=== PATIENT | male | born 1955 | race Caucasian/White ===

== ENCOUNTER 2017-05-29 16:28 | Inpatient (IN) ==
[2017-05-29] MEDS ORDERED: DILAUDID IV ONE ×2 (16:33→18:27)
[2017-05-29] MEDS ORDERED: ZOFRAN IV ONE (16:34)
[2017-05-29] MEDS ORDERED: DILAUDID ONE (16:53)
[2017-05-29 17:33] LABS: BASO% 0.5 % (0.0-0.8); EOS# 0.05 X1000 (0.0-0.7); EOS% 0.3 % (0.0-10.0); HEMATOCRIT 31.4 % (42.0-52.0); HEMOGLOBIN 11.4 g/dL (14.0-18.0); IMM GRAN# 0.07 X1000 (0.0-0.04); IMM GRAN% 0.4 % (0.0-0.5); LYMPH# 0.63 X1000 (1.2-3.4); LYMPH% 3.6 % (20.5-51.1); MANUAL DIFF NEEDED? NO; MCH 33.1 PG (27-31); MCHC 36.3 g/dL (33-37); MCV 91.3 FL (81-99); MONO# 0.69 X1000 (0.11-0.59); MONO% 3.9 % (1.7-9.3); MPV 8.9 FL (7.4-10.4); NEUT% 91.3 % (42.2-75.2); PLT 348 X1000 (130-400); RBC 3.44 XMIL (4.7-6.1)
[2017-05-29 17:46] LABS: INR 0.98; PROTIME 10.3 Seconds (9.2-11.7); PTT 25.6 Seconds (22.0-36.0)
--- NOTE | 2017-05-29 17:48 | PROVIDER DOCUMENTATION ---
This chart was entered by Timi Oropeza Scribrosalba, acting as scribe for Cornelio Nicholson MD. HPI-Musculoskeletal Pain/Inj - GENERAL Source: patient - HX OF PRESENT ILLNESS-MUSKULOSKELTAL Quality of Pain: reports: aching, sharp, throbbing Severity in ED: moderate, severe Onset/Duration: abrupt, just prior to arrival Timing: still present, constant Modifying Factors: worse with: movement, palpation Any recent injury?: No Locality of Occurance: Home Similar Symptoms Previously?: No Recently seen or treated by another doctor?: No - FALL INJURY Location of Pain/Injury: reports: pelvis (left hip), lower extremity (left hip/ thigh) Pain Radiation: reports: no radiation Reason for Fall: reports: slipped (ladder slipped) Symptoms prior to fall:: reports: none Loss of Consciousness: no loss of consciousness Injury Associated Symptoms: reports: joint pain, snap/crack/pop sensation, unable to bear weight. denies: arm pain, back/neck pain, chest pain, dizziness - HIP/PELVIS PAIN/INJURY Hip Pain Location: reports: hip (L) Pain Radiation: reports: no radiation Context / Method of Injury: reports: injury Associated Symptoms: reports: lower back pain <Cornelio Nicholson - Last Filed: 05/29/17 17:48> - GENERAL Source: patient <Jayy Carlos - Last Filed: 05/29/17 18:30> - GENERAL Chief Complaint: Hip Injury Stated Complaint: fall hip px Time Seen by Provider: 05/29/17 16:33 - HX OF PRESENT ILLNESS-MUSKULOSKELTAL Nature of Presenting Problem: Patient is a 62 yo/ M that presents to the ER via EMS post fall. patient was on ladder, when ladder slipped and patient fell onto his left hip. He was unable to ambulate. He has shortening and external rotation of left leg. Denies any other injury( back,neck, or head). No loc. (Timi Oropeza) Patient is a 62 yo/ M that presents to the ER via EMS post fall. patient was on ladder, when ladder slipped and patient fell onto his left hip. He was unable to ambulate. He has shortening and external rotation of left leg. Denies any other injury( back,neck, or head). No loc. (Cornelio Nicholson) Review of Systems - Adult - REVIEW OF SYSTEMS - ADULT Constitutional: denies: chills, fever Eyes: denies: decreased vision, blurred vision, double vision Ears, Nose, Mouth & Throat: denies: ear discharge, epistaxis, mouth/dental pain , mouth swelling Cardiovascular: denies: chest pain, palpitations, syncope Respiratory: denies: hemoptysis, shortness of breath, wheezing Gastrointestinal: denies: abdominal pain, nausea, vomiting Genitourinary: reports: no symptoms reported Musculoskeletal: reports: joint pain. denies: back pain, neck pain Integumentary: reports: no symptoms reported Neurological: reports: no symptoms reported Psychiatric: reports: no symptoms reported Endocrine: reports: no symptoms reported Hematologic/Lymphatic: reports: no symptoms reported Allergic/Immunologic: reports: no symptoms reported All Other Systems: Reviewed and Negative <Cornelio Nicholson - Last Filed: 05/29/17 17:48> - REVIEW OF SYSTEMS - ADULT Constitutional: denies: fever <Jayy Carlos - Last Filed: 05/29/17 18:30> Past History - Adult - PAST MEDICAL HISTORY-ADULT Review of Records: reports: Old Records Reviewed, Nursing Assessment Review, Medications Reviewed Cardiovascular: reports: HTN Gastrointestinal: reports: GERD - PRIOR SURGERIES/PROCEDURES Surgical/Procedure History: reports: gastric bypass, other (penile implant x 2) - IMMUNIZATION STATUS Childhood Immunizations: See Nurse Assessment Flu Vaccine: See Nurse Assessment - FAMILY HISTORY Family History: reviewed, not pertinent - SOCIAL HISTORY Living Situation: family <Cornelio Nicholson - Last Filed: 05/29/17 17:48> - PAST MEDICAL HISTORY-ADULT Review of Records: reports: Old Records Reviewed, Nursing Assessment Review, Medications Reviewed, Social history reviewed & non-contributory. <Jayy Carlos - Last Filed: 05/29/17 18:30> Physical Exam-Injury Related - Physical Exam-Injury Related Initial Vital Signs Reviewed: Yes General Appearance: alert, mild distress, moderate distress Eyes: PERRL/EOMI, pink conjunctivae Head, Ears, Nose, Mouth & Throat: normocephalic/atraumatic, moist mucous membranes, normal ENT inspection Neck: non-tender, full range of motion, normal inspection Respiratory: chest non-tender, lungs clear, normal breath sounds, no respiratory distress, no accessory muscle use Cardiovascular: regular rate, rhythm, no edema, no murmur Abdominal Exam: normal bowel sounds, non tender, soft, no organomegaly, no pulsatile mass Back Exam: normal inspection, no CVA tenderness, no vertebral tenderness Extremity: no pedal edema, normal capillary refill, tenderness (left hip, upper femur), other (left leg is shortened and externally rotated) Integumentary: normal color, warm/dry Neurologic: wildlife veterinarian II-XII nml as tested, no motor/sensory deficits Psych/Mental Status: normal mood/affect, normal thought content, normal thought process, oriented x 3 - Glascow Coma Score Best Eye Response (Yoly): (4) open spontaneously Best Verbal Response (Yoly): (5) oriented Best Motor Response (Yoly): (6) obeys commands [place] Total: 15 <Cornelio Nicholson - Last Filed: 05/29/17 17:48> - Physical Exam-Injury Related Initial Vital Signs Reviewed: Yes General Appearance: alert <Jayy Carlos - Last Filed: 05/29/17 18:30> Progress - PLAN OF CARE/RESULTS Result Diagrams: 05/29/17 17:05 - CHANGE OF SHIFT REPORT (ED Provider) Report Given and Care Transferred to:: Dr. Carlos Time of Transfer: 18:00 Items Pending: Labs, XRAY Results <Cornelio Nicholson - Last Filed: 05/29/17 17:48> - PLAN OF CARE/RESULTS Result Diagrams: 05/29/17 17:05 05/29/17 17:05 <Jayy Carlos - Last Filed: 05/29/17 18:30> - PLAN OF CARE/RESULTS Progress/Plan/Lab Results: Vital Signs - 8 hr 05/29/17 16:37 05/29/17 18:17 Temperature 98.1 F Pulse Rate 81 87 Respiratory Rate 20 16 Blood Pressure 141/76 152/81 O2 Sat by Pulse Oximetry 99 100 Laboratory Results - last 24 hr 05/29/17 05/29/17 05/29/17 17:05 17:05 17:05 WBC 17.61 H RBC 3.44 L Hgb 11.4 L Hct 31.4 L MCV 91.3 MCH 33.1 H MCHC 36.3 RDW Std Deviation 11.3 L Plt Count 348 MPV 8.9 Immature Gran % (Auto) 0.4 Neut % (Auto) 91.3 H Lymph % (Auto) 3.6 L [place] % (Auto) 3.9 Eos % (Auto) 0.3 Baso % (Auto) 0.5 Immature Gran # (Auto) 0.07 H Neut # (Auto) 16.09 H Lymph # (Auto) 0.63 L [place] # (Auto) 0.69 H Eos # (Auto) 0.05 Baso # (Auto) 0.08 PT 10.3 INR 0.98 PTT (Actin FS) 25.6 Sodium 125 L Potassium 3.0 L Chloride 87 L Carbon Dioxide 25 Anion Gap 13 BUN 6 L Creatinine 0.6 L Estimated GFR/1.73 m2 > 60 BUN/Creatinine Ratio 10 Glucose 101 Calculated Osmolality 249 Calcium 8.4 L Total Bilirubin 0.30 AST 40 H ALT 31 Alkaline Phosphatase 63 Total Protein 5.8 L Albumin 4.0 Globulin 1.8 Albumin/Globulin Ratio 2.2 Urine Source Plasma/Serum Ethyl Alc 05/29/17 05/29/17 17:05 17:59 WBC RBC Hgb Hct MCV MCH MCHC RDW Std Deviation Plt Count MPV Immature Gran % (Auto) Neut % (Auto) Lymph % (Auto) [place] % (Auto) Eos % (Auto) Baso % (Auto) Immature Gran # (Auto) Neut # (Auto) Lymph # (Auto) [place] # (Auto) Eos # (Auto) Baso # (Auto) PT INR PTT (Actin FS) Sodium Potassium Chloride Carbon Dioxide Anion Gap BUN Creatinine Estimated GFR/1.73 m2 BUN/Creatinine Ratio Glucose Calculated Osmolality Calcium Total Bilirubin AST ALT Alkaline Phosphatase Total Protein Albumin Globulin Albumin/Globulin Ratio Urine Source CLEAN CATCH Plasma/Serum Ethyl Alc 83 H Orders Category Date Time Status CHEST-1 VIEW [RAD] Stat Exams 05/29/17 16:34 Completed FEMUR MIN 2 VIEWS LEFT [RAD] Stat Exams 05/29/17 16:34 Completed PELVIS [RAD] Stat Exams 05/29/17 16:34 Completed ALCOHOL BLOOD Stat Lab 05/29/17 17:05 Completed CBC WITH DIFF [HEME] Stat Lab 05/29/17 17:05 Completed COMPREHENSIVE METABOLIC PANEL [CHEM] Stat Lab 05/29/17 17:05 Completed PROTIME WITH INR [COAG] Stat Lab 05/29/17 17:05 Completed PTT [COAG] Stat Lab 05/29/17 17:05 Completed TYPE & SCREEN [BBK] Stat Lab 05/29/17 18:05 Ordered URINALYSIS W/POSS RFLX CULT-1 [URINALYSIS] Stat Lab 05/29/17 17:59 Results Hydromorphone [Dilaudid] Med 05/29/17 16:33 Discontinued 1 mg IV NOW ONE Hydromorphone [Dilaudid] Med 05/29/17 18:27 Discontinued 1 mg IV NOW ONE Hydromorphone [Dilaudid] Med 05/29/17 16:53 Discontinued 2 mg .ROUTE .STK-MED ONE Ondansetron [Zofran] Med 05/29/17 16:34 Discontinued 4 mg IV NOW ONE EKG [EKG] Stat Ther 05/29/17 16:39 Ordered Departure <Cornelio Nicholson - Last Filed: 05/29/17 17:48> - Departure Date of Disposition Decision: 05/29/17 Time of Disposition Decision: 18:29 Certified Medical Emergency: Emergent - Critical Care Note This patient required my direct & personal management of CC.: No <Jayy Carlos - Last Filed: 05/29/17 18:30> - Departure DIAGNOSIS: Fracture, intertrochanteric, left femur Qualifiers: Encounter type: initial encounter Fracture type: closed Fracture alignment: displaced Qualified Code(s): S72.142A - Displaced intertrochanteric fracture of left femur, initial encounter for closed fracture Disposition: ADMITTED INPATIENT 09 Condition: Good Referrals and Follow-Ups: Adam Bolaños DO [Primary Care Provider] - Attestation - Physician/ EDDIE Attestation The physician spent face to face time with patient:: Yes Advanced Practice Provider documentation review:: Supervising physician onsite and consulted in the evaluation and care of this patient. The physician did have a face to face encounter with the patient. <Cornelio Nicholson - Last Filed: 05/29/17 17:48> - Physician/ EDDIE Attestation Patient care was provided by Advanced Practice Provider:: No The physician spent face to face time with patient:: Yes Advanced Practice Provider documentation review:: Supervising physician onsite and consulted in the evaluation and care of this patient. The physician did have a face to face encounter with the patient. <Jayy Carlos. - Last Filed: 05/29/17 18:30> This chart was documented by the indicated scribe, (Timi Oropeza, Scribe) and accurately reflects the services I performed and decisions made by me, Cornelio Nicholson MD, as attested by the provider's signature.
[2017-05-29 18:02] LABS: AGAP 13; ALKALINE PHOSPHATASE 63 U/L (32-122); BUN 6 mg/dL (8-22); CALCIUM 8.4 mg/dL (8.8-10.2); CHLORIDE 87 mmol/L (98-107); COSMO 249; GOT 40 U/L (10-34); GPT 31 U/L (10-44); SODIUM 125 mmol/L (136-145); TCO2 25 mmol/L (25-35); TOTAL PROTEIN 5.8 g/dL (6.3-8.3)
--- NOTE | 2017-05-29 18:05 | Diag Imaging Result Doc PS360 ---
EXAM: CHEST-1 VIEW HISTORY: pre-op TECHNIQUE: Supine COMPARISON: None. FINDINGS: The lungs are well expanded. The heart is not enlarged. The vessels are not distended. There are no infiltrates. No effusion identified. There is a granuloma in the upper left lung. IMPRESSION: Negative exam.. Electronically signed by Corey Cox 05/29/2017 6:03 PM
--- NOTE | 2017-05-29 18:09 | Diag Imaging Result Doc PS360 ---
EXAM: PELVIS HISTORY: trauma TECHNIQUE: Single view COMPARISON: None. FINDINGS: There is a fracture through the proximal femur. The femoral head remains in the acetabulum. The femoral shaft is rotated and superiorly placed. No fracture to the pelvis. IMPRESSION: Proximal right femur fracture. Electronically signed by Corey Cox 05/29/2017 6:07 PM
--- NOTE | 2017-05-29 18:13 | Diag Imaging Result Doc PS360 ---
EXAM: FEMUR MIN 2 VIEWS LEFT HISTORY: trauma TECHNIQUE: Four views COMPARISON: None. FINDINGS: There is a fracture to the proximal femur. This extends across the intertrochanteric region into the lesser trochanter. I do not identify fracture to the greater trochanter. Femoral head remains in the acetabulum. The femoral neck and greater trochanter are superiorly angled. The proximal shaft is superiorly placed and rotated. IMPRESSION: Fracture to the proximal femur. Electronically signed by Corey Cox 05/29/2017 6:11 PM
[2017-05-29 18:17] LABS: URINE CULTURE NEEDED? NO; URINE MICRO REVIEW NEEDED? NO; URINE SOURCE CLEAN CATCH
--- NOTE | 2017-05-29 18:28 | ED EKG INTERP ---
This chart was entered by Sylvia De Leon Scribe, acting as scribe for Jayy Carlos MD. EKG Interpretation - EKG Time of EKG reading by physician:: 18:08 EKG Read and Signed by:: Jayy Carlos EKG Interpretation (*Must complete 3 of following elements*): Normal Rate: 78 Rhythm: NSR with sinus arrhythmia ST Wave: non-specific ST changes Comments: Abnormal ECG Attestation - Physician/ EDDIE Attestation Patient care was provided by Advanced Practice Provider:: No The physician spent face to face time with patient:: Yes Advanced Practice Provider documentation review:: Supervising physician onsite and consulted in the evaluation and care of this patient. The physician did have a face to face encounter with the patient. This chart was documented by the indicated scribe, (Sylvia De Leon Scribe) and accurately reflects the services I performed and decisions made by me, Jayy Carlos MD, as attested by the provider's signature.
[2017-05-29 18:35] LABS: BILIRUBIN URINE NEGATIVE (NEGATIVE); BLOOD URINE NEGATIVE (NEGATIVE); COLOR YELLOW; GLUCOSE URINE NEGATIVE (NEGATIVE); LEUKOCYTES URINE NEGATIVE (NEGATIVE); NITRITE URINE NEGATIVE (NEGATIVE); PROTEIN URINE NEGATIVE (NEGATIVE); SP GRAVITY URINE 1.011; TURBIDITY URINE CLEAR (CLEAR); UROBILINOGEN URINE NORMAL (NORMAL)
[2017-05-29 18:38] LABS: UR EPITHELIAL CELLS <10 /HPF (<10); URINE BACTERIA NEGATIVE /HPF; URINE RBC <10 /HPF (<10); URINE WBC <10 /HPF (<10)
--- NOTE | 2017-05-29 19:38 | HISTORY AND PHYSICAL ---
HISTORY OF PRESENT ILLNESS: This is a 62-year-old who presented to the emergency room on 05/29/2017. He was on a ladder. He estimates he was about 10 feet up and the ladder slipped down on the wooden deck and he suffered a right proximal femur fracture. PAST MEDICAL HISTORY: Apparently he fell off a ladder 10 years ago and suffered a left tib-fib fracture following which he gained a lot a weight and went through gastric bypass and lost quite a bit of that weight. He was over 300 pounds and now down to 210. He has history of hypertension, otherwise unremarkable past medical history. His daughter was at the bedside, but did not report family history. ALLERGIES: He has no known drug allergies. SOCIAL HISTORY: He does drink daily and he quit smoking about 6 months ago. REVIEW OF SYSTEMS: General: No weight gain or loss. No fever or chills. HEENT: Unremarkable. Respiratory: No increased work of breathing or dyspnea. Cardiovascular: No chest pain or tachy palpitation. Gastrointestinal/genitourinary: Unremarkable. Musculoskeletal/Neurologic: No significant complaints. Endocrinologic/hematologic: No significant history. PHYSICAL EXAMINATION: VITAL SIGNS: Temperature 98.1 degrees, pulse 87, respirations 16, blood pressure 150/81. Weight 210 pounds. Height 6 feet 1 inch. HEENT: Pupils are equal and round. LUNGS: Clear in all lung osei. CARDIOVASCULAR: Regular rhythm and rate without murmur or S3. ABDOMEN: Soft. SKIN: Warm and dry. CVP less than 6 cm. LABORATORY DATA: White blood cell count 26731, hematocrit 31, platelet count 348,000. Sodium 125, potassium 3.0, chloride 87, bicarb 25, BUN 6, creatinine 0.6. Liver functions unremarkable. Albumin 4.0. Pro time was 10.3. PTT was 25. Urinalysis unremarkable. IMAGING: Femur x-ray fracture of the proximal femur. Chest x-ray reported negative exam. Hip and pelvis x-ray as well as femur x-ray proximal right femur fracture. ASSESSMENT AND PLAN: 1. Proximal right femur fracture. Orthopedic I believe has seen and are planning on doing open reduction internal fixation in the morning. 2. History of alcohol. I am not sure if we will have withdrawal or not. Apparently he has quit cold turkey before and not had symptoms. 3. History of hypertension. We will watch blood pressure. 4. Status post gastric bypass surgery with good success. His general nutrition looks good. We will give him Dilaudid for pain, 1-2 mg of Dilaudid IV q.3 hours p.r.n. I may just try 1 mg q.3 hours p.r.n. Put his consult to Orthopedic. We will give normal saline at 85 mL an hour. He has a Pascal catheter in place. cc: Toan Arias MD
[2017-05-29] MEDS ORDERED: NORCO-7.5 PO PRN (20:15)
[2017-05-29] MEDS ORDERED: NS 1,000 ML IV SCH (20:15)
[2017-05-29] MEDS ORDERED: TYLENOL PO PRN (20:15)
[2017-05-29] MEDS ORDERED: NS 1,000 ML ONE (20:27)
[2017-05-29] MEDS: DILAUDID IV PRN ×2 (20:29→23:31)
[2017-05-30] MEDS: DILAUDID IV PRN ×3 (02:31→08:51)
--- NOTE | 2017-05-30 04:52 | CONSULTATION ---
DATE OF CONSULTATION: 05/29/2017 CHIEF COMPLAINT: Left hip injury. HISTORY OF PRESENT ILLNESS: Jv Olvera is a 62-year-old male who fell from a ladder, injuring his left hip. He was seen in the emergency room where he was diagnosed with a femur fracture. I was asked to see him in orthopedic consultation. He complains of left hip pain and inability to ambulate. PHYSICAL EXAMINATION: General: Well-developed, well-nourished male. He is alert, oriented, and cooperative with the exam. Vital Signs: Stable. He is afebrile. Extremities: He has pain with any range of motion of his left hip. His leg is shortened and externally rotated. His foot is neurovascularly intact. LABORATORY DATA: X-rays show a left subtrochanteric femur fracture. IMPRESSION: Left subtrochanteric femur fracture. PLAN: I think we should proceed with a left long trochanteric fixation nail placement. I have discussed this with him and his daughter. I have discussed with them the risks, benefits, and alternatives of surgery including, but not limited to bleeding, nerve damage, infection, risk from anesthesia, hardware failure, malunion, nonunion, up to and including loss of limb, life, and other imponderables. All questions were answered. No guarantees were given. They requested to proceed with this plan. We will schedule surgery tomorrow when time is available in the operating room. cc: Tarun Castillo MD
[2017-05-30 06:36] LABS: MANUAL DIFF NEEDED? NO
[2017-05-30 06:57] LABS: INR 0.96; PROTIME 10.1 Seconds (9.2-11.7); PTT 26.6 Seconds (22.0-36.0)
[2017-05-30 07:07] LABS: AGAP 9; ALBUMIN 3.8 g/dL (3.5-5.0); ALKALINE PHOSPHATASE 62 U/L (32-122); BUN 11 mg/dL (8-22); CALCIUM 8.1 mg/dL (8.8-10.2); CHLORIDE 94 mmol/L (98-107); COSMO 265; GOT 55 U/L (10-34); GPT 28 U/L (10-44); MAGNESIUM 1.7 mg/dL (1.5-2.7); POTASSIUM 3.7 mmol/L (3.5-5.1); SODIUM 132 mmol/L (136-145); TCO2 29 mmol/L (25-35); TOTAL BILIRUBIN 0.66 mg/dL (0.20-1.00); TOTAL PROTEIN 5.6 g/dL (6.3-8.3)
[2017-05-30 07:13] LABS: FREE T4 1.29 ng/dL (0.93-1.70)
[2017-05-30 07:17] LABS: BASO% 0.9 % (0.0-0.8); EOS# 0.05 X1000 (0.0-0.7); EOS% 0.9 % (0.0-10.0); HEMATOCRIT 26.9 % (42.0-52.0); HEMOGLOBIN 9.5 g/dL (14.0-18.0); LYMPH# 0.73 X1000 (1.2-3.4); MCH 32.9 PG (27-31); MCHC 35.3 g/dL (33-37); MCV 93.1 FL (81-99); MONO% 10.7 % (1.7-9.3); MPV 9.4 FL (7.4-10.4); NEUT% 74.5 % (42.2-75.2); PLT 314 X1000 (130-400); RBC 2.89 XMIL (4.7-6.1)
--- NOTE | 2017-05-30 09:16 | PROGRESS NOTE ---
DATE: 05/30/2017 SUBJECTIVE: Mr. Olvera had a pretty good night. Dr. Castillo was explaining surgery to him. His left leg was in Xiong's traction. OBJECTIVE: Vital signs: He remains afebrile. Pulse 70, respirations 18, blood pressure 118/78. Lungs: Are clear in all lung osei. Cardiovascular: Regular rate without murmur or S3. Abdomen: Soft. Skin: Warm and dry. : Urine output is 900 mL. REVIEW LAB FROM YESTERDAY: Femur x-ray, hip and pelvis x-ray: Reported the femur x-ray on the left. Fracture to the proximal femur. On pelvic and hip x-ray, there was reported a right femur fracture. ASSESSMENT: 1. He has a left proximal femur fracture with subtrochanteric, scheduled for surgery today. 2. History of alcohol, aware. 3. History of hypertension. 4. Status post gastric bypass. PLAN: Review of orders. No change. cc: Toan Arias MD
[2017-05-30] MEDS ORDERED: DIPRIVAN 1% ONE (11:17)
[2017-05-30] MEDS ORDERED: FENTANYL ONE (11:17)
[2017-05-30] MEDS ORDERED: XYLOCAINE-MPF 2% ONE (11:18)
[2017-05-30] MEDS ORDERED: QUELICIN (DOSE) ONE (11:18)
[2017-05-30] MEDS ORDERED: ZEMURON ONE (11:23)
[2017-05-30] MEDS ORDERED: NEOSPORIN G.U. IRRIGANT ONE (11:59)
[2017-05-30] MEDS: KEFZOL 2 GM/D5W 2 GM/50 ML IVPB IV ONE ×2 (12:02→13:50)
[2017-05-30] MEDS ORDERED: VERSED ONE (12:04)
[2017-05-30] MEDS ORDERED: EPHEDRINE ONE (12:26)
[2017-05-30] MEDS ORDERED: OFIRMEV 1000 MG/ISOTONIC SOLN 1,000 MG/100 ML BOTTLE ONE (12:54)
[2017-05-30] MEDS: DILAUDID ONE ×4 (13:23→13:43)
[2017-05-30] MEDS ORDERED: HALDOL IV PRN (13:44)
[2017-05-30] MEDS ORDERED: MILK OF MAGNESIA PO PRN (13:45)
[2017-05-30] MEDS ORDERED: ZOFRAN IV PRN (13:46)
[2017-05-30] MEDS: OXY IR PO PRN ×2 (15:24→18:34)
[2017-05-30] MEDS: PRILOSEC PO SCH (15:24)
[2017-05-30] MEDS: NS 1,000 ML IV SCH (15:26)
--- NOTE | 2017-05-30 15:35 | OPERATIVE NOTE ---
PROCEDURE DATE: 05/30/2017 PREOPERATIVE DIAGNOSIS: Left subtrochanteric femur fracture. POSTOPERATIVE DIAGNOSIS: Left subtrochanteric femur fracture. PROCEDURE PERFORMED: Left long trochanteric fixation nail placement. ANESTHESIA: General. SURGEON: Dr. Castillo MARKETING DATABASE COORDINATOR: Daria Kaiser PA-C, who was present throughout the case and was critical for assistance with reduction of the fracture, placement of the implants and wound closure, and her insistence greatly reduced anesthesia and operative time, and improved efficiency in the operating room. COMPLICATIONS: None. BLOOD LOSS: Minimal. DESCRIPTION OF PROCEDURE: The patient was brought to the operative suite and placed in supine position. After successful administration of general anesthesia, the patient placed on the OSI table in the usual position for left hip. The left hip and leg were prepped and draped in the usual sterile fashion. A longitudinal incision was made proximal tip to the greater trochanter. The guide pin was placed in the center of the femoral canal on AP and lateral images. It was reamed with a cannulated reamer, and then a ball-tipped guidepin was buried in distal metaphysis. Proper length nail of 420 mm was measured, and was reamed to 13 mm with the flexible reamers, and a 420 mm nail was driven into place. Then, through a stab incision laterally, a guide pin was placed in the center of the femoral head on AP and lateral images. It was measured to 105 mm. This was reamed, and the helical blade was driven until it was seated and then locked proximally. The proximal guide was removed. X-rays showed excellent placement of the proximal hardware and excellent reduction of the fracture. Traction was released. Using the perfect circles technique, through stab incisions, the distal locking screws were placed. These were drilled and measured to the proper length of 52 and 58 mm. Once these were driven into place and verified to be in good position, the wounds were copiously irrigated. Skin edge approximated with 2-0 Vicryl. Skin was closed with skin alvarez, and a sterile dressing was applied. The patient tolerated the procedure well without complication. At the end the procedure, all counts correct x2. The patient was transferred to the recovery room in stable condition. cc: Tarun Castillo MD
[2017-05-30] MEDS: KEFZOL 2 GM/D5W 2 GM/50 ML IVPB IV SCH (21:03)
[2017-05-30] MEDS: COLACE PO SCH (21:03)
[2017-05-30] MEDS: TYLENOL PO SCH (21:03)
[2017-05-30] MEDS: MORPHINE IV PRN (21:04)
[2017-05-31] MEDS: MORPHINE IV PRN ×8 (00:50→21:03)
[2017-05-31] MEDS: OXY IR PO PRN ×3 (01:57→12:23)
[2017-05-31] MEDS: TYLENOL PO SCH ×3 (05:22→20:04)
[2017-05-31] MEDS: KEFZOL 2 GM/D5W 2 GM/50 ML IVPB IV SCH (05:25)
[2017-05-31 06:05] LABS: HEMATOCRIT 22.7 % (42.0-52.0); HEMOGLOBIN 7.9 g/dL (14.0-18.0)
[2017-05-31 06:06] LABS: AGAP 8; BUN 9 mg/dL (8-22); CALCIUM 8.2 mg/dL (8.8-10.2); CHLORIDE 99 mmol/L (98-107); COSMO 273; POTASSIUM 3.4 mmol/L (3.5-5.1); SODIUM 136 mmol/L (136-145); TCO2 29 mmol/L (25-35)
--- NOTE | 2017-05-31 08:05 | PROGRESS NOTE ---
DATE: 05/31/2017 SUBJECTIVE: Jv Olvera is a 62-year-old male who is postoperative day 1 from a left long trochanteric fixation nail placement for a subtrochanteric femur fracture. He has complaints of pain in his leg, and wishes to go to rehab now. OBJECTIVE: Physical exam reveals a well-developed, well-nourished male. He is alert, oriented, and cooperative with exam. His vital signs are stable. He is afebrile. His hematocrit, however, is 22.7%. His hemoglobin is 7.9. His leg is neurovascularly intact. He has brisk capillary refill, intact sensation to light touch. His calf is soft without sign of deep venous thrombosis. His dressings are clean, dry, and intact. IMPRESSION: Stable left hip with trochanteric fixation nail placement. PLAN: We will change his dressing tomorrow. He will continue to work with Physical Therapy. We will transfuse him 2 units today as well. He will likely go to rehab the first part of the week. cc: Tarun Castillo MD
[2017-05-31] MEDS: PRILOSEC PO SCH (09:20)
[2017-05-31] MEDS: FERROUS SULFATE PO SCH (09:21)
[2017-05-31] MEDS: PERIDEX MT SCH ×2 (09:21→20:04)
--- NOTE | 2017-05-31 10:12 | PROGRESS NOTE ---
DATE: 05/31/2017 SUBJECTIVE: He does not feel real good today. In a lot of pain. He is about to start physical therapy. Would like to go back on a regular diet. OBJECTIVE: Vital Signs: Temperature 99.1 degrees, pulse 80, respirations 16, blood pressure 132/73. Lungs: Clear in all lung osei. Cardiovascular: Regular rhythm and rate without murmur or S3. Abdomen: Soft. Skin is warm and dry. Urine output 2400 mL. LAB: From yesterday reviewed. Hematocrit 26. Preop it was 31, and then today, hematocrit is 22, hemoglobin 7.9. ASSESSMENT AND PLAN: Left leg with swelling around the hip. He has good pedal pulses, 2+ and symmetrical. Continue physical therapy. He has normal saline going at 75 mL/h. Put him on a regular diet. No sign of significant alcohol withdrawals at this point. Note, acute blood loss anemia. We are going to follow hemoglobin and hematocrit. If hemoglobin drops below 7, I think we need to transfuse him. At this point, we will put him on some iron. cc: Toan Arias MD
[2017-05-31] MEDS: ICAR-C PO SCH (10:44)
[2017-05-31] MEDS: NS 1,000 ML IV SCH ×2 (15:37→20:04)
[2017-05-31] MEDS: COLACE PO SCH (20:04)
[2017-05-31] MEDS: DESYREL PO SCH (20:08)
[2017-06-01] MEDS: OXY IR PO PRN ×4 (03:05→23:13)
[2017-06-01] MEDS: TYLENOL PO SCH ×3 (05:21→20:08)
[2017-06-01 05:37] LABS: HEMATOCRIT 25.7 % (42.0-52.0); HEMOGLOBIN 8.9 g/dL (14.0-18.0)
[2017-06-01] MEDS: MORPHINE IV PRN ×5 (05:55→21:59)
[2017-06-01] MEDS: NS 1,000 ML IV SCH ×2 (09:19→22:04)
[2017-06-01] MEDS: PERIDEX MT SCH ×2 (09:20→20:08)
[2017-06-01] MEDS: ICAR-C PO SCH (09:20)
[2017-06-01] MEDS: NORVASC PO SCH (09:20)
[2017-06-01] MEDS: PRILOSEC PO SCH (09:21)
--- NOTE | 2017-06-01 09:40 | PROGRESS NOTE ---
DATE: 06/01/2017 SUBJECTIVE: Mr. Olvera has a better day today. Pain is less and was able to sleep some last night. Breathing is comfortable. OBJECTIVE: Vital Signs: Remains afebrile. Temperature 98 degrees, pulse 67, respirations 18, blood pressure 120/73 lungs are clear in all lung osei cardiovascular regular rate without murmur or S3. Abdomen: Soft. Skin: Warm and dry. Urine output 1400 mL. LAB: Hemoglobin 8.9, hematocrit 25. He got, I think, a unit of blood yesterday. ASSESSMENT AND PLAN: 1. Stable left trochanteric fixation placement. He is doing well. Continue physical therapy. He received, I think 1 unit of packed red blood cells yesterday. 2. Acute blood loss anemia. Received 1 unit of packed red blood cells. Hemoglobin 8.9, hematocrit 25. 3. History of alcohol consumption. No sign of withdrawals at this point and doing well. 4. Review of his orders. I do not see any change at this point. He is on oxycodone IR. He is on trazodone 150 mg at bedtime. Getting iron, ascorbic acid 1 a day. He is getting ferrous sulfate, as well, Colace 200 mg at bedtime, amlodipine. I think that probably will want to put him on anticoagulant postoperatively. cc: Toan Arias MD
[2017-06-01] MEDS: FERROUS SULFATE PO SCH (14:15)
[2017-06-01] MEDS: COLACE PO SCH (20:08)
[2017-06-01] MEDS: DESYREL PO SCH (22:09)
[2017-06-02] MEDS: MORPHINE IV PRN ×6 (04:52→21:08)
[2017-06-02] MEDS: TYLENOL PO SCH ×3 (04:52→21:07)
[2017-06-02 05:59] LABS: HEMOGLOBIN 8.7 g/dL (14.0-18.0)
[2017-06-02] MEDS: OXY IR PO PRN ×2 (07:23→18:41)
--- NOTE | 2017-06-02 08:20 | PROGRESS NOTE ---
DATE: 06/02/2017 SUBJECTIVE: Mr. Olvera was lying in bed this morning. Says the 1st few days were a little rough but he has actually gotten a lot of relief from the pain now. OBJECTIVE: Left Lower Extremity Examination: Just a little bit of drainage out of the most superior incision. The other incisions look great. He is neurovascularly intact to the left lower extremity. Calf was soft. ASSESSMENT: Status post left trochanteric femoral nailing for a subtrochanteric femur fracture. PLAN: I think Mr. Olvera is doing well. He has continued to get with therapy and we will get everything set up for rehab, probably starting tomorrow. cc: Mauricio Murray MD
[2017-06-02] MEDS: NORVASC PO SCH (09:11)
[2017-06-02] MEDS: FERROUS SULFATE PO SCH (09:11)
[2017-06-02] MEDS: PERIDEX MT SCH ×2 (09:11→21:08)
[2017-06-02] MEDS: PRILOSEC PO SCH (09:12)
[2017-06-02] MEDS: ICAR-C PO SCH (09:12)
[2017-06-02] MEDS: NS 1,000 ML IV SCH (11:40)
--- NOTE | 2017-06-02 13:09 | PROGRESS NOTE ---
DATE: 06/02/2017 SUBJECTIVE: Mr. Olvera is feeling much better, much less pain, and more encouraged. Comfortable, breathing comfortably, remains afebrile. OBJECTIVE: Vital Signs: Temperature 98.5 degrees, pulse 80, respirations 18, blood pressure 139/67. HEENT: Pupils are equal, round. Lungs: Clear in all lung osei. Cardiovascular: Regular rate without murmur or S3. Abdomen: Soft. Skin: Warm and dry. Urine output is 3200 mL. LABORATORY STUDIES: Hemoglobin 8.7 hematocrit 25, which is stable. ASSESSMENT AND PLAN: 1. Status post left trochanteric femoral nailing for subtrochanteric femur fracture. He is doing very well. Continue physical therapy. 2. Nutrition looks good. Eating well. 3. Acute blood loss anemia, stable. Hematocrit 25. 4. History of alcohol consumption. No sign of withdrawals. Doing well. Set him up for rehab hopefully in the morning. Looking at orders, I do not see anything to change. He gets the trazodone 150 mg at bedtime, he is on oxycodone IR 5 mg q.3 h. p.r.n. pain, and ferrous sulfate 325 mg a day. He is also given iron carbonyl ascorbic acid 1 a day and Norvasc 5 mg a day. Normal saline going at 75 mL an hour. cc: Toan Arias MD
[2017-06-02] MEDS: DESYREL PO SCH (21:08)
[2017-06-02] MEDS: COLACE PO SCH (21:08)
[2017-06-03] MEDS: NS 1,000 ML IV SCH ×2 (03:24→15:23)
[2017-06-03] MEDS: OXY IR PO PRN ×4 (03:24→18:49)
[2017-06-03] MEDS: TYLENOL PO SCH ×3 (06:35→20:46)
[2017-06-03] MEDS: PRILOSEC PO SCH (08:00)
[2017-06-03] MEDS: FERROUS SULFATE PO SCH (08:00)
[2017-06-03] MEDS: PERIDEX MT SCH ×2 (08:00→20:45)
[2017-06-03] MEDS: ICAR-C PO SCH (08:00)
[2017-06-03] MEDS: NORVASC PO SCH (08:00)
[2017-06-03] MEDS: MORPHINE IV PRN ×4 (10:02→20:46)
--- NOTE | 2017-06-03 15:08 | PROGRESS NOTE ---
DATE: 06/03/2017 SUBJECTIVE: He is feeling much better. He is anxious to go to rehab. No complaints. Bowels have been moving. He is eating well. OBJECTIVE: Vital signs: Temperature 98.6 degrees, pulse 80, respirations 18, blood pressure 138/82. CVP less than 6 cm. Lungs: Clear in all lung osei. Cardiovascular: Regular rhythm and rate without murmur or S3. LABORATORY: Urine output 1600 mL. ASSESSMENT AND PLAN: 1. Status post left trochanteric femoral nailing for subtrochanteric femur fracture. Doing very well. Ready for rehab. 2. Nutrition is good. 3. Acute blood loss anemia. Hematocrit is stable. 4. History of alcohol. He has not shown any sign of alcohol withdrawal. Hematocrit 25 this morning. Review of orders: I do no see any change. We will get him ready for rehab. He would like to go to [facility] when a bed is open. cc: Toan Arias MD
[2017-06-03] MEDS: DESYREL PO SCH (20:45)
[2017-06-03] MEDS: COLACE PO SCH (20:46)
[2017-06-04] MEDS: OXY IR PO PRN ×7 (00:29→23:16)
[2017-06-04] MEDS: MORPHINE IV PRN ×5 (01:39→22:08)
[2017-06-04] MEDS: TYLENOL PO SCH ×3 (05:44→20:31)
[2017-06-04] MEDS: NS 1,000 ML IV SCH ×2 (05:45→16:16)
[2017-06-04] MEDS: PERIDEX MT SCH ×2 (08:23→20:31)
[2017-06-04] MEDS: PRILOSEC PO SCH (08:23)
[2017-06-04] MEDS: ICAR-C PO SCH (08:23)
[2017-06-04] MEDS: NORVASC PO SCH (08:24)
--- NOTE | 2017-06-04 08:27 | PROGRESS NOTE ---
DATE: 06/04/2017 SUBJECTIVE: Mr. Olvera is a 62-year-old male who is postoperative day 5 from a left long trochanteric fixation nail placement for subtrochanteric femur fracture. He has no new complaints and he states he is awaiting to go to rehab. OBJECTIVE: General: He is well-developed, well-nourished male. He is alert, oriented, and cooperative with the examination. Vital signs: Stable. He is afebrile. Extremities: His incisions are clean, dry, and intact. No sign of infection. His calf is soft. His left leg is neurovascularly intact. ASSESSMENT: Stable postoperative day 5 from a left long trochanteric fixation nail placement. PLAN OF CARE: Mr. Olvera is doing well. He is to continue ambulating well with physical therapy. He is stable to go to rehab. We will have him follow up as an outpatient in the office when he is discharged to rehab. Dictated by CARLA Dozier for Tarun Castillo MD cc: CARLA Dozier MD
[2017-06-04] MEDS: FERROUS SULFATE PO SCH (08:30)
--- NOTE | 2017-06-04 16:28 | PROGRESS NOTE ---
DATE: 06/04/2017 SUBJECTIVE: This patient states that he is feeling better. He is complaining of mild pain at the level of the proximal thigh. He also has some swelling. Bowels have been moving. He is eating well. OBJECTIVE: Vital Signs: Temperature 98.1 degrees, pulse 69, respiratory rate 18, blood pressure 161/88, oxygen saturation 100% on room air. HEENT: Head normocephalic. No trauma. PERRLA. Neck: Supple. No JVD. No masses. Central trachea. Chest: Clear to auscultation. No wheezing. No rales. Abdomen: Soft, nontender, nondistended. No hepatosplenomegaly. Extremities: Left thigh edema mostly at the level of the proximal thigh. He has 3 wounds that look clean, dry, and intact. Neurological: The patient is alert and oriented x3. No focal deficits. No tremors. LABORATORY: No lab work done today. ASSESSMENT AND PLAN: 1. Left subtrochanteric femur fracture status post left trochanteric femoral nailing. He is doing well. Physical therapy is on board. He is ready to be discharged to a rehab center. 2. Acute blood loss anemia, stable. We will monitor his hemoglobin and hematocrit. 3. History of alcohol abuse. Aware. He is not having any signs or symptoms of withdrawal or DT. 4. Status post gastric bypass surgery with good success. In general his nutrition is good at this moment. 5. Overall, this patient is doing fine. He looks stable. Pending rehab center placement for this patient. For now, we will continue with pain medication and physical therapy. cc: Dago Reyes MD
[2017-06-04] MEDS: DESYREL PO SCH (20:31)
[2017-06-04] MEDS: COLACE PO SCH (20:31)
[2017-06-05] MEDS: MORPHINE IV PRN (02:51)
[2017-06-05 05:29] LABS: MANUAL DIFF NEEDED? NO
[2017-06-05 05:40] LABS: BASO% 0.8 % (0.0-0.8); EOS# 0.26 X1000 (0.0-0.7); EOS% 3.6 % (0.0-10.0); HEMATOCRIT 26.4 % (42.0-52.0); HEMOGLOBIN 9.2 g/dL (14.0-18.0); LYMPH# 0.56 X1000 (1.2-3.4); LYMPH% 7.7 % (20.5-51.1); MCH 32.5 PG (27-31); MCHC 34.8 g/dL (33-37); MCV 93.3 FL (81-99); MPV 8.6 FL (7.4-10.4); NEUT% 76.9 % (42.2-75.2); PLT 385 X1000 (130-400); RBC 2.83 XMIL (4.7-6.1)
[2017-06-05] MEDS: OXY IR PO PRN ×3 (05:53→12:17)
[2017-06-05] MEDS: TYLENOL PO SCH ×2 (05:53→12:17)
[2017-06-05 06:02] LABS: AGAP 12; BUN 9 mg/dL (8-22); CHLORIDE 99 mmol/L (98-107); COSMO 275; POTASSIUM 3.7 mmol/L (3.5-5.1); SODIUM 138 mmol/L (136-145); TCO2 27 mmol/L (25-35)
[2017-06-05] MEDS: ICAR-C PO SCH (08:38)
[2017-06-05] MEDS: FERROUS SULFATE PO SCH (08:38)
[2017-06-05] MEDS: PRILOSEC PO SCH (08:38)
[2017-06-05] MEDS: NORVASC PO SCH (08:38)
[2017-06-05] MEDS: PERIDEX MT SCH (08:39)
--- NOTE | 2017-06-05 10:18 | PROGRESS NOTE ---
DATE: 06/05/2017 SUBJECTIVE: Jv Olvera is a 62-year-old male who is postop from a left trochanteric fixation nail placement. He has no complaints. He is awaiting rehab placement. OBJECTIVE: General: He is a well-developed, well-nourished male. He is alert, oriented, and cooperative with the exam. Extremities: His leg is neurovascularly intact. LABS: His hematocrit is 26.4%. He walked 70 feet yesterday. ASSESSMENT: Stable left hip after trochanteric fixation nail placement. PLAN: He can be discharged to rehab. Chevy can be removed in ten days. He can return to see me when he is discharged from rehab. cc: Tarun Castillo MD
[2017-06-05 12:16] VITALS: BP 146/91
--- NOTE | 2017-06-05 15:20 | DISCHARGE SUMMARY ---
ADMISSION DATE: 05/29/2017 DISCHARGE DATE: 06/05/2017 CONSULTATIONS: Dr. Castillo with orthopedics. PERTINENT PROCEDURES: Left long trochanteric fixation nail placement by Dr. Castillo. Initial hip and pelvis x-ray showed proximal right femur fracture. DISCHARGE DIAGNOSES: 1. Left subtrochanteric femur fracture status post left long trochanteric fixation nail placement by Dr. Castillo. Patient is being discharged to [facility]. His alvarez can be removed in 10 days. He can return to see Dr. Castillo after discharge from rehab. 2. Acute blood loss anemia, stable. 3. History of alcohol abuse. Aware. The patient has not shown any signs of symptoms of alcohol withdrawal. 4. Status post gastric bypass with good success. The patient has good general nutrition. HOSPITAL COURSE: Mr. Olvera is a 62-year-old male who carries a past medical history of gastric bypass, hypertension, and history of alcohol use, presented to the ED after he fell off a ladder, injuring his left hip. He was seen in the ED. He was diagnosed with a femur fracture. Orthopedics was consulted. He had complaints of left hip pain and inability to ambulate. His x- ray did show a left subtrochanteric femur fracture. He underwent a left long trochanteric fixation nail placement by Dr. Castillo. Postop day 1 he was working with physical therapy. He had acute blood loss anemia where he was transfused with 2 units of blood. He has remained hemodynamically stable. Given his history of alcohol he was monitored closely for any alcohol withdrawal or DTs. Physical therapy was consulted for rehab placement. He chose [facility] but due to his insurance being out of [place] with [facility], there was a delay. However, he has been stable throughout his hospital stay and he is appropriate for discharge today. He has been approved and will be going to [facility]. VITAL SIGNS: Temperature is 97.9 degrees, heart rate 80, respirations 18, blood pressure 146/91, O2 is 95% on room air. DISCHARGE DIET: Regular. DISCHARGE MEDICATIONS: 1. Norvasc 5 mg p.o. daily. 2. Colace 200 mg p.o. at bedtime. 3. Ferrous sulfate 325 mg p.o. daily. 4. Icar C 1 each p.o. daily. 5. Lisinopril hydrochlorothiazide 20/25 mg tablet 1 tablet p.o. daily. 6. Milk of magnesia 30 mL p.o. daily p.r.n. 7. Prilosec 40 mg p.o. daily. 8. Oxy IR 5 mg p.o. q.3 hours p.r.n. 9. Desyrel 150 mg p.o. at bedtime. FOLLOWUP: Mr. Olvera is being discharged to [facility]. His alvarez can come out in 10 days. He can return to see Dr. Castillo after he is discharge from rehab. He can follow up with his PCP, Dr. Bolaños, after rehab. He can return to the ED for any worsening of symptoms. DISCHARGE TIME: 30 minutes. Dictated by DAYNA Sanders for Dago Reyes MD cc: MD Adam Castillo,
--- NOTE | 2017-06-06 08:27 | DISCHARGE SUMMARY ---
ADMISSION DATE: 05/29/2017 DISCHARGE DATE: 06/05/2017 ADDENDUM: The patient is seen and examined by me [id number]. All the lab work and vital signs were reviewed. On physical exam, I did not see any changes compared with yesterday. He has a left subtrochanteric femur fracture, status post left trochanteric femoral nailing. He is doing well. Physical therapy has been on board. He will be discharged today to a rehab center, [facility]. Vital signs are stable. He has been working with physical therapy. I do not see any redness or signs of infection at the level of the wounds. Orthopedic surgery has been following this patient closely. He needs to follow with orthopedic surgery in 1 or 2 weeks and he needs to remove the alvarez in about 10 days. For more information, please see the complete discharge summary. I agree with the assessment and plan. cc: Dago Reyes MD
== END 2017-06-05 15:13 ==
LOC: ED 16:28 → SUATTDRO 19:45 → 4N 19:45
PROVIDERS: ATTEND Internal Medicine

== ENCOUNTER 2018-09-21 04:27 | Inpatient (IN) ==
[2018-09-21] MEDS ORDERED: NS 1,000 ML IV ONE ×3 (04:49→07:25)
[2018-09-21] MEDS ORDERED: NS 1,000 ML ONE (04:51)
--- NOTE | 2018-09-21 05:29 | PROVIDER DOCUMENTATION ---
HPI-General Adult - General Chief Complaint: Weakness Stated Complaint: HIATAL HERNIA, BLACK EMESIS Time Seen by Provider: 09/21/18 04:57 Source: patient, old records Allergies/Adverse Reactions: Patient Allergies Allergy/AdvReac Type Severity Reaction Status Date / Time No Known Allergies Allergy Verified 12/14/17 16:12 Home Medications: Home Medication List Medication Instructions Recorded Confirmed Last Taken Type Omeprazole 40 mg PO DAILY 05/31/17 05/31/17 Unknown History Docusate Sodium [Colace] 200 mg PO HS capsule 06/05/17 Unknown Rx Ferrous Sulfate 325 mg PO DAILY@0800 tablet 06/05/17 Unknown Rx Iron Carbonyl/Ascorbic Acid 1 each PO DAILY tablet 06/05/17 Unknown Rx [Icar-C] Gabapentin 300 mg PO TID 01/03/18 01/03/18 12/12/17 20:00 History 300 mg Acetaminophen [Tylenol] [address] Q6H PRN PRN supp 01/22/18 Unknown Rx Acetylcysteine 20% [Mucomyst 20%] 3 ml INH RTBID vial 01/22/18 Unknown Rx Albuterol 2.5MG/Ipratrop 0.5MG 3 ml INH Q4H PRN PRN neb 01/22/18 Unknown Rx [Duoneb (A & A)] Bisacodyl [Dulcolax] [address] QHS supp 01/22/18 Unknown Rx Diltiazem [Cardizem] 30 mg NG Q6HR tablet 01/22/18 Unknown Rx Enoxaparin [Lovenox] 40 mg SUBQ Q24H syringe 01/22/18 Unknown Rx Metoclopramide [Reglan] 5 mg IV Q6H vial 01/22/18 Unknown Rx Pantoprazole [Protonix] 40 mg IV DAILY vial 01/22/18 Unknown Rx - History of Present Illness -Gen Adult Nature of Presenting Problems: 63 yo WM presents to the ER with severe hypotension, vomiting of black emesis of 2 days duration. He did undergo gastric by pass about 15 years ago, lost about 100 pounds and seemed to be doing well until he was hospitalized last December with a bowel obstruction and severe respiratory failure. He did have a trach and ultimately was discharged to an LTAC. Over the next few months he he was weaned off the vent and the trach was removed. Review of Systems - Adult - REVIEW OF SYSTEMS - ADULT ROS:: limited per condition Constitutional: reports: see HPI, fatique, weight loss Eyes: reports: no symptoms reported Ears, Nose, Mouth & Throat: reports: no symptoms reported Cardiovascular: reports: see HPI, syncope. denies: chest pain, edema Respiratory: reports: see HPI, dyspnea on exertion, shortness of breath, wheezing Gastrointestinal: reports: see HPI, hematemesis, poor appetite Genitourinary: reports: no symptoms reported Musculoskeletal: reports: no symptoms reported Integumentary: reports: no symptoms reported Neurological: reports: no symptoms reported Psychiatric: reports: no symptoms reported Endocrine: reports: no symptoms reported Hematologic/Lymphatic: reports: no symptoms reported Allergic/Immunologic: reports: no symptoms reported Past History - Adult - PAST MEDICAL HISTORY-ADULT Review of Records: reports: Old Records Reviewed, Nursing Assessment Review, Medications Reviewed Major Childhood Illnesses: reports: denies history Cardiovascular: reports: HTN Respiratory: reports: sleep apnea Gastrointestinal: reports: GERD Obstetrical/Gynecological: reports: denies history Genitourinary: reports: denies history Musculoskeletal: reports: denies history Neurological: reports: denies history Endocrine/Immune: reports: denies history Other Conditions: reports: denies history - PRIOR SURGERIES/PROCEDURES Surgical/Procedure History: reports: joint replacement, gastric bypass, other ( penile implant x 2) - IMMUNIZATION STATUS Childhood Immunizations: See Nurse Assessment Flu Vaccine: See Nurse Assessment - FAMILY HISTORY Family History: reviewed, not pertinent Physical Exam-General - PHYSICAL EXAM-ADULT Initial Vital Signs Reviewed: Yes - CONSTITUTIONAL General Appearance: alert, severe distress, cachetic - EYES Eyes: PERRL/EOMI, pink conjunctivae, sunken eyes - HEAD, EARS, NOSE, MOUTH & THROAT HENMT: normocephalic/atraumatic, normal ENT inspection, dental decay - NECK Neck: supple, normal inspection - RESPIRATORY Respiratory: chest non-tender, lungs clear, normal breath sounds. negative: no accessory muscle use, respiratory distress - CARDIOVASCULAR Cardiovascular: normal peripheral pulses, regular rate, rhythm, no edema - GASTROINTESTINAL (ABDOMEN) Abdominal Exam: normal bowel sounds, non tender, soft, no organomegaly, hernia ( huge incisional hernia - midline) - LYMPHATIC Lymphatic: no adenopathy - MUSCULOSKELETAL Back Exam: normal inspection, no CVA tenderness, no vertebral tenderness Extremity: normal range of motion, non-tender. negative: normal gait - SKIN Integumentary: normal color, cyanosis, mottled - NEUROLOGIC Neurologic: grossly normal, no motor/sensory deficits - PSYCHIATRIC Psych/Mental Status: normal mood/affect, normal thought content, normal thought process, oriented x 3 Progress - PLAN OF CARE/RESULTS Progress/Plan/Lab Results: Vital Signs - 8 hr 09/21/18 04:37 Temperature 97.6 F Pulse Rate 145 H Respiratory Rate 20 Blood Pressure 69/45 O2 Sat by Pulse Oximetry 88 L Orders Category Date Time Status CHEST-PORTABLE [RAD] Stat Exams 09/21/18 05:06 Ordered ABG [RESP] Routine Lab 09/21/18 05:04 Ordered AMYLASE [CHEM] Stat Lab 09/21/18 05:19 Ordered BLOOD CULTURE [BLDCUL] Stat Lab 09/21/18 05:04 Uncollected CBC WITH ELECTRONIC DIFF [HEME] Stat Lab 09/21/18 05:19 Ordered COMPREHENSIVE METABOLIC PANEL [CHEM] Stat Lab 09/21/18 05:19 Ordered MAGNESIUM [CHEM] Stat Lab 09/21/18 05:19 Ordered PROTIME WITH INR [COAG] Stat Lab 09/21/18 05:19 Ordered TROPONIN T Stat Lab 09/21/18 05:19 Ordered UA NIMS W/REFLEX CULT [URINALYSIS] Stat Lab 09/21/18 05:05 Uncollected 0.9% Sodium Chloride Inj [Ns] 1,000 ml Med 09/21/18 04:51 Discontinued .ROUTE As Directed 0.9% Sodium Chloride Inj [Ns] 1,000 ml Med 09/21/18 04:49 Active IV 999 mls/hr EKG [EKG] Stat Ther 09/21/18 04:40 Ordered Result Diagrams: 09/21/18 04:44 09/21/18 04:44 - REASSESSMENT Reassessment #1 Time Reassessed: 06:50 Status: improving (He is now perfusing better and BP is 83/57, HR 116 . He is quite alert but not making any urine,) Reassessment #2 Time Reassessed: 07:55 (Seen and examined by me at shift change. Case discussed with Dr. Dodd. Patient has cough, abdominal pain, coffee ground emesis at home x 2. Recent admission. Labs and vitals are compatible with sepsis. Will given abx for HCAP Pne and plan to admit once labs resulted. ) Status: improving Reassessment Comment: Will give 3rd liter of NS and start levophed if BP not improved. - XRAY 1 XRAY Study: Chest Impression: Abnormal (spiculated lesion BIANCA not greatly changed from December of last year), See EMR Report (EXAM: CHEST-PORTABLE INDICATION: hypotension (60/ 40) TECHNIQUE: One view COMPARISON: 01/22/2018 FINDINGS: During the interval, a tracheostomy tube has been removed. There are infiltrates throughout the left lung that are similar to the previous study. Infiltrate at the right lung base is not as severe as the previous study. No definite pleural fluid collection or pneumothorax is identified. Cardiac silhouette is unremarkable. IMPRESSION: Bilateral infiltrates, worse on the left. Electronically signed by Darryn Casarez 09/21/2018 7:57 AM 09/21/18 0757 Interpreting Physician: Darryn Casarez MD Dictated Date/Time: 09/21/18 0755 cc: Maximino Dodd MD; Adam Bolaños DO) - CT/MRI 1 CT Study: Abdomen Impression: Abnormal (EXAM: CT ABDOMEN/PELVIS W/O CONTRAST INDICATION: vomiting and hypotension TECHNIQUE: This exam was performed using automated exposure control, adjustment of mA or kV according to patient size, and/or use of iterative reconstruction technique. COMPARISON: 01/13/2018 FINDINGS: There are chronic infiltrates at both lung bases. They have probably marginally improved since the previous study. There are several small stable cystic appearing foci involving the liver. The gallbladder, spleen, pancreas, and adrenal glands are unremarkable. There are several stable renal cysts including a hyperdense cyst at the lower pole of the right kidney that probably contains blood products. The kidneys are grossly unremarkable, otherwise. The urinary bladder is nondistended. There is a large amount of dense retained barium in the colon and rectum from a recent small bowel follow-through study. There are multiple distended loops of small bowel containing air-fluid levels. The distal small bowel is collapsed. This indicates a high-grade small bowel obstruction. The exact transition point is not clearly identified, in part due to the beam hardening artifact from the dense barium in the adjacent colon. There is a supraumbilical ventral abdominal wall hernia that has developed during the interval. It does contain a loop of small bowel. However, the hernia has a wide mouth, and this does not appear to be the point of obstruction. There has been a prior gastric bypass. There is a small amount of fluid in the distal esophagus indicating reflux. There are degenerative changes throughout the spine. IMPRESSION: 1.Findings consistent with a high-grade small bowel obstruction. 2.Chronic infiltrates at both lung bases that may have improved slightly since the previous study. 3.Interval development of a supraumbilical ventral abdominal wall hernia. Please see above discussion. 4.Other external/ nonacute findings detailed above. Electronically signed by Darryn Casarez 2018 8:42 AM 09/21/18 0842 Interpreting Physician: Darryn Casarez MD Dictated Date/Time: 09/21/18 0830 cc: Maximino Dodd MD; Adam Bolaños DO), See EMR Report - CONSULTS/PCP/HOSPITALIST Notification #1 *Consult/PCP/Hospitalist*: DAYNA Shah Time Discussed: 09:05 (admit to [facility]) Consult Disposition: Will see in ED #2 Consult: Alee, surgeon, page for consult 0900 Time Discussed: 09:07 (Dr. Bates returned call) Consult Disposition: Will see in ED (or on floor) - CHANGE OF SHIFT REPORT (ED Provider) Report Given and Care Transferred to:: Dr Mike Items Pending: CT/MRI Results (Needs ICU admission - Dx is uncertain) Departure - Departure Date of Disposition Decision: 09/21/18 Time of Disposition Decision: 09:07 DIAGNOSIS: Small bowel obstruction due to postoperative adhesions, Septic shock Sepsis Qualifiers: Sepsis type: sepsis due to unspecified organism Qualified Code(s): A41.9 - Sepsis, unspecified organism Bilateral pneumonia Qualifiers: Pneumonia type: due to unspecified organism Lung location: unspecified part of lung Qualified Code(s): J18.9 - Pneumonia, unspecified organism Disposition: ADMITTED INPATIENT 09 Certified Medical Emergency: Emergent Condition: Serious Referrals and Follow-Ups: Adam Bolaños DO [Primary Care Provider] - - Critical Care Note This patient required my direct & personal management of CC.: Yes Total Time (mins): 45 Critical Care Statement: This patient required my direct personal management to treat or rule out processes, the absence of which, could potentiallly result in sudden, clinically significant life or limb threatening deterioration. Attestation - Physician/ EDDIE Attestation Patient care was provided by Advanced Practice Provider:: No The physician spent face to face time with patient:: Yes Advanced Practice Provider documentation review:: Supervising physician onsite and consulted in the evaluation and care of this patient. The physician did have a face to face encounter with the patient.
[2018-09-21 05:30] LABS: BASO# 0.03 X1000 (0.0-0.2); BASO% 0.2 % (0.0-0.8); EOS# 0.01 X1000 (0.0-0.7); EOS% 0.1 % (0.0-10.0); HEMATOCRIT 45.3 % (42.0-52.0); HEMOGLOBIN 15.7 g/dL (14.0-18.0); IMM GRAN# 0.05 X1000 (0.0-0.04); IMM GRAN% 0.4 % (0.0-0.5); LYMPH# 0.61 X1000 (1.2-3.4); LYMPH% 4.6 % (20.5-51.1); MCH 32.6 PG (27-31); MCHC 34.7 g/dL (33-37); MCV 94.2 FL (81-99); MONO# 1.22 X1000 (0.11-0.59); MONO% 9.1 % (1.7-9.3); MPV 10.2 FL (7.4-10.4); NEUT# 11.43 X1000 (1.4-6.5); NEUT% 85.6 % (42.2-75.2); PLT 437 X1000 (130-400); RBC 4.81 XMIL (4.7-6.1); RDW 12.3 % (11.5-14.5); WBC 13.35 X1000 (4.8-10.8)
[2018-09-21 05:36] LABS: INR 0.94; PROTIME 13.4 Seconds (11.0-16.0)
[2018-09-21 05:46] LABS: ALLEN TEST YES; BE 4.9 mmoll (-3.0-3.0); BLOOD TYPE ARTERIAL; HCO3-(ACT) 28.5 mmoll (20.0-26.0); METHB 0.8 % (0.0-1.5); O2(CT) 17.1 mL/dL (15.0-23.0); PCO2(98.6) 41 mmHg (35-45); PO2(98.6) 58 mmHg (60-100); SAMPLE BLOOD; SAO2 91.9 % (95.0-100.0); THB 13.7 g/dL (11.5-17.4); pH(98.6) 7.46 (7.35-7.45)
[2018-09-21 05:49] LABS: MODALITY CANNULA
[2018-09-21 05:55] LABS: ALB/GLOB RATIO 1.6; ALBUMIN 4.4 g/dL (3.5-5.0); CALCIUM 9.3 mg/dL (8.8-10.2); CREATININE 2.5 mg/dL (0.7-1.2); MAGNESIUM 2.2 mg/dL (1.5-2.7); POTASSIUM 3.5 mmol/L (3.5-5.1); TOTAL BILIRUBIN 2.17 mg/dL (0.20-1.00); TOTAL PROTEIN 7.2 g/dL (6.3-8.3)
[2018-09-21 07:13] LABS: URINE SOURCE CLEAN CATCH
[2018-09-21] MEDS ORDERED: VANCOMYCIN 1 GM/NS 1 GM/250 ML IVPB IV ONE (07:26)
[2018-09-21] MEDS ORDERED: ZOSYN 3.375 GM in NS 50 ML IV ONE (07:26)
[2018-09-21] MEDS ORDERED: PROTONIX 80 MG in NS 80 ML IV ONE (07:26)
[2018-09-21] MEDS ORDERED: LEVAQUIN 750 MG/D5W 750 MG/150 ML IVPB IV ONE (07:26)
[2018-09-21 07:27] LABS: BILIRUBIN URINE SMALL (NEGATIVE); BLOOD URINE NEGATIVE (NEGATIVE); COLOR YELLOW; GLUCOSE URINE NEGATIVE (NEGATIVE); KETONE URINE TRACE mg/dL (NEGATIVE); LEUKOCYTES URINE NEGATIVE (NEGATIVE); NITRITE URINE NEGATIVE (NEGATIVE); PH URINE 5.5; PROTEIN URINE 100 mg/dL (NEGATIVE); SP GRAVITY URINE 1.022; TURBIDITY URINE HAZY (CLEAR); UR EPITHELIAL CELLS <10 /HPF (<10); URINE BACTERIA NEGATIVE /HPF; URINE RBC <10 /HPF (<10); URINE WBC <10 /HPF (<10); UROBILINOGEN URINE 2 mg/dL (NORMAL)
[2018-09-21 07:31] LABS: URINE CASTS NONE SEEN
[2018-09-21] MEDS ORDERED: LEVOPHED 8 MG in D5 1/2 NS 250 ML IV SCH (07:45)
[2018-09-21] MEDS ORDERED: NS 50 ML ONE (07:52)
--- NOTE | 2018-09-21 08:00 | Diag Imaging Result Doc PS360 ---
EXAM: CHEST-PORTABLE INDICATION: hypotension (60/40) TECHNIQUE: One view COMPARISON: 01/22/2018 FINDINGS: During the interval, a tracheostomy tube has been removed. There are infiltrates throughout the left lung that are similar to the previous study. Infiltrate at the right lung base is not as severe as the previous study. No definite pleural fluid collection or pneumothorax is identified. Cardiac silhouette is unremarkable. IMPRESSION: Bilateral infiltrates, worse on the left. Electronically signed by Darryn Casarez 09/21/2018 7:57 AM
[2018-09-21] MEDS: PROTONIX 80 MG in NS 80 ML IV SCH ×2 (08:45→17:29)
--- NOTE | 2018-09-21 08:45 | Diag Imaging Result Doc PS360 ---
EXAM: CT ABDOMEN/PELVIS W/O CONTRAST INDICATION: vomiting and hypotension TECHNIQUE: This exam was performed using automated exposure control, adjustment of mA or kV according to patient size, and/or use of iterative reconstruction technique. COMPARISON: 01/13/2018 FINDINGS: There are chronic infiltrates at both lung bases. They have probably marginally improved since the previous study. There are several small stable cystic appearing foci involving the liver. The gallbladder, spleen, pancreas, and adrenal glands are unremarkable. There are several stable renal cysts including a hyperdense cyst at the lower pole of the right kidney that probably contains blood products. The kidneys are grossly unremarkable, otherwise. The urinary bladder is nondistended. There is a large amount of dense retained barium in the colon and rectum from a recent small bowel follow-through study. There are multiple distended loops of small bowel containing air-fluid levels. The distal small bowel is collapsed. This indicates a high-grade small bowel obstruction. The exact transition point is not clearly identified, in part due to the beam hardening artifact from the dense barium in the adjacent colon. There is a supraumbilical ventral abdominal wall hernia that has developed during the interval. It does contain a loop of small bowel. However, the hernia has a wide mouth, and this does not appear to be the point of obstruction. There has been a prior gastric bypass. There is a small amount of fluid in the distal esophagus indicating reflux. There are degenerative changes throughout the spine. IMPRESSION: 1.Findings consistent with a high-grade small bowel obstruction. 2.Chronic infiltrates at both lung bases that may have improved slightly since the previous study. 3.Interval development of a supraumbilical ventral abdominal wall hernia. Please see above discussion. 4.Other external/nonacute findings detailed above. Electronically signed by Darryn Casarez 09/21/2018 8:42 AM
[2018-09-21] MEDS: NS 1,000 ML IV SCH ×2 (09:45→17:29)
[2018-09-21] MEDS: ZOFRAN IV PRN (09:50)
--- NOTE | 2018-09-21 10:40 | HISTORY AND PHYSICAL ---
HISTORY OF PRESENT ILLNESS: Ms. Olvera says he has felt bad now for really several months, 2 to 3 months. He has had trouble with his food. He says he can swallow it but it does not seem to pass and he is uncomfortable for several hours. It seemed to get better but in this last couple of weeks, it has been worse. Last, he has not had a bowel movement since Saturday. Today is Saturday and he is very uncomfortable. He has been throwing up for the last 3 or 4 days with coffee- grounds dark emesis. He thinks he has lost about 10 pounds in the last week. He was scheduled to have surgery, I think, to fix a ventral hernia per Dr. Vickers in October. PAST MEDICAL HISTORY: 1. He used to have a history of morbid obesity. 2. Status post CABG surgery. 3. Hypertension. 4. Possible COPD. 5. Gastroesophageal reflux disease. 6. Bilateral lower extremity neuropathy. PAST SURGICAL HISTORY: Gastric bypass, left hip arthroplasty, and left tibia-fibula repair. He has had a tracheostomy, I think, from his last hospitalization. PROLONGED HOSPITALIZATION: I think he was here 6 weeks with respiratory failure, prolonged hospitalization. He denies any fever or chills. He denies any specific abdominal pain except for when after he eats. He has some discomfort in the mid abdomen, in the right lower quadrant. No gross hematochezia. No gross hematuria or dysuria. No trouble with voiding. SOCIAL HISTORY: He quit smoking a couple years ago. He was smoking a pack per day for over 40 years. He drank occasional alcohol. His alcohol preference was vodka. I did not question on how much he is drinking at this time. FAMILY HISTORY: I think his grandmother of cancer and his father of cancer. There is history of coronary artery disease in the family as well. ALLERGIES: No known drug allergies. REVIEW OF SYSTEMS: Constitutional: He did not report any fever or chills. He thinks he has lost about 10 pounds in the last week. He is status post gastric bypass surgery. He had a history of former morbid obesity. HEENT: No change in visual or hearing acuity reported. Neck: No neck pain or adenopathy reported. No issues with thyroid. Respiratory: No increased work of breathing or dyspnea. Cardiovascular: No chest pain or tachy palpitations. He has a history of status post CABG. GI and : Bowel obstruction. Unable to have a bowel movement for 4 or 5 days. No gross hematochezia. He has had nausea with vomiting and dark coffee-grounds emesis. Endocrinologic/Hematologic: No significant history. Musculoskeletal/Neurologic: No specific complaints. PHYSICAL EXAMINATION: VITAL SIGNS: In the emergency room, temperature 97.6 degrees, pulse 111, respirations 27, blood pressure 83/57. HEENT: Pupils were equal. Conjunctivae pink. Sclerae were clear. NECK: No distended neck veins. NEUROLOGIC: He was alert and oriented x3. Pleasant. Gave a good history. LYMPHATICS: No cervical or supraclavicular adenopathy. No femoral adenopathy appreciated. CARDIOVASCULAR: Regular rhythm and rate without murmur or S3. PMI nondisplaced. Carotid, radial, and femoral pulses appear to be equal, 2+ and symmetrical. ABDOMEN: He has a midline scar but there is no point tenderness. I did not appreciate any organomegaly. No abdominal distention or sign of ascites. EXTREMITIES: Without edema. LABORATORY DATA: White count 13,350, hematocrit 45, platelet count 437,000. Sodium 138, potassium 3.5, chloride 89, BUN 49, creatinine 2.5, blood sugar 160, calcium 9.3. AST was 11, ALT was 8, alkaline phosphatase 92, amylase 43. Prothrombin time is 13.4. Urinalysis unremarkable. Blood gas, pH was 7.46, pCO2 was 41, PO2 was 58, and 89% saturation. That is on [address] findings consistent with high-grade small bowel obstruction. Chronic infiltrates in both lung bases that may have improved slightly since previous study. Interval development of a supraumbilical ventral abdominal wall hernia. Chest x-ray, bilateral infiltrates, worse on the left. On CT, these looked chronic in comparison of old CTs. ASSESSMENT AND PLAN: 1. Small-bowel obstruction, ventral abdominal wall hernia. We will consult surgery. We will try and hydrate him. Intravenous fluids, normal saline, we will run that at 125 an hour. Looking back, I think he has had an echocardiogram done on 12/15 but difficult interpretation. Left ventricle appeared to have a left ventricular ejection fraction of 60%. No regional wall motion abnormalities. I do not see any significant valvular abnormalities. Aortic valve gradient was 10 to 15 mmHg so he should be able to tolerate fluids well. 2. He has what appears to be chronic bibasilar infiltrates. We will go ahead and cover him empirically to cover pneumococcal and gram-negative organisms. We will use Zosyn at a renal dose. 3. He has a creatinine of 2.5. Looking back at his creatinine before, his creatinine on 01/22/2018 was 0.6 so I think this is acute renal, suspect it is prerenal, so it should correct with fluids. We will check his urine for spot sodium, osmolality, and creatinine. We will check his T4, TSH, and cortisol level in the morning, morning cortisol level. 4. He has a history of coronary artery bypass graft. I do not see any sign of active cardiac ischemia. 5. History of hypertension. 6. Underlying chronic obstructive pulmonary disease suspected and chronic basilar scarring. 7. Gastroesophageal reflux disease. 8. Status post gastric bypass. 9. Peripheral neuropathy. Aware. REVIEW OF HIS CURRENT MEDICATIONS: He is on Cardizem 30 mg q.6. He is taking Colace 200 mg at bedtime and it looks like he was on Lovenox once a day at 40 mg subcutaneous, ferrous sulfate 325 mg a day, gabapentin 300 mg t.i.d., Icar C one a day, Reglan 5 mg. They have that IV. I do not believe he is taking that. Omeprazole 40 mg a day, Protonix 40 mg IV a day was now listed on there as well. We will put him on some DuoNebs. He is not having any bronchospasm or trouble with air movement at this time. cc: Toan Arias MD
[2018-09-21] MEDS: ATROVENT NEB INH SCH ×4 (10:41→23:24)
[2018-09-21] MEDS: XOPENEX NEB INH SCH ×4 (10:41→23:25)
[2018-09-21 11:04] LABS: IRON SATURATION 8 %; TIBC 120 ug/dL; TOTAL IRON 10 ug/dL (53-167); UNBOUND IRON 110 ug/dL (112-346)
[2018-09-21 11:31] LABS: FERRITIN 608 ng/mL (30-400)
[2018-09-21 11:35] LABS: HEMATOCRIT 40.3 % (42.0-52.0); HEMOGLOBIN 13.7 g/dL (14.0-18.0)
[2018-09-21] MEDS: HUMULIN R SUBQ SCH ×3 (12:00→22:03)
[2018-09-21 13:01] LABS: UR CREAT RANDOM 178.8 mg/dL (14-26)
--- NOTE | 2018-09-21 13:46 | Diag Imaging Result Doc PS360 ---
EXAM: CHEST/ABD TUBE PLACEMENT INDICATION: NGT placement TECHNIQUE: One view COMPARISON: 09/21/2018 FINDINGS: There is a recently placed NG tube. The tip projects over the upper abdomen below the diaphragm and assumed to be in the lumen of the stomach in expected position. Limited views of the lung parenchyma are essentially stable as compared to the earlier study performed today. IMPRESSION: Interval placement of NG tube in expected position as described. Electronically signed by Darryn Casarez 09/21/2018 1:44 PM
[2018-09-21] MEDS: ZOSYN 2.25 GM in NS 50 ML IV SCH (15:52)
[2018-09-21] MEDS: MORPHINE IV PRN (15:55)
[2018-09-21 17:21] LABS: HEMATOCRIT 39.4 % (42.0-52.0); HEMOGLOBIN 13.7 g/dL (14.0-18.0)
[2018-09-21] MEDS ORDERED: BLISTEX MEDICATED BERRY LIP BALM TOP PRN (17:31)
[2018-09-21] MEDS: PULMICORT INH SCH (19:30)
[2018-09-21] MEDS: ZYVOX 600 MG/D5W 600 MG/300 ML IVPB IV SCH (21:30)
[2018-09-21] MEDS: CARAFATE LIQUID PO SCH (21:30)
[2018-09-21] MEDS: DULCOLAX PR SCH (21:30)
[2018-09-21 23:59] LABS: HEMATOCRIT 34.8 % (42.0-52.0)
[2018-09-22] MEDS: ZOSYN 2.25 GM in NS 50 ML IV SCH ×3 (01:23→15:19)
[2018-09-22] MEDS: NS 1,000 ML IV SCH ×4 (01:23→17:40)
[2018-09-22] MEDS: CARAFATE LIQUID PO SCH ×4 (01:24→21:29)
[2018-09-22] MEDS: PROTONIX 80 MG in NS 80 ML IV SCH ×2 (02:44→12:37)
[2018-09-22] MEDS: XOPENEX NEB INH SCH ×5 (03:03→20:26)
[2018-09-22] MEDS: ATROVENT NEB INH SCH ×5 (03:03→20:26)
--- NOTE | 2018-09-22 03:09 | GASTROENTEROLOGY CONSULTATION ---
DATE: 09/21/2018 REQUESTING PHYSICIAN: Dr. Arias. PRIMARY CARE DOCTOR: Dr. Adam Bolaños. REASON FOR CONSULTATION: Coffee-grounds emesis, small-bowel obstruction. HISTORY OF PRESENT ILLNESS: Mr. Olvera is a 63-year-old male who was admitted on 09/21/2018 for abdominal discomfort, nausea, and vomiting coffee-grounds for the last 3 to 4 days. He has had constipation. His last bowel movement was more than 1 week ago. He thinks he has lost about 10 pounds in the last 1 week. He has a history of gastric bypass done 15 years ago at [facility]. He had admission for small-bowel obstruction in 2018. At that time, he had exploratory laparotomy with lysis of adhesions and treatment of possible internal hernia by Dr. Butch Vickers on 01/14/2018. During the same hospitalization, the patient had respiratory failure requiring a tracheostomy and tracheostomy exchange. Prior to that, he had upper GI bleeding on 12/17/2017 where he had an EGD which showed evidence of a Larisa-Aguilar tear with clot and some fresh oozing, and this was treated with clipping. The last few days prior to admission, he had seen Dr. Vickers who had done a GI series with barium swallow which showed: 1. Gastroesophageal reflux. 2. Small paraesophageal hernia. 3. Prior gastric bypass and small gastric remnant. No filling defect or ulceration noted in the gastric remnant. The proximal small bowel was essentially unremarkable. This admission, he had a CT scan which showed: 1. Evidence of a large amount of dense retained barium in the colon and rectum from the recent small bowel follow through. 2. Multiple distended loops of small intestine containing air-fluid levels. The distal small bowel is collapsed. This indicates a high-grade small bowel obstruction. The transition point is not clearly identified. There was evidence of supraumbilical ventral abdominal hernia that has develop during the interval. It does contain a loop of small bowel. However, the hernia is wide-mouthed and does not appear to be the point of obstruction. There has been prior gastric bypass. There is small amount of fluid in the distal esophagus indicating reflux. There are DJD changes throughout the spine. Gastroenterology was consulted for further management. PAST MEDICAL HISTORY: 1. Obesity, status post gastric bypass 15 years ago at [facility] by Dr. Banks 2. Coronary artery disease. 3. Hypertension. 4. Chronic smoker, quit 2 years ago. 5. COPD. 6. Reflux disease. 7. Larisa-Aguilar tear. 8. Small bowel obstruction because of adhesions. 9. Bilateral lower extremity neuropathy. PAST SURGICAL HISTORY: 1. EGD. 2. Gastric bypass surgery. 3. Tracheostomy and tracheostomy exchange. 4. Exploratory laparotomy. 5. Lysis of adhesions. 6. Left hip arthroplasty. 7. Left tibia-fibula repair. ALLERGIES: No known drug allergies. SOCIAL HISTORY: He quit smoking 2 years ago. Prior to that, he had a 30 pack year history of smoking. He drinks 2 alcoholic beverages every day. He quit about a few days ago. He likes to drink vodka. He also likes to drink Mountain Dew but he has quit a few days ago. FAMILY HISTORY: Grandmother of cancer. Father of cancer. History of coronary artery disease in the family. MEDICATIONS IN THE HOSPITAL: Include budesonide, Humulin R, ipratropium, Xopenex, norepinephrine, normal saline at 100 mL per hour, Zofran, Protonix drip, Zosyn, linezolid. MEDICATIONS AT HOME: Include omeprazole, ferrous sulfate, stool softeners, Tylenol, Protonix, Mucomyst. The final list is being compiled. REVIEW OF SYSTEMS: Denies any fevers, rigors, chills, chest pain, shortness of breath, dyspnea. Denies any vomiting blood. Does have cough with emesis. He had an NG tube placed in the ER which is draining approximately 200 mL of bilious and some dark aspirate. Denies any bright red blood in the stools. He has had constipation for the last 1 week. Does have history of neuropathy in the lower extremities. Denies any genitourinary complaints. PHYSICAL EXAMINATION: Vital Signs: Temperature of 98.2 degrees, pulse rate of 99, respiratory rate 24, blood pressure 118/71, saturating 92% on room air. Body weight of 215 pounds. BMI 28.4 kg/m2. General Appearance: Moderately-built, moderately-nourished, lying in bed, in no acute distress. HEENT: No pallor. No icterus. NG tube in place. Pupils equal, reactive to light. Neck: Supple. Abdomen: Abdominal wall hernia noted at the site of previous incision. Protuberant abdomen. No guarding or rebound. Extremities: No cyanosis, clubbing, and edema. Neurologic: He was alert, awake, oriented x3. LABS: Hemoglobin and hematocrit are 13.7 and 40.3, white count 13.3, platelet count of 437,000, MCV of 94.2. INR 0.94, PTT of 13.4. ABG showing pH of 7.46, pCO2 of 41, PO2 of 58. This is on 36% FiO2. Sodium 138, potassium 3.5, chloride of 89, bicarb of 28, anion gap of 21, BUN of 49, creatinine 2.5, glucose of 160, calcium is 9.3, hemoglobin A1c is 5. Iron percentage of 8, iron level of 10 - suggesting iron deficiency, ferritin 110. Total bilirubin is 2.17 , AST 11, ALT 8, alkaline phosphatase 72, total protein is 7.4, albumin of 4.4, amylase of 43, and lactate of 1.9, B12 of 373. Urinalysis has protein positive, trace ketones, small amount of bilirubin, and occult blood is negative. Blood cultures x2 have been drawn and they are currently pending. CT scan of the abdomen and pelvis as described in the HPI. Chest x-ray showed bilateral infiltrates, worse on the left. IMPRESSION AND PLAN: 1. Small-bowel obstruction. 2. Ventral abdominal hernia. 3. Coffee-grounds emesis. 4. Question of pneumonia and chest x-ray showing bilateral infiltrates. 5. History of gastric bypass. 6. History of reflux disease. 7. Constipation. RECOMMENDATIONS: 1. We will keep the patient's NG tube to intermittent suction. We will give him IV fluids, give him a Protonix drip. We will give him soap suds enemas for constipation and evaluate the response. We will watch serial hematocrit and transfuse as needed. Surgery team has been consulted for high-grade obstruction. The patient is known to Dr. Butch Vickers. 2. We will follow the patient closely. If the patient continues to have coffee- grounds emesis, then we may have to do EGD, the timing of which we will decide based on the clinical course. 3. The above plan of care was discussed with the patient and family at bedside. All questions were answered. Please call us with any further questions. I also recommend the patient to quit alcohol and excessive use of Mountain Dews and sodas. The above plan was discussed with the family and the primary care team, and all questions were answered. cc: MD Toan Rivers MD Thomas E. Lockard, DO MTDD
[2018-09-22 05:01] LABS: INR 1.13; PROTIME 15.4 Seconds (11.0-16.0)
[2018-09-22 05:02] LABS: PTT 44.6 Seconds (22.3-41.8)
[2018-09-22 05:16] LABS: ALLEN TEST YES; BE 3.6 mmoll (-3.0-3.0); BLOOD TYPE ARTERIAL; HCO3-(ACT) 27.6 mmoll (20.0-26.0); METHB 0.7 % (0.0-1.5); O2(CT) 19.6 mL/dL (15.0-23.0); O2HB 94.2 % (95.0-99.0); PCO2(98.6) 43 mmHg (35-45); PO2(98.6) 79 mmHg (60-100); SAMPLE BLOOD; SAO2 96.4 % (95.0-100.0); THB 14.8 g/dL (11.5-17.4); pH(98.6) 7.43 (7.35-7.45)
[2018-09-22 05:19] LABS: MODALITY CANNULA
[2018-09-22 05:20] LABS: BASO# 0.04 X1000 (0.0-0.2); BASO% 0.4 % (0.0-0.8); EOS# 0.05 X1000 (0.0-0.7); EOS% 0.5 % (0.0-10.0); HEMATOCRIT 35.2 % (42.0-52.0); HEMOGLOBIN 12.2 g/dL (14.0-18.0); IMM GRAN# 0.02 X1000 (0.0-0.04); IMM GRAN% 0.2 % (0.0-0.5); LYMPH% 5.9 % (20.5-51.1); MCH 33.1 PG (27-31); MCHC 34.7 g/dL (33-37); MCV 95.4 FL (81-99); MONO# 0.73 X1000 (0.11-0.59); MONO% 7.2 % (1.7-9.3); NEUT# 8.72 X1000 (1.4-6.5); NEUT% 85.8 % (42.2-75.2); PLT 330 X1000 (130-400); RBC 3.69 XMIL (4.7-6.1); RDW 12.1 % (11.5-14.5); WBC 10.16 X1000 (4.8-10.8)
[2018-09-22 05:39] LABS: AGAP 12; ALBUMIN 2.9 g/dL (3.5-5.0); ALKALINE PHOSPHATASE 70 U/L (32-122); BUN 40 mg/dL (8-22); CALCIUM 8.3 mg/dL (8.8-10.2); CHLORIDE 95 mmol/L (98-107); COSMO 278; ESTIMATED GFR > 60; GLUCOSE 128 mg/dL (70-104); GOT 11 U/L (10-34); GPT 6 U/L (10-44); MAGNESIUM 2.1 mg/dL (1.5-2.7); POTASSIUM 2.9 mmol/L (3.5-5.1); SODIUM 133 mmol/L (136-145); TCO2 26 mmol/L (25-35); TOTAL BILIRUBIN 1.03 mg/dL (0.20-1.00); TOTAL PROTEIN 5.7 g/dL (6.3-8.3)
[2018-09-22 05:40] LABS: FREE T4 1.59 ng/dL (0.93-1.70); TSH 0.64 uIUmL (0.27-4.20)
[2018-09-22] MEDS: HUMULIN R SUBQ SCH ×4 (06:31→22:12)
--- NOTE | 2018-09-22 07:18 | Diag Imaging Result Doc PS360 ---
EXAM: CHEST-PORTABLE 09/22/2018 HISTORY: pna TECHNIQUE: AP portable at 0508 COMMENT: There is an NG tube with its tip in the stomach. There are coarse opacities throughout the left upper lobe and to some extent in the lower lobes. Compared to 09/21/2018 this appears slightly worse. There has been improvement with regard to the right lung compared to 01/22/2018. IMPRESSION: Left upper lobe pneumonia. Electronically signed by Costa Rodriguez 09/22/2018 7:16 AM
[2018-09-22] MEDS: PULMICORT INH SCH ×2 (07:20→20:26)
--- NOTE | 2018-09-22 07:21 | EKG Report ---
Test Performed on : 09/21/2018 04:47:53 AM Test Reason : weakness Blood Pressure : / mmHG Vent. Rate : 129 BPM Atrial Rate : 129 BPM P-R Int : 128 ms QRS Dur : 084 ms QT Int : 320 ms P-R-T Axes : 011 057 008 degrees QTc Int : 468 ms Sinus tachycardia. Nonspecific ST abnormality Abnormal ECG When compared with ECG of 21-DEC-2017 15:28, Sinus rhythm. has replaced Atrial flutter. T wave inversion no longer evident in Lateral leads Unconfirmed Result
--- NOTE | 2018-09-22 08:05 | PROGRESS NOTE ---
DATE: 09/22/2018 SUBJECTIVE: Mr. Jv Olvera is a 63-year-old white male who was admitted with abdominal distention yesterday. He is in the ICU. He has had a history of gastric bypass. He had previous surgery, exploratory laparotomy with lysis of adhesions per Dr. Vickers in December 2017. He has a ventral hernia which Dr. Vickers has plans to repair. Overnight, he had a bowel movement and flatus and his abdomen is soft now without significant tenderness. He is hemodynamically stable. I will ask Dr. Vickers to see him. cc: Malka Bates MD
[2018-09-22] MEDS: ZYVOX 600 MG/D5W 600 MG/300 ML IVPB IV SCH ×2 (08:21→21:29)
[2018-09-22] MEDS: DULCOLAX PR SCH ×2 (08:22→21:29)
--- NOTE | 2018-09-22 08:41 | GENERAL SURGERY CONSULTATION ---
DATE: 09/22/2018 SUBJECTIVE: NG tube is in place. It has bilious output. No abdominal pain. He is unsure if he is having anything in the way of bowel function. He is overall pretty disgruntled with his current situation understandably . No fevers. OBJECTIVE: Vital Signs: Pulse 70, blood pressure 134/78. General: He is alert. NG tube is in place. Cardiovascular: Normal rate. Abdomen: Soft. There is a soft reducible midline hernia with no overlying skin changes. Integument: Warm and dry. Laboratory Data: White count is 10, hematocrit is 35. Creatinine is 1.0. ASSESSMENT AND PLAN: This is a 63-year-old gentleman with a recent prolonged intensive care unit stay. He has a history of a Michael-en-Y gastric bypass. He had an exploratory laparotomy with lysis of adhesions and he has unfortunately developed a ventral hernia but the hernia is not the source of obstruction. He did have a small-bowel follow-through last week from our office that showed passive contrast all the way to the colon. There is still some residual contrast. I agree with his bowel stimulation and nasogastric tube decompression. His abdominal examination is benign. I do not suspect that the source of his obstruction is his hernia. We will monitor him closely. cc: Facundo Vickers MD MTDD
[2018-09-22] MEDS ORDERED: POTASSIUM CHLORIDE 20 MEQ/SWI 20 MEQ/100 ML IVPB IV SCH (09:10)
[2018-09-22] MEDS ORDERED: PROTONIX IV SCH (09:15)
--- NOTE | 2018-09-22 09:37 | PROGRESS NOTE ---
DATE: 09/23/2018 SUBJECTIVE: Mr. Olvera has an NG tube in. He feels much better. Abdomen feels softer and less discomfort. OBJECTIVE: Vital signs: Temperature 97.4 degrees, pulse 70, respirations 18, blood pressure 135/78. Eyes: Pupils are equal and round. Lungs: Clear in all lung osei. Cardiovascular: Regular rhythm and rate without murmur or S3. Abdomen: Soft. Nondistended. I do not hear bowel sounds at this time in any of the abdominal quadrants. Extremities: No edema. URINE OUTPUT: 9800 mL. ASSESSMENT AND PLAN: 1. Recent prolonged intensive care unit today. 2. History of Michael-en-Y gastric bypass. 3. He has had an exploratory laparotomy with lysis of adhesions and unfortunately developed a ventral hernia, but the hernia is not source of obstruction. He does have small bowel. 4. He had a small bowel follow-through in Dr. Vickers's office last week which showed passive contrast all the way to the colon. There is still some residual contrast. So, I am going to try bowel stimulation and nasogastric tube decompression. No surgery planned at this time. 5. Ventral hernia which has been electively repaired. 6. Coffee-ground emesis. Upper GI irritation suspected. We may have to do an EGD, the timing of which will depend on his clinical course. 1. History of gastroesophageal reflux disease. 2. History of constipation. 3. Abdominal and pelvic CT findings consistent with high-grade small bowel obstruction and chronic infiltrates in both bases that have improved since previous study. I do not see any active evidence of infection or bacterial pneumonia at this time. Chest x-ray repeated this morning, however, suggested a left upper lobe pneumonia. So, I will continue antibiotics. 4. Review of his orders: He is on Carafate 1 g q.6 hours. He is on Pulmicort 0.5 mg inhalation b.i.d. He is on Xopenex inhalation. He is on insulin sliding scale. He is getting normal saline at 125 mL an hour. Zosyn 2.25 g IV q.8. Linezolid 600 mg IV q.12h. Levofloxacin 750 mg, 1 dose. He was started on Protonix drip which has been stopped. He got 1 g of vancomycin loading dose. So right now, he is on just the Zosyn 2.25 g daily and linezolid. I think his Protonix drip has been discontinued. So, I will put him on Protonix 40 mg q.12. cc: Toan Arias MD
[2018-09-22] MEDS ORDERED: POTASSIUM CHLORIDE 20% LIQUID PO ONE (10:21)
--- NOTE | 2018-09-22 11:10 | GASTROENTEROLOGY PROGRESS NOTE ---
DATE: 09/22/2018 SUBJECTIVE: Patient resting in bed. His family is at the bedside. His NG tube aspiration has slowed down. This morning he has about 100 to 200 mL. He denies any nausea, he has not had a bowel movement yet. He is trying to have a bowel movement. He was given enemas with no benefit so far. OBJECTIVE: Vital signs: Temperature of 97.4, pulse rate of 70, respiratory rate 18, blood pressure 134/78, saturating 98% on 5 L nasal cannula. General Appearance: Thin , moderately built, lying in bed, in no acute distress. HEENT: Pale conjunctivae. No icterus. NG tube in place. Neck: Supple. Abdomen: Soft, nontender, nondistended. Ventral hernia noted. No guarding, no rebound. Extremities: No cyanosis, clubbing. Neurologic: Alert, awake, oriented. LABORATORIES: Hemoglobin and hematocrit is 12.2, 35.2, white count 10.1, platelet count 330,000. INR 1.13. PTT of 15.4, PTT of 44.6, pH of 7.43, pCO2 43, PO2 of 79. This is on FiO2 of 38%. Sodium 132, potassium 2.9, chloride 95, bicarb 36, anion gap of 12, BUN of 40. Creatinine 1. Glucose of 128. Calcium is 8.3, magnesium 2.1. Total bilirubin is 1.03. AST 11, ALT 6, alkaline phosphatase 72, total protein 7, albumin of 2.9 amylase of 43. Cortisol 13.1. Stool for occult blood is negative. Blood culture x1 have been drawn yesterday , currently pending. IMPRESSION AND PLAN: 1. Small bowel obstruction. Dr. Butch Vickers has seen the patient. At this point, we will continue conservative management. 2. Constipation: Last bowel movement was 1 week ago. So he is constipated. We will continue with the bowel regimen. Will start him on Dulcolax and MiraLAX and evaluate the response. We will check a KUB today. 3. Reflux disease. Continue PPIs for now. 4. History of gastric bypass complicated with internal hernia, requiring lysis of adhesions in [address] Butch Vickers. 5. Coffee ground emesis. Continue to watch hemoglobin and hematocrit. Continue Protonix twice daily. The NG output is now bilious. 6. He is on broad-spectrum antibiotics for possible pneumonia and sepsis. 7. We will follow along. The above plan of care was discussed with the patient and family at bedside. All questions answered. Please call us with any further questions. cc: MD Adam Rivers DO MTDD
--- NOTE | 2018-09-22 11:25 | Diag Imaging Result Doc PS360 ---
EXAM: KUB ABDOMEN 09/22/2018 HISTORY: evaluate for constipation or obstruction TECHNIQUE: KUB COMMENT: There is retained barium in the colon. There is a markedly distended gas-filled small bowel loop in the midabdomen. This was not evident on the previous examination of 09/21/2018, although that study did not demonstrate the entire abdomen. IMPRESSION: Focal ileus versus partial small bowel obstruction. Electronically signed by Costa Rodriguez 09/22/2018 11:23 AM
[2018-09-22 12:00] LABS: HEMATOCRIT 36.6 % (42.0-52.0); HEMOGLOBIN 12.6 g/dL (14.0-18.0)
[2018-09-22] MEDS: MORPHINE IV PRN (18:38)
[2018-09-22] MEDS: MIRALAX NG SCH (21:29)
[2018-09-23] MEDS: ZOSYN 2.25 GM in NS 50 ML IV SCH (00:43)
[2018-09-23] MEDS: NS 1,000 ML IV SCH ×4 (01:44→21:37)
[2018-09-23] MEDS: CARAFATE LIQUID PO SCH ×4 (01:44→20:22)
[2018-09-23] MEDS: MORPHINE IV PRN ×6 (01:53→20:21)
[2018-09-23] MEDS: XOPENEX NEB INH SCH ×7 (02:37→23:45)
[2018-09-23] MEDS: ATROVENT NEB INH SCH ×7 (02:37→23:44)
[2018-09-23] MEDS: HUMULIN R SUBQ SCH (04:40)
[2018-09-23 05:37] LABS: BASO# 0.05 X1000 (0.0-0.2); BASO% 0.5 % (0.0-0.8); EOS# 0.14 X1000 (0.0-0.7); EOS% 1.4 % (0.0-10.0); HEMATOCRIT 37.8 % (42.0-52.0); HEMOGLOBIN 12.8 g/dL (14.0-18.0); IMM GRAN# 0.07 X1000 (0.0-0.04); IMM GRAN% 0.7 % (0.0-0.5); LYMPH# 0.65 X1000 (1.2-3.4); LYMPH% 6.6 % (20.5-51.1); MCH 32.6 PG (27-31); MCHC 33.9 g/dL (33-37); MCV 96.2 FL (81-99); MONO# 0.97 X1000 (0.11-0.59); MONO% 9.8 % (1.7-9.3); MPV 9.6 FL (7.4-10.4); NEUT# 8.02 X1000 (1.4-6.5); PLT 306 X1000 (130-400); RBC 3.93 XMIL (4.7-6.1); RDW 11.8 % (11.5-14.5)
[2018-09-23 06:01] LABS: AGAP 12; CHLORIDE 103 mmol/L (98-107); POTASSIUM 2.9 mmol/L (3.5-5.1); SODIUM 141 mmol/L (136-145); TCO2 26 mmol/L (25-35)
[2018-09-23 06:02] LABS: ALB/GLOB RATIO 0.9; ALBUMIN 2.8 g/dL (3.5-5.0); ALKALINE PHOSPHATASE 70 U/L (32-122); BUN 20 mg/dL (8-22); CALCIUM 8.7 mg/dL (8.8-10.2); COSMO 284; CREATININE 0.6 mg/dL (0.7-1.2); ESTIMATED GFR > 60; GLUCOSE 106 mg/dL (70-104); GOT 10 U/L (10-34); GPT 6 U/L (10-44); TOTAL BILIRUBIN 0.79 mg/dL (0.20-1.00); TOTAL PROTEIN 5.9 g/dL (6.3-8.3)
--- NOTE | 2018-09-23 06:57 | Diag Imaging Result Doc PS360 ---
EXAM: CHEST-PORTABLE HISTORY: pneumonia TECHNIQUE: Portable chest single view COMPARISON: 09/22/2018 FINDINGS: There are infiltrates throughout the left lung. There is mild pulmonary edema. No cardiomegaly. No change in the nasogastric tube. The overall appearance is similar to the prior study. IMPRESSION: No interval improvement. Electronically signed by Corey Cox 09/23/2018 6:54 AM
[2018-09-23] MEDS ORDERED: POTASSIUM CHLORIDE 20% LIQUID NG ONE (07:21)
[2018-09-23] MEDS: PULMICORT INH SCH ×2 (07:39→19:44)
[2018-09-23] MEDS ORDERED: POTASSIUM CHLORIDE 60 MEQ in NS 500 ML IV ONE ×4 (08:00)
[2018-09-23] MEDS: ZYVOX 600 MG/D5W 600 MG/300 ML IVPB IV SCH ×2 (08:34→20:22)
[2018-09-23] MEDS: MAXIPIME 2 GM in NS 100 ML IV SCH ×2 (08:34→20:22)
[2018-09-23] MEDS: DULCOLAX PR SCH ×2 (08:35→20:21)
[2018-09-23] MEDS: MIRALAX NG SCH ×2 (08:35→20:21)
[2018-09-23] MEDS: PROTONIX 80 MG in NS 80 ML IV SCH ×3 (08:35)
--- NOTE | 2018-09-23 08:46 | Diag Imaging Result Doc PS360 ---
EXAM: ABDOMEN FLAT/UPRIGHT HISTORY: obstruction TECHNIQUE: Flat and upright, two views COMPARISON: 09/22/2018 FINDINGS: No free air beneath the diaphragm. There is contrast throughout the colon. Dilated bowel in the mid abdomen remains and is unchanged. No organomegaly. There is a penile implant. IMPRESSION: No interval improvement. Electronically signed by Corey Cox 09/23/2018 8:43 AM
[2018-09-23] MEDS ORDERED: SODIUM PHOSPHATE 30 MMOL in NS 250 ML IV ONE (09:00)
[2018-09-23] MEDS: LOPRESSOR IV SCH ×2 (11:52→17:17)
--- NOTE | 2018-09-23 19:45 | GENERAL SURGERY PROGRESS NOTE ---
DATE: 09/23/2018 SUBJECTIVE: Having bowel movements every night. NG tube output has been minimal. He is drinking ice chips. OBJECTIVE: Vital Signs: No fevers. Pulse has been in the 70s. Blood pressure 147/88, oxygen saturation 93% on 4 liters. General: He is alert. Abdomen: Soft. Integument: Warm and dry. Cardiovascular: Normal rate. LABORATORY DATA: White count is 9, hematocrit 37. Creatinine is 0.6. Potassium is 2.9. Magnesium is 2.0. ASSESSMENT/PLAN: A 63-year-old gentleman with a bowel obstruction which seems to be resolving. I would recommend aggressive repletion of his electrolytes with potassium greater than 4 and magnesium greater than 2. It does look like he has been administered potassium overnight. We will continue to follow along. We can discontinue his nasogastric tube and give him clear liquids solely, and he needs to be out of bed moving as much as possible. cc: Facundo Vickers MD
[2018-09-23] MEDS: DESYREL PO SCH (20:21)
[2018-09-23] MEDS: COLACE PO SCH (20:21)
[2018-09-23] MEDS: CARDIZEM PO SCH (20:21)
--- NOTE | 2018-09-23 23:28 | PROGRESS NOTE ---
DATE: 09/23/2018 SUBJECTIVE: The patient is resting comfortably in bed. He states that he has been having bowel movements, and he has less abdominal pain. OBJECTIVE: Vital Signs: Temperature 98.1 degrees, blood pressure 153/92, heart rate 87, respirations 18, oxygen saturation 99% on 4 L nasal cannula. General: This is a chronically ill- appearing elderly male, lying in bed, in no acute distress. Heart: S1, S2 normal. Regular rate and rhythm. Lungs: Equal air entry bilaterally. No wheezing. No rales. No rhonchi. Abdomen: Positive bowel sounds. Soft, nontender, nondistended. Extremities: No edema. No cyanosis. Neurologic: The patient is alert and oriented x3. LABS: White blood cell count 9.9, hemoglobin 12, hematocrit 37, platelets 306,000. Sodium 141, potassium 2.9, chloride 103, CO2 26, BUN 20, creatinine 0.6, glucose 106, phosphorus 2.6, calcium 8.7. Chest x-ray reveals infiltrates throughout the left lung. Abdominal x-ray shows dilated bowel in the mid abdomen. ASSESSMENT AND PLAN: 1. Small bowel obstruction. The patient has been advanced to a clear diet. We will monitor the patient's response closely. General Surgery is following. 2. Pneumonia. The patient's antibiotics have been switched. We will continue to monitor the patient closely for improvement. Also, a procalcitonin level has been ordered. Continue bronchodilator therapy. 3. Paroxysmal atrial fibrillation. The patient is rate controlled. We will restart the oral diltiazem. 4. Insomnia. We will restart the trazodone. 5. Hypokalemia. We will replace the patient's potassium. 6. Hypophosphatemia. We will replace the patient's phosphorus. 7. History of gastric bypass. Aware. 8. Gastrointestinal prophylaxis. Continue with Protonix. 9. Deep vein thrombosis prophylaxis. Continue with SCDs. 10. Disposition. The patient is stable for transfer to the medical floor. cc: Preeti Bunn MD
--- NOTE | 2018-09-24 00:06 | GASTROENTEROLOGY PROGRESS NOTE ---
DATE: 09/23/2018 SUBJECTIVE: No acute overnight events, afebrile. Patient denies nausea, vomiting, fevers, chest pain, shortness of breath, abdominal pain, blood in stool. He reports feeling 100% better after having a bowel movement this morning. OBJECTIVE: Vitals: 98.3, pulse 70, respiratory rate 20, blood pressure 135/78, O2 saturation 97% on 4 L nasal cannula. General: The patient is awake, alert, oriented, no acute distress, pleasant. HEENT: Extraocular motor intact. Anicteric. Moist mucous membranes. NG tube in place with minimal bilious fluid in reservoir. Neck: No lymphadenopathy. Lungs: Decreased breath sounds at the bases bilaterally. No wheezing or crackles. Cardiac: Regular rate and rhythm. No murmurs. Abdomen: Prior surgical scar noted. Distended. Mild tympany. No tenderness. No ascites. Extremities: Lower extremities no clubbing, cyanosis, edema. Neuro: Nonfocal. LABS: White count 9.9, hemoglobin of 12.8, platelets of 306,000, sodium 141, potassium 2.9, chloride 103, carbon dioxide of 26, BUN of 20, creatinine of 0.6, glucose of 106, AST of 10, ALT of 6, alkaline phosphatase is 70, total protein of 5.9, albumin of 2.8, total bilirubin of 0.79. KUB shows dilated bowel in the midabdomen that remains unchanged. Chest x-ray shows infiltrates throughout the left lung. Mild pulmonary edema. No interval improvement compared to prior x-ray on the . ASSESSMENT AND PLAN: 1. Mr. Olvera is a 63-year-old gentleman admitted with small-bowel obstruction that is improved significantly with nasogastric tube decompression and supportive care. He has had a bowel movement overnight. His abdomen is soft, nontender. No significant output from his nasogastric tube since it was last checked, recommend discontinuing NG tube and initiating patient on clear liquid diet as tolerated. 2. Constipation. Continue bowel regimen. 3. Gastroesophageal reflux disease. Continue PPI for GI prophylaxis for now. 4. History of gastric bypass complicated by internal hernia status post lysis of adhesions by Dr. Vickers in 2018. 5. Upper gastrointestinal bleed with coffee-grounds emesis. Hemoglobin remains stable at this point, will continue PPI for now. No bloody output from NG tube. 6. He is currently on antibiotics for possible pneumonia. We will continue to follow with you. The above plan was discussed with patient at bedside. All questions were answered. Please call with any questions or concerns.
[2018-09-24] MEDS: PROTONIX 80 MG in NS 80 ML IV SCH (00:47)
[2018-09-24] MEDS: MORPHINE IV PRN ×6 (02:01→21:16)
[2018-09-24] MEDS: CARDIZEM PO SCH ×4 (02:01→21:07)
[2018-09-24] MEDS: CARAFATE LIQUID PO SCH ×4 (02:02→21:07)
[2018-09-24] MEDS: ATROVENT NEB INH SCH ×6 (03:45→23:29)
[2018-09-24] MEDS: XOPENEX NEB INH SCH ×6 (03:45→23:29)
[2018-09-24 04:53] LABS: BASO# 0.06 X1000 (0.0-0.2); BASO% 0.6 % (0.0-0.8); EOS# 0.18 X1000 (0.0-0.7); EOS% 1.7 % (0.0-10.0); HEMOGLOBIN 11.9 g/dL (14.0-18.0); IMM GRAN# 0.18 X1000 (0.0-0.04); IMM GRAN% 1.7 % (0.0-0.5); LYMPH# 0.56 X1000 (1.2-3.4); LYMPH% 5.2 % (20.5-51.1); MCH 32.7 PG (27-31); MCV 96.2 FL (81-99); MONO# 1.06 X1000 (0.11-0.59); MONO% 9.9 % (1.7-9.3); MPV 9.7 FL (7.4-10.4); NEUT# 8.68 X1000 (1.4-6.5); NEUT% 80.9 % (42.2-75.2); PLT 342 X1000 (130-400); RBC 3.64 XMIL (4.7-6.1); RDW 11.9 % (11.5-14.5); WBC 10.72 X1000 (4.8-10.8)
[2018-09-24 05:14] LABS: AGAP 13; BUN 10 mg/dL (8-22); CALCIUM 8.1 mg/dL (8.8-10.2); CHLORIDE 104 mmol/L (98-107); COSMO 281; CREATININE 0.4 mg/dL (0.7-1.2); ESTIMATED GFR > 60; GLUCOSE 113 mg/dL (70-104); MAGNESIUM 1.7 mg/dL (1.5-2.7); PHOSPHORUS 3.4 mg/dL (2.7-4.5); POTASSIUM 3.1 mmol/L (3.5-5.1); SODIUM 141 mmol/L (136-145); TCO2 24 mmol/L (25-35)
[2018-09-24] MEDS ORDERED: MAGNESIUM SULFATE 2 GM/S.W.I. 2 GM/50 ML IVPB IV ONE (05:28)
[2018-09-24] MEDS ORDERED: POTASSIUM CHLORIDE 60 MEQ in NS 500 ML IV ONE (05:28)
--- NOTE | 2018-09-24 07:29 | Diag Imaging Result Doc PS360 ---
EXAM: CHEST-PORTABLE INDICATION: pneumonia TECHNIQUE: One view COMPARISON: 09/23/2018 FINDINGS: Diffuse bilateral infiltrates, worse on the left, are grossly stable. No new consolidation is identified. Cardiac silhouette is stable. IMPRESSION: Stable chest. Electronically signed by Darryn Casarez 09/24/2018 7:26 AM
[2018-09-24] MEDS: PULMICORT INH SCH ×2 (07:40→19:40)
[2018-09-24] MEDS: MAXIPIME 2 GM in NS 100 ML IV SCH ×2 (08:48→23:36)
[2018-09-24] MEDS: MIRALAX NG SCH ×2 (08:48→21:07)
[2018-09-24] MEDS: ZYVOX 600 MG/D5W 600 MG/300 ML IVPB IV SCH ×2 (08:48→21:06)
[2018-09-24] MEDS: DULCOLAX PR SCH ×2 (08:48→21:07)
[2018-09-24] MEDS: PROTONIX IV SCH ×2 (09:54→21:08)
--- NOTE | 2018-09-24 10:07 | INFECTIOUS DISEASE CONSULT REP ---
DATE: 09/24/2018 CONCLUSION: The patient has a bilateral pneumonia. I suspect that it may be due to aspiration in view of the fact that the patient came in with a small bowel obstruction. RECOMMENDATIONS: I agree with treating the patient with cefepime and Zyvox. DISCUSSION: The patient initially came in the hospital with a small-bowel obstruction. He had to have an NG tube placed. He is gradually getting better and the NG tube is out. The patient in the past day has become short of breath. His chest x-ray shows bilateral infiltrates. His CBC shows a white count of 10,720, hemoglobin 11.9, and platelet count of 342,000. Creatinine is 0.4. GFR is greater than 60. Liver function studies are normal. Blood cultures are negative. The patient is unable to produce a sputum. PAST MEDICAL HISTORY/REVIEW OF SYSTEMS: Eyes and ears: He can see and hear okay. Neck: No stiffness. Respiratory: See present illness. Cardiovascular: No chest pain or palpitations. GI: No nausea, vomiting, or diarrhea. : No dysuria or flank pain. Bones , joints, muscles: The patient has chronic pain in his left leg and low back area secondary to osteoarthritis. Neurologic: The patient does not have seizures. He has not recently lost any motor or sensory function. PREVIOUS HOSPITALIZATIONS AND OPERATIONS: He has had a fracture of his left leg which required placement of a plate. He had another fracture at a different time and he has got a alonso in his femur. He has had a gastric bypass. He has had 3 penile implants. He has also been admitted to the hospital with another small bowel obstruction, which required surgery. The obstructions have been due to adhesions. As a result of his last surgery on the abdomen, he has developed an abdominal wall hernia. MEDICAL DISEASES: Positive for small bowel obstruction, abdominal wall hernia, hypertension, and gastroesophageal reflux disease. INFECTIOUS DISEASE HISTORY: Infectious disease history positive for pneumonia, negative for UTI. FAMILY HISTORY: Positive for diabetes mellitus, hypertension, myocardial infarction, stroke, and cancer. SOCIAL HISTORY: [place] . He stays with his mother for a few days a week and with his girlfriend for other few days in the week. The girlfriend has dogs as pets. The other times, the patient stays in his own home and he is there alone. He is retired from working at a [email or web address] plant. The patient drinks alcoholic beverages but does not smoke or use illicit drugs. ALLERGIES: No known allergies. HOME MEDICATIONS: Tylenol, Mucomyst, albuterol inhaler, Dulcolax, Cardizem, Colace, gabapentin, omeprazole and Protonix. PHYSICAL EXAMINATION: Vital Signs: Temperature was 100, now it is 98.8. The pulse is 73, respirations 15, blood pressure 91/73. General: This is a fairly healthy- appearing, middle-aged male. He is in no acute distress at this time. Head/eyes/ears/nose/throat: He can hear my spoken words and see near objects. He does not have any white patches on his tongue. Neck: No meningismus. Lungs: Clear to auscultation. Cardiovascular: Heart rate is regular. Abdomen: Soft. There is a large abdominal wall hernia. Bowel sounds are present. Neurologic: Patient is alert. He can move his extremities. There is no tremor. His sensation is intact to touch. Integument: No rash. Bones, joints, muscles: The patient does not have any swollen joints or muscle tenderness. Thank you for the consult. cc: Nestor Mabry MD MTDD
--- NOTE | 2018-09-24 13:02 | Diag Imaging Result Doc PS360 ---
KUB ABDOMEN - 09/24/2018 INDICATION: indigestion, vomiting, belching COMPARISON: 09/23/2018 FINDINGS: There has been essentially no movement of the contrast throughout the distal colon and rectum. There is a stable gas-distended loop of small bowel centrally in the left upper quadrant. No definite free air. IMPRESSION: Gas-distended small bowel loop concerning for partial obstruction. Overall poor motility of colonic contrast material. No change from prior. Electronically signed by Kevyn Giles 09/24/2018 1:00 PM
[2018-09-24] MEDS: LOVENOX SUBQ SCH (17:14)
[2018-09-24 18:27] LABS: MAGNESIUM 1.8 mg/dL (1.5-2.7); PHOSPHORUS 2.8 mg/dL (2.7-4.5); POTASSIUM 3.6 mmol/L (3.5-5.1)
--- NOTE | 2018-09-24 20:16 | PROGRESS NOTE ---
DATE: 09/24/2018 SUBJECTIVE,: The patient was feeling okay this morning, however, after breakfast he had an episode of nausea and then emesis. OBJECTIVE: Vital signs: Temperature 99 degrees, blood pressure 159/90, heart rate 83, respirations 23, O2 saturation 96% on 4 L nasal cannula. General: This is a chronically ill- appearing male lying in bed in no acute distress. Heart: S1, S2 normal. Regular rate and rhythm. Lungs: Coarse breath sounds bilaterally. Abdomen: Positive bowel sounds. Soft, nontender, nondistended. Extremities: No edema, no cyanosis. Neurologic: The patient is alert and oriented x4. LABORATORY DATA: White blood cell count 10, hemoglobin 11, hematocrit 35, platelets 342,000. Sodium 141, potassium 3.1, chloride 104, CO2 of 24, BUN 10, creatinine 0.4 glucose 113, albumin 3, procalcitonin 0.47. ASSESSMENT AND PLAN: 1. Small bowel obstruction. The patient did not tolerate his breakfast this morning. A repeat abdominal x-ray this afternoon showed a partial small bowel obstruction. Will defer to the general surgeon. 2. Pneumonia. Continue with IV antibiotic therapy as directed by Dr. Mabry. 3. Paroxysmal atrial fibrillation. Continue on oral diltiazem. 4. Insomnia. Continue on trazodone. 5. History of gastric bypass. Aware. 6. Anemia. Stable. 7. Hypokalemia. Will replace the patient's potassium. 8. Deep vein thrombosis prophylaxis. Will start the patient on Lovenox. cc: Preeti Bunn MD
[2018-09-24] MEDS: DESYREL PO SCH (21:07)
[2018-09-24] MEDS: COLACE PO SCH (21:07)
[2018-09-25] MEDS: CARAFATE LIQUID PO SCH ×4 (01:47→22:28)
[2018-09-25] MEDS: CARDIZEM PO SCH ×4 (01:47→22:28)
--- NOTE | 2018-09-25 01:52 | GASTROENTEROLOGY PROGRESS NOTE ---
DATE: 09/24/2018 SUBJECTIVE: No acute overnight events. Afebrile. The patient reports tolerating clear liquid diet yesterday and this morning. He denies any nausea, vomiting, fevers, chest pain, shortness of breath or abdominal pain. He continues to have bowel movements. OBJECTIVE: Vital Signs: Temperature 98.8 degrees, heart rate 73, respiratory rate 15, blood pressure 91/73, O2 saturation of 96% on 4 L nasal cannula. General: Awake, alert, oriented, in no acute distress. HEENT: Anicteric. Moist mucous membranes. Neck: No JVD or lymphadenopathy. Cardiac: Regular rate and rhythm. No murmurs. Lungs: Clear to auscultation bilaterally anteriorly. Abdomen: Postsurgical scars. Nondistended. Soft. Normoactive bowel sounds. No rebound or guarding. Lower Extremities: No clubbing, cyanosis, or edema Neurologic: Nonfocal. LABORATORY DATA: White count 10.7, hemoglobin 11.9, platelets of 342,000. Sodium 141, potassium 3.1, chloride of 104, bicarbonate of 24, BUN 10, creatinine 0.4. IMAGING: Abdominal x-ray shows gas distended small bowel loop concerning for partial obstruction, overall poor motility of colonic contrast material, no change from prior. ASSESSMENT AND PLAN: Mr. Olvera is a 63-year-old gentleman admitted with small-bowel obstruction that is improved significantly with supportive care with nasogastric tube decompression. He has had multiple bowel movements since yesterday. He denies any abdominal complaints. He is tolerating clear liquid diet. Would recommend advancing diet as tolerated as per surgery. 1. Constipation. Continue bowel regimen. 2. Gastroesophageal reflux disease. Continue proton pump inhibitor. 3. History of gastric bypass complicated by internal hernia status post lysis of adhesions by Dr. Vickers in 2018. 4. Upper gastrointestinal bleed with coffee-grounds emesis. Hemoglobin remains stable. The patient is on proton pump inhibitor. Will continue to monitor hemoglobin. 5. Pneumonia. The patient is currently on antibiotics. Infectious Disease team is following and managing antibiotics. The plan was discussed with the patient at bedside. All questions were answered. Please call with any questions or concerns.
[2018-09-25] MEDS: XOPENEX NEB INH SCH ×6 (03:26→23:30)
[2018-09-25] MEDS: ATROVENT NEB INH SCH ×6 (03:26→23:30)
--- NOTE | 2018-09-25 04:57 | GENERAL SURGERY PROGRESS NOTE ---
DATE: 09/24/2018 SUBJECTIVE: Continues to have reliable bowel function. No fevers. No tachycardia. OBJECTIVE: Vital signs: Blood pressures systolics in the 140 to 160s. General: He is alert. Cardiovascular: Normal rate. Abdomen: Soft. There is a reducible ventral hernia that is nontender. LABORATORY DATA: White count 10, hematocrit 35. Creatinine 0.4, potassium is low at 3.1. ASSESSMENT AND PLAN: A 63-year-old gentleman with partial bowel obstruction, history of multiple abdominal operations. Would continue to replete his electrolytes and okay to begin advancing his diet. Will allow him to recover from this prior to proceeding with ventral hernia repair. The source of the site of obstruction was not in the hernia itself, but more intra-abdominal. cc: Facundo Vickers MD
[2018-09-25 06:55] LABS: BASO# 0.08 X1000 (0.0-0.2); BASO% 0.5 % (0.0-0.8); EOS# 0.07 X1000 (0.0-0.7); EOS% 0.4 % (0.0-10.0); HEMATOCRIT 36.7 % (42.0-52.0); HEMOGLOBIN 12.5 g/dL (14.0-18.0); IMM GRAN# 0.35 X1000 (0.0-0.04); IMM GRAN% 2.1 % (0.0-0.5); LYMPH# 0.48 X1000 (1.2-3.4); LYMPH% 2.9 % (20.5-51.1); MCH 32.4 PG (27-31); MCHC 34.1 g/dL (33-37); MCV 95.1 FL (81-99); MONO# 1.68 X1000 (0.11-0.59); MONO% 10.3 % (1.7-9.3); MPV 9.7 FL (7.4-10.4); NEUT% 83.8 % (42.2-75.2); PLT 367 X1000 (130-400); RBC 3.86 XMIL (4.7-6.1); RDW 11.9 % (11.5-14.5); WBC 16.36 X1000 (4.8-10.8)
[2018-09-25] MEDS: MORPHINE IV PRN ×4 (06:56→22:15)
[2018-09-25 07:05] LABS: AGAP 16; ALBUMIN 3.1 g/dL (3.5-5.0); BUN 8 mg/dL (8-22); CALCIUM 8.2 mg/dL (8.8-10.2); CHLORIDE 98 mmol/L (98-107); COSMO 274; CREATININE 0.5 mg/dL (0.7-1.2); ESTIMATED GFR > 60; GLUCOSE 134 mg/dL (70-104); MAGNESIUM 1.7 mg/dL (1.5-2.7); POTASSIUM 3.3 mmol/L (3.5-5.1); SODIUM 137 mmol/L (136-145); TCO2 23 mmol/L (25-35)
[2018-09-25] MEDS ORDERED: MAGNESIUM SULFATE 2 GM/S.W.I. 2 GM/50 ML IVPB IV ONE (07:39)
[2018-09-25] MEDS ORDERED: KLOR-CON PO ONE (07:39)
[2018-09-25] MEDS: PULMICORT INH SCH ×2 (08:12→19:30)
[2018-09-25] MEDS: MAXIPIME 2 GM in NS 100 ML IV SCH ×2 (09:04→22:26)
[2018-09-25] MEDS: DULCOLAX PR SCH ×2 (09:05→22:29)
[2018-09-25] MEDS: PROTONIX IV SCH ×2 (09:06→22:28)
[2018-09-25] MEDS: SODIUM CHLORIDE 0.9% INJ SCH (09:06)
[2018-09-25] MEDS: MIRALAX NG SCH ×2 (09:06→22:28)
--- NOTE | 2018-09-25 10:28 | Diag Imaging Result Doc PS360 ---
EXAM: FLAT/UPRIGHT ABD/1 VIEW CHEST 09/25/2018 HISTORY: obstruction/pneumonia TECHNIQUE: Flat and upright abdomen with AP upright portable chest COMMENT: There is retained barium in the colon including the rectum. There are markedly distended gas-filled small bowel loops in the mid and upper abdomen. This was also the case at the time the previous examination of 09/24/2018. There are coarse opacities throughout both lungs which are slightly worse than on 01/22/2018 and with respect to the left apex and right midlung field worse than on 09/21/2018. IMPRESSION: 1. Small bowel obstruction. 2. Pulmonary fibrosis with superimposed pneumonia versus pulmonary edema. Electronically signed by Costa Rodriguez 09/25/2018 10:26 AM
[2018-09-25] MEDS: ZYVOX 600 MG/D5W 600 MG/300 ML IVPB IV SCH ×2 (11:01→22:26)
[2018-09-25] MEDS ORDERED: DULCOLAX PR ONE (11:04)
[2018-09-25] MEDS ORDERED: MISC. PHARMACY COMMUNICATION SCH (11:15)
--- NOTE | 2018-09-25 13:12 | GENERAL SURGERY PROGRESS NOTE ---
DATE: 09/25/2018 SUBJECTIVE: Was feeling very well, was transferred out the floor, but developed some nausea with emesis this morning. No fevers. OBJECTIVE: Heart rates have been in the low 100s. Blood pressure 150-160 systolic. Oxygen saturation is in the low 90s. He is on a 5 L nasal cannula. General: He is alert. Abdomen: Soft, is nontender. He has a reducible incisional hernia. LABS: White count up to 16, hematocrit is 36. Creatinine 0.5, potassium down to 3.3. ASSESSMENT AND PLAN: 1. This is a 63-year-old gentleman, with apparent bowel obstruction. 2. He also has bilateral pneumonias. He has a complicated ICU course recently. I reviewed all of his imaging. His abdominal exam is benign. I see no signs of peritonitis I was hopeful this had resolved and I do suspect that after considering his exploration previously and his imaging currently, that this most likely is adhesive disease related. It would be a complicated reoperation were we to have to, given his multiple previous abdominal operations and his tenuous medical condition. We will follow him along. We may have to replace his nasogastric tube. I will get a small-bowel follow-through. He also has retained contrast from study last week in his colon, which suggests some degree of ileus. I would recommend aggressive repletion of his electrolytes. Continue proton pump inhibitor therapy and also provide bowel stimulation from below with Dulcolax and enemas. cc: Facundo Vickers MD
[2018-09-25] MEDS: ZOFRAN IV PRN ×2 (14:32→22:15)
--- NOTE | 2018-09-25 14:44 | GASTROENTEROLOGY PROGRESS NOTE ---
DATE: 09/25/2018 SUBJECTIVE: Patient resting in bed. He is feeling nauseated. He had thrown up bilious stuff this morning. He had abdominal x-ray which showed evidence of markedly distended gas filled small bowel loops in mid and upper abdomen suggesting small bowel obstruction. OBJECTIVE: Vital signs: Temperature of 99.2, pulse rate of 105, respiratory rate 22, blood pressure 134/84, saturating 91% on 4 L nasal cannula. General Appearance: Thin, moderately built, lying in bed, in no acute distress. HEENT: Mild pallor. No icterus. Neck: Supple. Abdomen: Softer than before. Abdominal wall hernia noted. No guarding or rebound. Extremities: No cyanosis or clubbing. Neurologic: Awake, oriented, and oriented x3. LABORATORIES: Hemoglobin and hematocrit is 12.5 and 36.7, white count 16.36, platelet count 367,000. Sodium 137, potassium 3.3, chloride 98, bicarb 23, anion gap of 16, BUN of 8. Creatinine 0.5. Glucose of 134. Calcium is 8.2, phosphorus 3, magnesium 1.7, albumin of 3.1. IMAGING: Abdominal x-ray as described above. IMPRESSION AND PLAN: 1. Small bowel obstruction. He has been throwing up this morning. He is having liquid bowel movement. Dr. Vickers is on board. He is continuing on conservative management for now. 2. Anemia. Continue to watch for now. 3. Gastrointestinal prophylaxis. Continue proton pump inhibitors. 4. Pneumonia. He is on intravenous antibiotics. 5. Paroxysmal atrial fibrillation. He is on oral Cardizem. 6. Insomnia. He is on trazodone. 7. History of previous small bowel obstruction requiring surgery by Dr. Vickers in 2018 in a setting of known history of gastric bypass and possible internal hernia. 8. Deep venous thrombosis prophylaxis with Lovenox. The above plan of care was discussed with the patient and family and all questions were answered. Please call us with any further questions. cc: MD Adam Rivers DO R. Tyler Harney, MD
[2018-09-25 15:19] LABS: MAGNESIUM 1.9 mg/dL (1.5-2.7); POTASSIUM 3.6 mmol/L (3.5-5.1)
[2018-09-25] MEDS: LR 1,000 ML IV SCH (16:26)
--- NOTE | 2018-09-25 17:09 | Diag Imaging Result Doc PS360 ---
EXAM: CHEST-PORTABLE INDICATION: NGT placement TECHNIQUE: One view COMPARISON: 09/25/2018 FINDINGS: The newly placed NG tube projects well below the diaphragm and is assumed to be in the lumen of the stomach in expected position. There is contrast media in the stomach from a small bowel barium follow-through in progress. Limited views of the lungs are grossly stable. IMPRESSION: Interval placement of NG tube in expected position as described. Electronically signed by Darryn Casarez 09/25/2018 5:07 PM
[2018-09-25] MEDS ORDERED: POTASSIUM CHLORIDE 20 MEQ/SWI 20 MEQ/100 ML IVPB IV ONE (18:12)
[2018-09-25] MEDS ORDERED: LASIX IV ONE (18:14)
[2018-09-25] MEDS: LOVENOX SUBQ SCH (18:54)
--- NOTE | 2018-09-25 19:17 | PROGRESS NOTE ---
DATE: 09/25/2018 SUBJECTIVE: The patient states that he feels horrible today. He has been vomiting all night and into this morning. He is unable to tolerate anything by mouth and continues to have abdominal pain. OBJECTIVE: Vital Signs: Temperature 99.2, blood pressure 154/84, heart rate 103, respirations 20, O2 sats 95% on 4 L nasal cannula. General: This is a chronically ill-appearing elderly male lying in bed in no acute distress. Heart: S1, S2 normal. Tachycardic. Lungs: Equal air entry bilaterally. No crackles. No rales. Abdomen: Hypoactive bowel sounds. Mildly distended and diffuse tenderness. Extremities: No edema, no cyanosis. Neurologic: The patient is alert and oriented x 3. LABS: White blood cell count 16, hemoglobin 12, hematocrit 36, platelets 367,000. Sodium 137, potassium 3.4, chloride 98, CO2 23, BUN 8, creatinine 0.5, glucose 134, calcium 8.2. Abdominal x-ray shows a small bowel obstruction. Some pulmonary fibrosis with superimposed pneumonia. ASSESSMENT AND PLAN: 1. Acute hypoxemic respiratory failure. Multifactorial. The patient has pneumonia and pulmonary edema. Will give the patient a dose of Lasix. Will continue with antibiotic therapy as directed by Dr. Mabry. 2. Pulmonary edema. The patient will receive Lasix today. 3. Pneumonia. Continue with IV antibiotic therapy plus bronchodilator therapy. 4. Paroxysmal atrial fibrillation. Continue on Cardizem. 5. Small bowel obstruction. The patient appears to have taken a back slide and is having abdominal pain and vomiting everything up again. Will await further recommendations from the general surgeon. 6. Leukocytosis. This is likely secondary to the pneumonia. Continue with antibiotic therapy. 7. GI prophylaxis. Continue on IV Protonix. 8. DVT prophylaxis. The patient is on Lovenox. cc: Preeti Bunn MD
[2018-09-25] MEDS: DESYREL PO SCH (22:29)
[2018-09-25] MEDS: COLACE PO SCH (22:29)
--- NOTE | 2018-09-25 23:01 | INFECTIOUS DISEASE PROGRESS NO ---
DATE: 09/25/2018 PRESENT ILLNESS: The patient has a bilateral pneumonia which I think could be due to aspiration in view of the fact that the patient was admitted with a bowel obstruction. MEDICATIONS: The patient has been on cefepime and Zyvox now for 4 days. PHYSICAL EXAMINATION: Vital Signs: Temperature is 99 degrees, pulse 100, respirations 24, blood pressure 150/70. General: This is a somewhat ill-appearing, middle-aged male. He actually looks better to me today than he did yesterday. He is in no acute distress. Head, eyes, ears, nose, and throat: He can hear my spoken words and see near objects. He does not have any white coating on his tongue. Neck: No stiffness. Lungs: Clear to auscultation. Cardiovascular: Heart rate is regular. Abdomen: Soft and not tender. There is a large abdominal wall hernia. Neurologic: The patient is alert. He can move his extremities. There is no tremor. Integument: No rash. LABORATORY AND X-RAY: The patient had a chest x-ray today. To me, I did not see any new infiltrates, but the radiologist reading is not yet back. The CBC shows a white count of 16,360, hemoglobin 12.5, and platelet count 367,000. Creatinine is 0.5. GFR is greater than 60. Procalcitonin is 0.47, indicating likely pneumonia. Sputum culture grew normal rosemary, and blood cultures are negative. ASSESSMENT AND PLAN: Overall, I think the patient is doing well. His white count did increase today, but I think I am just going to continue with the current antibiotics and follow the patient clinically and repeat his chest x-ray as necessary. COMORBIDITIES: The patient has episodes of small-bowel obstruction. He has an abdominal wall hernia, and he also has gastroesophageal reflux disease. cc: Nestor Mabry MD
--- NOTE | 2018-09-25 23:58 | GENERAL SURGERY PROGRESS NOTE ---
DATE: 09/25/2018 SUBJECTIVE: He had increasing distention and vomiting this morning. Small bowel followthrough showed persistent changes, consistent with obstruction. NG tube is replaced, and had greater than a liter of bilious fluid. He feels better. His abdomen is more soft now. OBJECTIVE: Vital Signs: No fevers. Pulse has been in the low 100s. Blood pressures have been hypertensive, up to 154 systolic. General: He is in no acute distress. NG tube is bilious. Cardiovascular: Normal rate. Abdomen: Soft. Incisional hernia remains reducible and soft. ASSESSMENT AND PLAN: This is a 63-year-old gentleman with a bowel obstruction that is persistent. He did have some degree of resolution over the last 48 hours, but he is re-obstructed it appears. We will continue NG tube decompression. I recommended exploratory laparotomy with possible bowel obstruction, possible revision of his gastric bypass, and all other indicated procedures. He understands and consents. We did discuss that we will primarily repair his ventral hernia, but that this may not be a lasting repair, and we will not use mesh. I have added him on. We will keep him NPO at midnight. cc: Facundo Vickers MD
[2018-09-26] MEDS: MORPHINE IV PRN ×3 (03:34→14:30)
[2018-09-26] MEDS: LR 1,000 ML IV SCH ×3 (03:34→20:19)
[2018-09-26] MEDS: XOPENEX NEB INH SCH ×5 (04:05→19:59)
[2018-09-26] MEDS: ATROVENT NEB INH SCH ×5 (04:05→19:59)
[2018-09-26] MEDS: CARAFATE LIQUID PO SCH ×4 (05:19→19:13)
[2018-09-26] MEDS: CARDIZEM PO SCH ×3 (05:20→20:27)
[2018-09-26 06:53] LABS: HEMATOCRIT 35.6 % (42.0-52.0); HEMOGLOBIN 12.2 g/dL (14.0-18.0); MCH 32.6 PG (27-31); MCHC 34.3 g/dL (33-37); MCV 95.2 FL (81-99); MPV 9.3 FL (7.4-10.4); RBC 3.74 XMIL (4.7-6.1); RDW 12.1 % (11.5-14.5); WBC 14.96 X1000 (4.8-10.8)
--- NOTE | 2018-09-26 07:21 | Diag Imaging Result Doc PS360 ---
EXAM: CHEST-PORTABLE INDICATION: pneumonia TECHNIQUE: One view COMPARISON: 09/25/2018 FINDINGS: The NG tube is in approximately stable position. Diffuse bilateral infiltrates, worse on the left, are essentially stable. No new consolidation is identified. Cardiac silhouette is stable. IMPRESSION: Stable chest. Electronically signed by Darryn Casarez 09/26/2018 7:19 AM
[2018-09-26 07:27] LABS: AGAP 16; ALBUMIN 2.8 g/dL (3.5-5.0); BUN 7 mg/dL (8-22); CALCIUM 8.4 mg/dL (8.8-10.2); CHLORIDE 100 mmol/L (98-107); COSMO 277; CREATININE 0.4 mg/dL (0.7-1.2); ESTIMATED GFR > 60; GLUCOSE 123 mg/dL (70-104); MAGNESIUM 1.7 mg/dL (1.5-2.7); PHOSPHORUS 3.1 mg/dL (2.7-4.5); POTASSIUM 3.3 mmol/L (3.5-5.1); SODIUM 139 mmol/L (136-145); TCO2 23 mmol/L (25-35)
[2018-09-26] MEDS: PULMICORT INH SCH ×2 (08:22→19:59)
[2018-09-26] MEDS: MAXIPIME 2 GM in NS 100 ML IV SCH ×2 (08:56→21:13)
[2018-09-26] MEDS ORDERED: MAGNESIUM SULFATE 2 GM/S.W.I. 2 GM/50 ML IVPB IV ONE (10:12)
[2018-09-26] MEDS: POTASSIUM CHLORIDE 20 MEQ/SWI 20 MEQ/100 ML IVPB IV SCH (10:24)
--- NOTE | 2018-09-26 11:06 | GASTROENTEROLOGY PROGRESS NOTE ---
DATE: 09/26/2018 SUBJECTIVE: The patient developed acute nausea, vomiting, and abdominal pain yesterday concerning for persistent obstruction. The patient had a small bowel follow-through as well that showed persistent obstruction. NG tube placement was performed with significant improvement in patient's symptoms. No acute overnight events. He denies any nausea, vomiting, fevers, chest pain, or shortness of breath. He does have some abdominal discomfort that is mild. He is currently not having any bowel movements at this time. He is n.p.o. for surgery today. OBJECTIVE: Vital Signs: Temperature 97.7, heart rate 97, respiratory rate 20, O2 saturation 94% on 5 L nasal cannula. Generally, the patient is awake, alert, oriented, in no acute distress. HEENT: NG tube in place to low intermittent wall suction. Moist mucous membranes. Neck: No JVD, lymphadenopathy. Cardiac: Regular rate and rhythm. No murmurs. Lungs clear to auscultation bilaterally. Abdomen: Ventral hernia with tympany anteriorly in the abdomen, distended, more firm today than previously. No rebound or guarding. Extremities: No clubbing , cyanosis, or edema. Neuro: Nonfocal. LABORATORY DATA: Labs from last evening shows a white count of 14.9, hemoglobin 12.2, platelets of 389,000. Sodium 139, potassium 3.3, chloride of 100, bicarb 23. BUN 7, creatinine of 0.4. KUB from last evening showed diffuse bilateral infiltrates, worse on the left. No new consolidation. ASSESSMENT AND PLAN: 1. Mr. Olvera is a 63-year-old gentleman who was admitted with recurrent small bowel obstruction, status post NG tube decompression and discontinuation. Previously, that was not tolerated requiring replacement of tube and re-initiation of n.p.o. status. Small bowel follow-through yesterday shows persistent small bowel obstruction, and the patient is n.p.o. for surgical repair of his ventral hernia as well as small bowel obstruction and possible revision of his gastric bypass. For his small bowel obstruction, the patient is n.p.o. for surgery today. NG tube is in place. Defer postsurgical management to surgery team. 2. Gastroesophageal reflux disease. Continue proton pump inhibitor. 3. History of gastric bypass. Surgical revision as per surgery team. 4. Pneumonia appears stable. Currently is on antibiotics as per primary team. O2 requirements have been unchanged. 5. Upper GI bleeding with coffee-ground emesis. Hemoglobin remains stable. No transfusion requirements. 6. Hypokalemia: Recommend correcting his low potassium. We will follow with you. Please call with any questions or concerns. MTDD
--- NOTE | 2018-09-26 11:24 | INFECTIOUS DISEASE PROGRESS NO ---
DATE: 09/26/2018 PRESENT ILLNESS: The patient has a bilateral pneumonia, which I think is due to aspiration because the patient has a small bowel obstruction. MEDICATIONS: This is the fifth day of treatment with the combination of cefepime and Zyvox. PHYSICAL EXAMINATION: Vital Signs: Temperature is 97.7 degrees, pulse 97, respirations 20, blood pressure 152/95. General: This is an ill-appearing middle-aged male. He is in no acute distress. Head/eyes/ears/nose/throat: He can hear my spoken words and see near objects. He does not have any white patches on his tongue. Neck: No meningismus. Abdomen: Soft and not tender. There is a large abdominal wall hernia present. Neurologic: Patient is alert. He can move his extremities. There is no tremor. Integument: No rash noted. LAB AND X-RAY: The CBC shows a white count of 14,960, hemoglobin 12.2, and platelet count 389,000. Creatinine is 0.4. GFR is greater than 60. Chest x-ray shows bilateral infiltrates. Procalcitonin level is 0.47, which means it is likely the patient has pneumonia. ASSESSMENT AND PLAN: The patient still has his presumed obstruction. He will be taken back to surgery today by Dr. Vickers. As regarding the patient's pulmonary infiltrates, I think he does have pneumonia and I plan to continue with cefepime and Zyvox. COMORBIDITIES: The patient has a small bowel obstruction. He also has an abdominal wall hernia and gastroesophageal reflux disease. cc: Nestor Mabry MD
[2018-09-26] MEDS: ZYVOX 600 MG/D5W 600 MG/300 ML IVPB IV SCH ×2 (13:07→22:10)
[2018-09-26] MEDS: MIRALAX NG SCH ×2 (13:08→20:27)
[2018-09-26] MEDS: DULCOLAX PR SCH (13:08)
--- NOTE | 2018-09-26 13:16 | PROGRESS NOTE ---
DATE: 09/26/2018 SUBJECTIVE: The patient is resting comfortably in bed. He has an NG tube to low intermittent suction. He continues to complain of abdominal pain. OBJECTIVE: Vital Signs: Temperature 98.2 degrees, blood pressure 150/92, heart rate 88, respirations 20, and O2 saturations 94% on 5 L nasal cannula. General: This is a chronically ill- appearing elderly male lying in bed in no acute distress. Heart: S1, S2. Normal. Lungs: Coarse breath sounds bilaterally. Abdomen: Positive bowel sounds. Soft. Diffuse tenderness. Extremities: No edema. No cyanosis. Neurologic: The patient is alert and oriented x3. LABORATORY: White blood cell count 14, hemoglobin 12, hematocrit 35, and platelets 389,000. Sodium 139, potassium 3.3, chloride 100, CO2 23, BUN 7, creatinine 0.4, glucose 123, magnesium 1.7, and phosphorus 3.1. Chest x-ray shows diffuse bilateral infiltrates worse on the left. ASSESSMENT AND PLAN: 1. Small bowel obstruction. The patient is scheduled to undergo surgery today. 2. Acute hypoxemic respiratory failure. The patient has pneumonia and possible pulmonary edema. We will continue with antibiotic therapy as directed by Dr. Mabry. 3. Paroxysmal atrial fibrillation. The patient is rate controlled. 4. Hypokalemia. The patient is refusing IV potassium supplementation. 5. Leukocytosis. Slightly improved. Continue with IV antibiotic therapy. 6. DVT prophylaxis. Continue with SCD's. cc: Preeti Bunn MD MTDD
--- NOTE | 2018-09-26 13:18 | Diag Imaging Result Doc PS360 ---
EXAM: SMALL BOWEL SERIES ONLY HISTORY: small bowel obstruction TECHNIQUE: 16 films submitted. COMPARISON: None. FINDINGS: The original dictation was lost. Films submitted for redictation at 1:15 PM on 09/26/2018. The immediate film shows contrast in the proximal and distal colon. Early films show new contrast in markedly dilated proximal small bowel loops. There are multiple other dilated small bowel loops in the mid abdomen which slowly filled with contrast. At two hours and 50 minutes the contrast had not passed through the small bowel and entered the colon. The appearance is relatively unchanged at five hours. Delayed films at 17 hours also reveal multiple dilated small bowel loops with no filling of the colon. IMPRESSION: High-grade small bowel obstruction. Electronically signed by Corey Cox 09/26/2018 1:16 PM
[2018-09-26] MEDS: PROTONIX IV SCH ×2 (14:30→21:30)
[2018-09-26] MEDS ORDERED: SODIUM CHLORIDE 0.9% 10 ML ONE (15:21)
[2018-09-26] MEDS ORDERED: DIPRIVAN 1% ONE (15:21)
[2018-09-26] MEDS ORDERED: QUELICIN (DOSE) ONE (15:21)
[2018-09-26] MEDS ORDERED: NORCURON ONE (15:21)
[2018-09-26] MEDS ORDERED: XYLOCAINE-MPF 2% ONE (15:21)
[2018-09-26] MEDS ORDERED: FENTANYL ONE (18:05)
[2018-09-26] MEDS ORDERED: MORPHINE PCA IV PRN (18:47)
[2018-09-26] MEDS ORDERED: NARCAN IV PRN (18:47)
[2018-09-26] MEDS ORDERED: MORPHINE PCA ONE (18:48)
[2018-09-26] MEDS ORDERED: MORPHINE ONE ×2 (18:48→19:20)
[2018-09-26] MEDS ORDERED: LR 1,000 ML ONE (19:21)
[2018-09-26] MEDS: DESYREL PO SCH (20:27)
[2018-09-26] MEDS: COLACE PO SCH (20:27)
--- NOTE | 2018-09-26 23:18 | OPERATIVE NOTE ---
PROCEDURE DATE: 09/26/2018 PREOP DIAGNOSIS: Small-bowel obstruction. POSTOP: Small-bowel obstruction. PROCEDURE PERFORMED: 1. Exploratory laparotomy. 2. Lysis of adhesions. 3. Small-bowel resection. 4. Primary repair of incisional hernia. ANESTHESIA: General. ESTIMATED BLOOD LOSS: 50 mL. SPECIMENS: Small bowel. INDICATION: This is a gentleman with history of gastric bypass. He also within the years required exploratory laparotomy with lysis of adhesions for high-grade bowel obstruction. He presents back now with high-grade obstruction. OPERATIVE FINDINGS: There was an upper midline hernia with no incarcerated bowel. There was a Michael-en-Y gastric bypass anatomy. There was dense intraabdominal adhesions with very fibrotic bands. There was very tight adhesion distal to the jejunojejunostomy that had focally strangulated the bowel and caused a focal very much thinning and ultimate perforation after lysis of adhesions. OPERATIVE NOTE: Risks, benefits, alternatives discussed patient, he consented procedure, seen preoperatively and surgical site was confirmed, was taken the operating room placed supine position. General anesthesia induced without complication. All bony prominences padded. Abdomen prepped chlorhexidine solution draped usual fashion. After time-out we made a lower midline incision through an area of virgin abdominal wall and entered the abdomen open controlled fashion. We then continued this up to opening the hernia sac and gaining wide exposure. We then starting distally progressing proximally again lysis of adhesions. We started the terminal ilium and identified after lysing the adhesions the jejunojejunostomy, his alimentary limb and his biliopancreatic limb. Again we noted some atypical anatomy where the biliopancreatic limb passed underneath the alimentary limb through the what would be [place] space and was anastomosed on the right side of the abdomen. Again there was no obstruction related this obstruction was distal. There was a tight band that was strangulated in small-bowel focally. We lysed this band and noted that the serosa had been very thin and that there was a small perforation here. As such we oversewed this and elected to perform a small bowel resection. After confirming our anatomy and lysing all the intra loop adhesions we scored the mesentery, divided the bowel proximally with a blue load ANT stapler distally and the mesentery was taken with a LigaSure device. Stapled [id number] functional end-to-end anastomosis was created, we did closed the common enterotomy with another fire of the stapler and we imbricated all the staple lines. The proximal bowel was very dilated. The distal bowel was normal caliber. There was somewhat a size mismatch but we felt we had created an adequate anastomosis no tension and adequate perfusion. At this point we copiously irrigated the abdomen then had to free up his fascia back to healthy fascia and through the hernia sac to close this hernia defect. This did take substantially more time than a normal abdominal closure. Using a #1 looped PDS suture we closed the fascia along the midline with interrupted 0 Vicryl retention sutures. We changed our gloves prior to this. Hemostasis was noted prior to abdominal closure and all of her lap counts were preliminarily correct. After irrigating the superficial wound we closed the skin. Final counts were correct x2. NG tube was confirmed to be in good position. He was woken transferred to recovery. We will continue his resuscitation. cc: Facundo Vickers MD
[2018-09-27] MEDS: ATROVENT NEB INH SCH ×6 (00:09→19:58)
[2018-09-27] MEDS: XOPENEX NEB INH SCH ×6 (00:09→19:58)
[2018-09-27] MEDS: LR 1,000 ML IV SCH ×6 (01:48→22:38)
[2018-09-27] MEDS: LOPRESSOR IV SCH ×3 (02:43→17:31)
[2018-09-27 05:17] LABS: ALLEN TEST YES; BE 0.1 mmoll (-3.0-3.0); BLOOD TYPE ARTERIAL; METHB 0.8 % (0.0-1.5); O2(CT) 18.7 mL/dL (15.0-23.0); O2HB 96.5 % (95.0-99.0); PCO2(98.6) 39 mmHg (35-45); PO2(98.6) 156 mmHg (60-100); SAMPLE BLOOD; SAO2 98.9 % (95.0-100.0); THB 13.6 g/dL (11.5-17.4); pH(98.6) 7.41 (7.35-7.45)
[2018-09-27 05:18] LABS: MODALITY NRB
[2018-09-27] MEDS: LOVENOX SUBQ SCH (05:37)
[2018-09-27 05:56] LABS: BASO% 0.6 % (0.0-0.8); EOS# 0.18 X1000 (0.0-0.7); HEMOGLOBIN 13.4 g/dL (14.0-18.0); IMM GRAN# 0.78 X1000 (0.0-0.04); IMM GRAN% 4.5 % (0.0-0.5); LYMPH# 0.76 X1000 (1.2-3.4); LYMPH% 4.4 % (20.5-51.1); MCH 32.7 PG (27-31); MCHC 34.4 g/dL (33-37); MCV 95.1 FL (81-99); MONO% 8.1 % (1.7-9.3); MPV 9.5 FL (7.4-10.4); NEUT# 14.15 X1000 (1.4-6.5); NEUT% 81.4 % (42.2-75.2); PLT 459 X1000 (130-400); WBC 17.37 X1000 (4.8-10.8)
[2018-09-27 06:35] LABS: AGAP 12; ALB/GLOB RATIO 0.8; ALBUMIN 2.4 g/dL (3.5-5.0); ALKALINE PHOSPHATASE 78 U/L (32-122); BUN 8 mg/dL (8-22); CALCIUM 7.8 mg/dL (8.8-10.2); CHLORIDE 102 mmol/L (98-107); COSMO 276; CREATININE 0.3 mg/dL (0.7-1.2); ESTIMATED GFR > 60; GLUCOSE 131 mg/dL (70-104); GOT 12 U/L (10-34); GPT 5 U/L (10-44); MAGNESIUM 1.5 mg/dL (1.5-2.7); PHOSPHORUS 3.7 mg/dL (2.7-4.5); POTASSIUM 3.8 mmol/L (3.5-5.1); SODIUM 138 mmol/L (136-145); TCO2 24 mmol/L (25-35); TOTAL BILIRUBIN 0.44 mg/dL (0.20-1.00); TOTAL PROTEIN 5.6 g/dL (6.3-8.3)
[2018-09-27 06:36] LABS: EOS 2 % (1-10); LYMPHS 4 % (21-51); MONO 2 % (1-9); SEGS 92 % (42-75)
[2018-09-27] MEDS ORDERED: MAGNESIUM SULFATE 2 GM/S.W.I. 2 GM/50 ML IVPB IV ONE (06:42)
--- NOTE | 2018-09-27 07:11 | Diag Imaging Result Doc PS360 ---
EXAM: CHEST-PORTABLE HISTORY: post op TECHNIQUE: Chest single view COMPARISON: 09/26/2018 FINDINGS: There are dense bilateral infiltrates. These are more pronounced than on the prior study. Poor inspiratory effort. No cardiomegaly. Questionable trace pleural fluid. IMPRESSION: Mild interval worsening. '. Electronically signed by Corey Cox 09/27/2018 7:09 AM
[2018-09-27] MEDS: PULMICORT INH SCH ×2 (07:33→19:59)
[2018-09-27] MEDS: ZYVOX 600 MG/D5W 600 MG/300 ML IVPB IV SCH ×2 (09:45→22:38)
[2018-09-27] MEDS: PROTONIX IV SCH ×2 (09:58→20:44)
[2018-09-27] MEDS: MAXIPIME 2 GM in NS 100 ML IV SCH ×2 (10:00→20:44)
--- NOTE | 2018-09-27 10:11 | GENERAL SURGERY PROGRESS NOTE ---
DATE: 09/27/2018 SUBJECTIVE: The patient seems to be doing okay. OBJECTIVE: Vital Signs: Patient is currently afebrile. His vital signs have been stable. He does have a little low-grade tachycardia in the 100s. General: No acute distress. Cardiovascular: Some mild tachycardia. Lungs: Some coarse sounds noted. Abdomen soft, appropriately tender. NG tube in place with 600 recorded out. LABORATORY: White blood cell count 17, hematocrit 39, platelet count 459,000. ABG reviewed and remainder of labs reviewed. ASSESSMENT AND PLAN: A 63-year-old status post exploratory laparotomy with small bowel resection and primary repair of incisional hernia. Postoperative state. At this time, the patient seems to be doing okay. I would like to keep the NG tube in place. I think his leukocytosis is reactive from the stress of the surgery, will continue to monitor. If he seems to do okay from a surgical point of view, he could probably be transferred to the floor because his respiratory status has been relatively stable but will defer to the hospitalist. cc: Jimmy Pope MD MTDD
[2018-09-27] MEDS: MORPHINE IV PRN ×5 (11:22→23:49)
--- NOTE | 2018-09-27 14:42 | PULMONOLOGY CONSULTATION ---
DATE: 09/27/2018 REQUESTING PHYSICIAN: Dr. Preeti Bunn. REASON FOR CONSULTATION: Respiratory failure. HISTORY OF PRESENT ILLNESS: Mr. Olvera is a 63-year-old white male with a prior Michael-en-Y gastric bypass, who has had difficulty with small bowel obstructions. He has previously undergone lysis of adhesions. The patient was admitted to the hospital on 09/21/2018 with a small bowel obstruction. Chest x-ray on admission revealed some chronic changes seen on prior film but with minimal new infiltrates. The patient was treated conservatively for his small bowel obstruction. He did have episodes of nausea and vomiting with removal of his NG tube, and this was subsequently replaced. The patient went to the operating room yesterday for lysis of adhesions with repair of an incisional hernia and small bowel resection. He is now awake, alert, and conversant. He has a fair-to- adequate cough. He is currently on nasal cannula. PAST MEDICAL HISTORY: Problem List: 1. History of gastric bypass as per above. 2. Admission to this hospital in 12/2017 with small bowel obstruction, aspiration pneumonia, and gram negative pneumonia (Enterobacter cloacae complex). 3. History of left hip arthroplasty. 4. History of daily alcohol use. 5. Gastroesophageal reflux. 6. Bilateral lower extremity neuropathy. 7. Hypertension. SOCIAL HISTORY: Prior tobacco use noted. Daily alcohol noted on prior admission. REVIEW OF SYSTEMS: Notable for abdominal tenderness, dry mouth, cough, dyspnea with movement. Review of systems, otherwise, negative. PHYSICAL EXAMINATION: General: Exam reveals a well-developed, well-nourished male who appears his stated age. The patient has been afebrile for the last 24 hours. Vital Signs: Blood pressure 140/89, heart rate 95, respiratory rate 16, oxygen saturation 92% on 5 L per nasal cannula. HEENT: Pupils are equal and reactive. Oropharynx is clear but dry. Neck: Supple. Chest: Reveals scattered rhonchi bilaterally. Cardiac Exam: S1-S2. Abdomen: Soft with surgical dressings in place. Extremities: Without edema. LABORATORY DATA: White blood count 17.37, hemoglobin 13.4, platelet count 459,000. Sodium 138, potassium 3.8, chloride 102, bicarbonate 24. BUN 8, creatinine 0.3. Total protein 5.6. Albumin 2.4. Arterial blood gas on non-rebreather this morning: pH 7.41, pCO2 of 39, PO2 of 156 with an AA gradient of 508. Chest x-ray reveals bilateral infiltrates, slightly more pronounced than 09/26/2018. IMPRESSION: A 63-year-old who presented with 1. Small bowel obstruction, who has had nausea and vomiting. 2. Aspiration pneumonia. 3. Acute hypoxemic respiratory failure. The patient has undergone lysis of adhesions, and it is hoped that his GI tract will begin functioning in the next few days. RECOMMENDATIONS: 1. Continue antibiotics per Infectious Disease. 2. Continue bronchial hygiene. The patient was encouraged to use his incentive spirometer. 3. Continue oxygen for hypoxemic respiratory failure. 4. Oral intake management per surgery pending improvement in bowel function. cc: Tam Mendiola MD
[2018-09-27 16:49] LABS: URINE SOURCE CATH
[2018-09-27 16:52] LABS: BILIRUBIN URINE NEGATIVE (NEGATIVE); BLOOD URINE SMALL (NEGATIVE); COLOR YELLOW; GLUCOSE URINE 200 mg/dL (NEGATIVE); KETONE URINE 60 mg/dL (NEGATIVE); LEUKOCYTES URINE NEGATIVE (NEGATIVE); NITRITE URINE NEGATIVE (NEGATIVE); PROTEIN URINE 100 mg/dL (NEGATIVE); SP GRAVITY URINE 1.024; TURBIDITY URINE CLEAR (CLEAR); UROBILINOGEN URINE NORMAL (NORMAL)
[2018-09-27 16:54] LABS: UR EPITHELIAL CELLS <10 /HPF (<10); URINE BACTERIA NEGATIVE /HPF; URINE RBC <10 /HPF (<10); URINE WBC <10 /HPF (<10)
[2018-09-27 17:12] LABS: URINE CASTS GRANULAR PRESENT; URINE CRYSTALS NONE SEEN; URINE YEAST NONE SEEN
--- NOTE | 2018-09-27 19:39 | PROGRESS NOTE ---
DATE: 09/27/2018 SUBJECTIVE: The patient is resting comfortably, he complains of abdominal pain. OBJECTIVE: Vital signs: Temperature 98.4 degrees, blood pressure 134/84, heart rate 100, respirations 19, O2 saturations 92% on 5 L nasal cannula. General: This is a chronically ill- appearing elderly male lying in bed in no acute distress. Heart: S1, S2 normal, tachycardic. Lungs: Equal air entry bilaterally. No crackles, no rales. Abdomen: Positive bowel sounds. Soft, nontender, nondistended. Extremities: No edema, no cyanosis. Neuro: The patient is alert and oriented x3. LABS: White blood cell count 17, hemoglobin 13, hematocrit 39, platelets 459,000, sodium 138, potassium 3.8, chloride 102, CO2 24, BUN 8, creatinine 0.3, glucose 131, calcium 7.8, phosphorus 3.7, magnesium 1.5. ASSESSMENT AND PLAN: 1. Acute hypoxemic respiratory failure. Continue with treatment for aspiration pneumonia. Pulmonary has been consulted. 2. Aspiration pneumonia. Continue with antibiotic therapy and bronchodilator therapy. 3. Status post exploratory laparotomy with lysis of adhesions and small bowel resection. Management as per the general surgeon. 4. Hypomagnesemia. Will replace the patient's magnesium. 5. Hypertension. Continue on IV Lopressor. 6. Gastrointestinal prophylaxis. Continue on IV Protonix. 7. Deep vein thrombosis prophylaxis. Continue on Lovenox. cc: Preeti Bunn MD
[2018-09-28] MEDS: XOPENEX NEB INH SCH ×7 (00:20→23:02)
[2018-09-28] MEDS: ATROVENT NEB INH SCH ×7 (00:20→23:02)
[2018-09-28] MEDS: LOPRESSOR IV SCH ×3 (02:37→17:38)
[2018-09-28] MEDS: MORPHINE IV PRN ×8 (02:37→23:25)
[2018-09-28] MEDS: LOVENOX SUBQ SCH (05:37)
[2018-09-28 06:42] LABS: AGAP 12; ALBUMIN 2.2 g/dL (3.5-5.0); BUN 7 mg/dL (8-22); CALCIUM 7.3 mg/dL (8.8-10.2); CHLORIDE 103 mmol/L (98-107); COSMO 276; CREATININE 0.3 mg/dL (0.7-1.2); ESTIMATED GFR > 60; GLUCOSE 106 mg/dL (70-104); MAGNESIUM 1.7 mg/dL (1.5-2.7); PHOSPHORUS 2.5 mg/dL (2.7-4.5); POTASSIUM 3.3 mmol/L (3.5-5.1); SODIUM 139 mmol/L (136-145); TCO2 24 mmol/L (25-35)
[2018-09-28 06:57] LABS: BASO# 0.11 X1000 (0.0-0.2); BASO% 0.9 % (0.0-0.8); EOS# 0.36 X1000 (0.0-0.7); EOS% 2.9 % (0.0-10.0); HEMATOCRIT 33.9 % (42.0-52.0); HEMOGLOBIN 11.3 g/dL (14.0-18.0); IMM GRAN# 0.43 X1000 (0.0-0.04); IMM GRAN% 3.5 % (0.0-0.5); LYMPH# 0.82 X1000 (1.2-3.4); LYMPH% 6.7 % (20.5-51.1); MCH 32.1 PG (27-31); MCHC 33.3 g/dL (33-37); MCV 96.3 FL (81-99); MONO# 1.07 X1000 (0.11-0.59); MONO% 8.7 % (1.7-9.3); MPV 9.5 FL (7.4-10.4); NEUT# 9.48 X1000 (1.4-6.5); NEUT% 77.3 % (42.2-75.2); PLT 440 X1000 (130-400); RBC 3.52 XMIL (4.7-6.1); RDW 12.1 % (11.5-14.5); WBC 12.27 X1000 (4.8-10.8)
[2018-09-28 07:25] LABS: EOS 6 % (1-10); LYMPHS 10 % (21-51); MONO 4 % (1-9); SEGS 80 % (42-75)
--- NOTE | 2018-09-28 07:48 | Diag Imaging Result Doc PS360 ---
EXAM: CHEST-PORTABLE - 09/28/2018 HISTORY: post op TECHNIQUE: Portable chest COMPARISON: 09/27/2018 FINDINGS: Nasogastric tube remains in place. Heart size appears within normal limits. There are bilateral infiltrates, most prominent on the left. Compared to prior, these appear stable on the left and decreased on the right. There is a small left pleural effusion. There is no pneumothorax identified. IMPRESSION: Bilateral infiltrates, most prominent on the left. Compared to prior, these appear stable on the left and decreased on the right. Small left pleural effusion. Electronically signed by Ephraim Davey 09/28/2018 7:46 AM
[2018-09-28] MEDS ORDERED: POTASSIUM PHOSPHATE 50 MMOL in NS 250 ML IV ONE (08:00)
[2018-09-28] MEDS: PULMICORT INH SCH ×2 (08:00→18:50)
--- NOTE | 2018-09-28 08:00 | GENERAL SURGERY PROGRESS NOTE ---
DATE: 09/28/2018 SUBJECTIVE: The patient seems to be doing okay. OBJECTIVE: Vital Signs: The patient is currently afebrile. It looks like his vital signs have been stable. General Examination: No acute distress. Resting comfortably. NG tube in place. Cardiovascular: Regular rate and rhythm. Lungs: Some coarse sounds noted. Abdomen: Soft, appropriately tender. Binder in place. Hypoactive bowel sounds. Laboratory: Reviewed. White blood cell count is 12, hematocrit 33, platelet count 440,000. Remainder of labs reviewed. ASSESSMENT AND PLAN: A 63-year-old status post exploratory laparotomy with small bowel resection, primary repair of incisional hernia. Postoperative state. At this time, the patient seems to be doing okay. I want to keep his nasogastric tube in place until he starts to have some return of bowel function. I think he could potentially be transferred to the floor from a surgical point of view but we will defer to the hospitalist and pulmonary as far as his respiratory status. cc: Jimmy Pope MD
[2018-09-28] MEDS ORDERED: MAGNESIUM SULFATE 2 GM/S.W.I. 2 GM/50 ML IVPB IV ONE (08:01)
[2018-09-28] MEDS: LR 1,000 ML IV SCH ×4 (08:47→21:47)
[2018-09-28] MEDS: PROTONIX IV SCH ×2 (08:48→20:30)
[2018-09-28] MEDS: ROBAXIN 1,000 MG in NS 50 ML IV SCH ×3 (08:48→23:25)
[2018-09-28] MEDS: MAXIPIME 2 GM in NS 100 ML IV SCH ×2 (08:48→20:30)
[2018-09-28] MEDS: ZYVOX 600 MG/D5W 600 MG/300 ML IVPB IV SCH ×2 (10:30→21:47)
--- NOTE | 2018-09-28 14:46 | PULMONOLOGY PROGRESS NOTE ---
DATE: 09/28/2018 SUBJECTIVE: The patient is awake, alert, and conversant. He is sitting in a chair. He does have a cough productive of some sputum production. He is not yet having flatus. OBJECTIVE: Vital Signs: Blood pressure 141/92, heart rate 91, respiratory rate 17, oxygen saturation 95% on 5 L per nasal cannula. HEENT: Pupils are equal and reactive. Oropharynx is clear. Neck: Supple. Chest: Reveals occasional rhonchi bilaterally without wheezing or tactile fremitus. Cardiac: S1, S2. Abdomen: Soft with surgical dressings in place. No bowel sounds appreciated. Extremities: Without edema. LABORATORIES: Chest x-ray reveals bilateral infiltrates with slight improvement on the right and a small left-sided effusion. White blood count 12.27, hemoglobin 11.3, platelet count 440,000. Chemistry: Sodium 139, potassium 3.3, chloride 103, bicarb 24, BUN 7, creatinine 0.3, albumin 2.2. IMPRESSION: This is a 63-year-old with a small bowel obstruction, nausea and vomiting, aspiration pneumonia, acute hypoxemic respiratory failure. The patient has undergone lysis of adhesions and he has had marginal improvement in his pulmonary status. RECOMMENDATIONS: 1. Continue antibiotics. 2. Continue bronchial hygiene. 3. Wean oxygen as tolerated. 4. P.o. intake to be managed by General Surgery pending improvement in bowel function. cc: Tam Mendiola MD
--- NOTE | 2018-09-28 15:11 | PROGRESS NOTE ---
DATE: 09/28/2018 SUBJECTIVE: The patient states that he has muscle spasms intermittently and continues to complain of abdominal pain. OBJECTIVE: Vital Signs: Temperature 98.6, blood pressure 141/92, heart rate 91, respirations 17, O2 sats 94% on 5 L nasal cannula. Urine output 800. General: This is a chronically ill- appearing elderly male lying in bed in no acute distress. Heart: S1, S2 normal. Tachycardic. Lungs: Coarse breath sounds bilaterally. Abdomen: Positive bowel sounds. Soft, nontender, nondistended. Extremities: 1+ edema. No cyanosis. No calf tenderness. Neurologic: The patient is alert and oriented x 3. LABS: White blood cell count 12, hemoglobin 11, hematocrit 33, platelets 440,000. Sodium 139, potassium 3.3, chloride 103, CO2 24, BUN 7, creatinine 0.3, glucose 106, phosphorus 2.5, magnesium 1.7. ASSESSMENT AND PLAN: 1. Acute hypoxemic respiratory failure. Multifactorial. 2. Aspiration pneumonia. Continue with antibiotics and bronchodilator therapy. Pulmonary is following. 3. Status post exploratory laparotomy with lysis of adhesions and small bowel resection. Management as per the general surgeon. 4. Hypokalemia. Will replace the patient's potassium. 5. Hypertension. Continue on IV Lopressor. 6. Leukocytosis. Improved. Continue with antibiotic therapy. 7. Hypophosphatemia. Will replace the patient's phosphorus. 8. GI prophylaxis. Continue on Protonix. 9. DVT prophylaxis. Continue on Lovenox. cc: Preeti Bunn MD
[2018-09-29] MEDS: LOPRESSOR IV SCH ×3 (02:41→18:25)
[2018-09-29] MEDS: MORPHINE IV PRN ×7 (02:42→21:37)
[2018-09-29] MEDS: XOPENEX NEB INH SCH ×6 (03:44→22:49)
[2018-09-29] MEDS: ATROVENT NEB INH SCH ×6 (03:44→22:49)
[2018-09-29] MEDS: LOVENOX SUBQ SCH (05:31)
[2018-09-29 06:57] LABS: BASO# 0.14 X1000 (0.0-0.2); EOS# 0.34 X1000 (0.0-0.7); EOS% 2.5 % (0.0-10.0); HEMATOCRIT 32.3 % (42.0-52.0); HEMOGLOBIN 10.8 g/dL (14.0-18.0); IMM GRAN% 3.6 % (0.0-0.5); LYMPH# 0.83 X1000 (1.2-3.4); LYMPH% 6.1 % (20.5-51.1); MCH 32.2 PG (27-31); MCHC 33.4 g/dL (33-37); MCV 96.4 FL (81-99); MONO# 0.87 X1000 (0.11-0.59); MONO% 6.3 % (1.7-9.3); MPV 8.9 FL (7.4-10.4); NEUT# 11.03 X1000 (1.4-6.5); NEUT% 80.5 % (42.2-75.2); PLT 441 X1000 (130-400); RBC 3.35 XMIL (4.7-6.1); RDW 12.2 % (11.5-14.5); WBC 13.71 X1000 (4.8-10.8)
[2018-09-29 07:05] LABS: AGAP 13; ALBUMIN 2.2 g/dL (3.5-5.0); BUN 5 mg/dL (8-22); CHLORIDE 103 mmol/L (98-107); COSMO 277; CREATININE 0.4 mg/dL (0.7-1.2); ESTIMATED GFR > 60; GLUCOSE 105 mg/dL (70-104); MAGNESIUM 1.7 mg/dL (1.5-2.7); PHOSPHORUS 3.1 mg/dL (2.7-4.5); POTASSIUM 3.4 mmol/L (3.5-5.1); SODIUM 140 mmol/L (136-145); TCO2 24 mmol/L (25-35)
[2018-09-29] MEDS: LR 1,000 ML IV SCH ×2 (07:22→18:26)
--- NOTE | 2018-09-29 07:27 | EKG Report ---
Test Performed on : 09/26/2018 11:57:06 PM Test Reason : Tachycardia Blood Pressure : / mmHG Vent. Rate : 123 BPM Atrial Rate : 123 BPM P-R Int : 146 ms QRS Dur : 080 ms QT Int : 302 ms P-R-T Axes : 058 054 039 degrees QTc Int : 432 ms Sinus tachycardia. Otherwise normal ECG When compared with ECG of 21-SEP-2018 04:47, (Unconfirmed) Nonspecific T wave abnormality no longer evident in Inferior leads Confirmed by Suleiman FIGUEROA, Yong Monaco ([id number]) on 09/29/2018 8:21:09 AM
[2018-09-29 07:50] LABS: BANDS 6 % (0-1); EOS 2 % (1-10); LYMPHS 12 % (21-51); MONO 6 % (1-9); SEGS 74 % (42-75)
[2018-09-29] MEDS ORDERED: POTASSIUM CHLORIDE 60 MEQ in NS 500 ML IV ONE (07:50)
[2018-09-29] MEDS ORDERED: MAGNESIUM SULFATE 2 GM/S.W.I. 2 GM/50 ML IVPB IV ONE (07:50)
[2018-09-29] MEDS ORDERED: LASIX IV ONE (07:50)
[2018-09-29] MEDS ORDERED: LR 1,000 ML IV SCH (08:00)
[2018-09-29] MEDS: PULMICORT INH SCH ×2 (08:12→19:05)
[2018-09-29] MEDS: ROBAXIN 1,000 MG in NS 50 ML IV SCH ×3 (08:33→23:17)
[2018-09-29] MEDS: MAXIPIME 2 GM in NS 100 ML IV SCH ×2 (08:34→19:48)
[2018-09-29] MEDS: PROTONIX IV SCH ×2 (08:34→21:10)
--- NOTE | 2018-09-29 08:52 | Diag Imaging Result Doc PS360 ---
EXAM: CHEST-PORTABLE HISTORY: dyspnea TECHNIQUE: Portable chest single view COMPARISON: 09/28/2018 FINDINGS: There are dense infiltrates throughout the left lung and smaller infiltrates throughout the right lung. These are fairly similar to the prior study. No cardiomegaly. There is a small left pleural effusion with basilar atelectasis. A nasogastric tube overlies the esophagus and stomach. IMPRESSION: No interval improvement. Electronically signed by Corey Cox 09/29/2018 8:50 AM
--- NOTE | 2018-09-29 09:00 | INFECTIOUS DISEASE PROGRESS NO ---
DATE: 09/29/2018 PRESENT ILLNESS: The patient has a bilateral pneumonia which I think is due to aspiration from the patient's small bowel obstruction. MEDICATIONS: This is the 8th day of treatment with a combination of cefepime and Zyvox. PHYSICAL EXAMINATION: Vital Signs: Temperature is 98.8 degrees, pulse 68, respirations 20, blood pressure 170/80. General: This is an ill-appearing, middle-aged male. He has an NG tube in place. He is in no acute distress. Head, Eyes, Ears, Nose, and Throat: As mentioned above, he has a nasogastric tube in place. He can hear my spoken words and see near objects. He does not have any white patches on his tongue. Neck: No stiffness. Lungs: Clear to auscultation. Cardiovascular: Heart rate is regular. Abdomen: The patient's abdominal incision is intact. The abdomen is soft. Neurologic: The patient is alert. He can move his extremities. There is no tremor. Integument: No rash noted. LAB AND X-RAY: Chest x-ray shows improvement of the pulmonary infiltrate. The CBC shows a white count of 13,710, hemoglobin 10.8, and platelet count 441,000. Creatinine is 0.4. GFR is greater than 60. Sputum grew normal florae and yeast. ASSESSMENT AND PLAN: The patient has aspiration pneumonia. He is status post lysis of adhesions performed by Dr. Vickers last week. My plan is to continue treatment with the current antibiotics, namely cefepime and Zyvox. At surgery, Dr. Vickers fixed the abdominal wall hernia. COMORBIDITIES: Small bowel obstruction, an abdominal wall hernia, and gastroesophageal reflux disease. cc: Nestor Mabry MD
[2018-09-29] MEDS ORDERED: KLOR-CON PO ONE (10:12)
[2018-09-29] MEDS: ZYVOX 600 MG/D5W 600 MG/300 ML IVPB IV SCH ×2 (10:37→23:17)
[2018-09-29] MEDS: CLINIMIX E 4.25%-5% SOLUTION 1,000 ML IV SCH (10:49)
--- NOTE | 2018-09-29 13:59 | PROGRESS NOTE ---
DATE: 09/29/2018 SUBJECTIVE: The patient is resting comfortably in bed. He complains of abdominal pain and thirstiness. OBJECTIVE: Vital Signs: Temperature 98, blood pressure 129/84, heart rate 68, respirations 18, and O2 saturations 95% on 5 L nasal cannula. General: This is an elderly male lying in bed in no acute distress. Heart: S1, S2 normal. Regular rate and rhythm. Lungs: Diminished breath sounds bilaterally. No wheezing. No rales. Abdomen: Positive bowel sounds. Soft, nontender, and nondistended. Extremities: No edema. No cyanosis. Neurologic: The patient is alert and oriented x3. LABORATORY: White blood cell count 13, hemoglobin 10, hematocrit 32, and platelets 441,000. Sodium 140, potassium 3.4, chloride 103, CO2 24, BUN 5, creatinine 0.4 glucose 105, calcium 8, phosphorus 3.1, magnesium 1.7, and albumin 2.2. ASSESSMENT AND PLAN: 1. Acute hypoxemic respiratory failure. Continue with pulmonary toiletry and antibiotic therapy. 2. Aspiration pneumonia. Continue with antibiotics and bronchodilator therapy. 3. Status post exploratory laparotomy with lysis of adhesions and small bowel resection. Management as per the general surgeon. 4. Hypokalemia. We will replace the patient's potassium. 5. Hypertension. Continue on IV Lopressor. 6. Hypomagnesemia. We will replace the patient's magnesium. 7. Deep vein thrombosis prophylaxis. Continue on Lovenox. cc: Preeti Bunn MD
--- NOTE | 2018-09-29 23:29 | GENERAL SURGERY PROGRESS NOTE ---
DATE: 09/29/2018 SUBJECTIVE: Started passing flatus. NG tube output has been minimal. He has been hemodynamically stable, no fevers. Pulse in the 60s, blood pressure 120s over 80s, oxygen saturation low to mid 90s on 5 L. General. He is alert. Abdomen soft. Incision is intact. LAB: White count 13, hematocrit 32, creatinine is 0.4, potassium 3.4, albumin is low at 2.2. ASSESSMENT AND PLAN: A 63-year-old woman status post exploratory laparoscopy bowel resection, will take his NG tube out, his Pascal catheter out today. I have encouraged to be out of bed. Will start him on peripheral nutrition, continue to replete electrolytes. He is refusing IV potassium. Hopefully give him some oral tomorrow. cc: Facundo Vickers MD
--- NOTE | 2018-09-30 00:36 | GASTROENTEROLOGY PROGRESS NOTE ---
DATE: 09/29/2018 SUBJECTIVE: No acute overnight events. Afebrile. Reports pain at abdominal incision. No N/V, CP, SOB. No BM or flatus. OBJECTIVE: Vital Signs: Temperature 98 heart rate 82 respiratory rate 20, O2 saturation 93% on 5 L nasal cannula. Generally, the patient is awake, alert, oriented, in no acute distress. HEENT: NG tube in place to low intermittent wall suction. Moist mucous membranes. Neck: No JVD, lymphadenopathy. Cardiac: Regular rate and rhythm. No murmurs. Lungs clear to auscultation bilaterally. Abdomen: incision with dressing that is c/d/i, bowel sounds present, diffuse moderate TTP. Extremities: No clubbing, cyanosis, or edema. Neuro: Nonfocal. LABORATORY DATA: WBC 13.7 hgb 10.8, K 3.4 albumin 2.2, Cr 0.4 CXR dense infiltrates in left lung and small infiltrates in right lung. basilar atelectasis, small left pleural effusion ASSESSMENT AND PLAN: Mr. Olvera is a 63-year-old gentleman who was admitted with recurrent small bowel obstruction POD#3 from exlap with small bowel resection, lysis of adhesion , and ventral hernia repair. He is clinically stable. On abx for aspiration PNA. Hgb stable without recurrent hematemesis. #SBO POD#3 as above - continue NGT as per surgery - plan for peripheral nutrition #PNA: on cefepime and zyvox per ID; wean O2 #Hematemesis with coffee grounds: resolved: continue PPI IV BID #Leukocytosis: trending WBC; on abx as per ID #Hypokalemia: replete lytes #Anemia: stable We will follow with you. Please call with any questions or concerns. [facility]
--- NOTE | 2018-09-30 02:01 | PULMONOLOGY PROGRESS NOTE ---
DATE: 09/29/2018 SUBJECTIVE: The patient is awake, alert, and conversant. He has a cough, which is nonproductive. He reports his abdomen has marginally improved, with decreased tenderness. He reports occasional flatus. OBJECTIVE: Vital Signs: Blood pressure 152/95, heart rate 83, respiratory rate 20, oxygen saturation 96%. HEENT: Pupils are equal and reactive. Oropharynx is clear. Neck: Supple. Chest: Reveals crackles, predominantly in the lung bases. Cardiac: S1-S2. Abdomen: Soft, with diminished bowel sounds. Extremities: Without edema. LABORATORIES: White blood count 13.7, hemoglobin 10.8, platelet count 441,000. Sodium 140, potassium 3.4, chloride 103, bicarbonate 24, BUN 5, creatinine 0.4. Chest x-ray reveals bilateral infiltrates, without improvement. Microbiology reveals no new data. IMPRESSION: A 63-year-old with small bowel obstruction, nausea and vomiting, aspiration pneumonia, with acute hypoxemic respiratory failure. Clinically, he continues to improve, but continues to have hypoxemic respiratory failure. He has had some improvement in his clinical exam from an abdomen standpoint. RECOMMENDATIONS: 1. Continue antibiotics per Infectious Disease. 2. Continue bronchial hygiene. 3. Wean oxygen as tolerated. 4. Oral intake per General Surgery recommendations. cc: Tam Mendiola MD
[2018-09-30] MEDS: LOPRESSOR IV SCH ×3 (02:45→16:46)
[2018-09-30] MEDS: MORPHINE IV PRN ×6 (03:05→22:08)
[2018-09-30] MEDS: ATROVENT NEB INH SCH ×6 (03:32→23:28)
[2018-09-30] MEDS: XOPENEX NEB INH SCH ×6 (03:32→23:28)
[2018-09-30 05:51] LABS: BASO# 0.19 X1000 (0.0-0.2); BASO% 1.5 % (0.0-0.8); EOS# 0.21 X1000 (0.0-0.7); EOS% 1.7 % (0.0-10.0); HEMATOCRIT 34.2 % (42.0-52.0); HEMOGLOBIN 11.3 g/dL (14.0-18.0); IMM GRAN# 0.36 X1000 (0.0-0.04); IMM GRAN% 2.9 % (0.0-0.5); LYMPH# 0.78 X1000 (1.2-3.4); LYMPH% 6.2 % (20.5-51.1); MCH 31.9 PG (27-31); MCV 96.6 FL (81-99); MONO% 5.5 % (1.7-9.3); MPV 9.3 FL (7.4-10.4); NEUT# 10.38 X1000 (1.4-6.5); NEUT% 82.2 % (42.2-75.2); PLT 403 X1000 (130-400); RBC 3.54 XMIL (4.7-6.1); RDW 12.1 % (11.5-14.5); WBC 12.62 X1000 (4.8-10.8)
[2018-09-30] MEDS: CLINIMIX E 4.25%-5% SOLUTION 1,000 ML IV SCH (05:52)
[2018-09-30] MEDS: LOVENOX SUBQ SCH (05:53)
[2018-09-30 05:55] LABS: AGAP 11; ALBUMIN 2.3 g/dL (3.5-5.0); BUN 7 mg/dL (8-22); CHLORIDE 100 mmol/L (98-107); COSMO 274; CREATININE 0.3 mg/dL (0.7-1.2); ESTIMATED GFR > 60; GLUCOSE 142 mg/dL (70-104); MAGNESIUM 1.7 mg/dL (1.5-2.7); PHOSPHORUS 3.3 mg/dL (2.7-4.5); POTASSIUM 3.4 mmol/L (3.5-5.1); SODIUM 137 mmol/L (136-145); TCO2 26 mmol/L (25-35)
[2018-09-30 05:59] LABS: LYMPHS 4 % (21-51); SEGS 96 % (42-75)
[2018-09-30] MEDS: ROBAXIN 1,000 MG in NS 50 ML IV SCH ×3 (07:34→23:04)
[2018-09-30] MEDS: MAXIPIME 2 GM in NS 100 ML IV SCH ×2 (07:34→19:33)
[2018-09-30] MEDS: PULMICORT INH SCH ×2 (07:59→19:29)
[2018-09-30] MEDS: PROTONIX IV SCH ×2 (08:56→20:42)
[2018-09-30] MEDS: SODIUM CHLORIDE 0.9% INJ SCH (08:56)
[2018-09-30] MEDS: ZYVOX 600 MG/D5W 600 MG/300 ML IVPB IV SCH ×2 (09:38→23:03)
--- NOTE | 2018-09-30 10:56 | INFECTIOUS DISEASE PROGRESS NO ---
DATE: 09/30/2018 PRESENT ILLNESS: The patient has bilateral pneumonia, which I think is aspiration in nature. MEDICATIONS: The patient has been on cefepime and Zyvox now for 9 days. PHYSICAL EXAMINATION: Vital Signs: Temperature is 98, pulse 87, respirations 19, blood pressure 157/99. Generally, this is an ill-appearing, middle-aged male, although he does look better today since he got his NG tube out. Head/Eyes/Ears/Nose/Throat: He can hear my spoken words and see near objects. His NG tube is gone, as mentioned above. He does not have any white patches on his tongue. Neck: No stiffness. Lungs clear to auscultation. Cardiovascular: Heart rate is regular. Abdomen is soft and not tender to light palpation. The incision is intact. Neurologic: The patient is alert. He can move his extremities. There is no tremor. Integument: No rash. LABORATORY DATA AND X-RAY: There is no new radiographic study. The patient's CBC shows a white count down to 12,620. Hemoglobin 11.3 and platelet count 403,000. Creatinine is 0.3. GFR is greater than 60. ASSESSMENT AND PLAN: The patient has aspiration pneumonia. I plan to continue his current antibiotics, and I will repeat his chest x-ray tomorrow morning. COMORBIDITIES: The patient had a small bowel obstruction and abdominal wall hernia, and he also has gastroesophageal reflux disease. cc: Nestor Mabry MD
--- NOTE | 2018-09-30 12:01 | GASTROENTEROLOGY PROGRESS NOTE ---
DATE: 09/30/2018 SUBJECTIVE: No acute overnight events. Patient denies nausea, vomiting, fevers, chest pain, shortness of breath. NG tube was discontinued. Since yesterday, he is having flatus. No bowel movements at this point. Abdominal pain is improving. OBJECTIVE: Vital signs: Temperature 98.1 degrees, heart rate 79, respiratory rate 19, blood pressure 115/99, O2 saturation 94% on 4 L nasal cannula. Generally: Patient is awake, alert, oriented, in no acute distress. HEENT: Sclerae anicteric. Moist mucous membranes. Neck: No JVD or lymphadenopathy. Lungs: Coarse breath sounds. No wheezing. Cardiac: Regular rate and rhythm. No murmurs. Abdomen: Incision is clean, dry, intact. Minimal distention. Moderate diffuse tenderness to palpation. No rebound or guarding. Lower extremities: No clubbing, cyanosis, or edema. Neuro: Nonfocal. LABS: White count of 12.6, hemoglobin 11.3, platelets of 403,000. Sodium 137, potassium 3.4, chloride 100, CO2 of 26, BUN 7, creatinine 0.3, glucose 142, calcium 8.0, phosphorus 3.3, magnesium of 1.7, albumin 2.3. ASSESSMENT AND PLAN: Mr. Olvera is a 63-year-old gentleman, who was admitted with recurrent small bowel obstruction. He is postoperative day 3 from a exploratory laparotomy with small-bowel resection, lysis of adhesions, and ventral hernia repair. He is slowly improving. His course has been complicated by aspiration pneumonia requiring antibiotics with cefepime and Zyvox, being followed by Infectious Disease. He also had an episode of coffee-grounds emesis, and his hemoglobin has remained stable. PROBLEMS: 1. Small-bowel obstruction, postoperative day 3 as above. The patient is on peripheral nutrition with Clinimix, and advance diet as tolerated as per surgery recommendations. 2. Aspiration pneumonia on cefepime and Zyvox as per Infectious Disease. Continues to have an oxygen requirement and weaning oxygen. 3. Hematemesis with coffee-grounds, resolved. Continue proton-pump inhibitors intravenous twice a day. 4. Leukocytosis. Stable on antibiotics as per a Infectious Disease. 5. Hypokalemia. Recommend repleting lytes p.r.n. 6. Anemia, stable. We will follow with you. Please call with any questions or concerns.
[2018-09-30] MEDS ORDERED: KLOR-CON POWDER PACKET PO ONE (15:55)
--- NOTE | 2018-09-30 16:26 | PROGRESS NOTE ---
DATE: 09/30/2018 SUBJECTIVE: The patient resting in bed. Not in any obvious distress. OBJECTIVE: Vital signs: Vital signs are as follows: Temperature 98.3 degrees, pulse 88, respiratory rate 20, blood pressure 145/95, oxygen saturation is 92%. HEENT: He is atraumatic, normocephalic. Cardiovascular system: S1, S2. Respiratory system: Has evidence of good air entry bilaterally. Abdomen: Wound site is dressed. Extremities: No evidence of edema. Central nervous system: No obvious focal deficits noted. LABS: Labs are as follows: WBC 12.6, hematocrit is 34.2, with a platelet count of 403. Sodium is 137, potassium 3.4, chloride is 100, bicarbonate is 26. BUN is 7, creatinine 0.3. ASSESSMENT AND PLAN: 1. Small bowel obstruction status post exploratory laparotomy with bowel resection, lysis of adhesion, as well as ventral hernia repair. Surgeries for following: Advance diet per recommendation of Surgery. Recommend physical therapy. 2. Probable aspiration pneumonia. Continue antibiotics as recommended by Infectious Disease. The patient is currently on a combination of cefepime, as well as Zyvox. 3. Hypokalemia. Replace potassium and check magnesium level. 4. Gastrointestinal bleed. Continue patient on proton pump inhibitor. 5. Anemia. Follow up on hemoglobin, hematocrit. Transfuse packed red blood cells as needed. 6. Hypertension. Continue current regimen. 7. Deep vein thrombosis prophylaxis. Lovenox. cc: Ravinder Davila MD
[2018-09-30] MEDS: CATAPRES-TTS-1 TD SCH (19:32)
--- NOTE | 2018-09-30 19:53 | GENERAL SURGERY PROGRESS NOTE ---
DATE: 09/30/2018 SUBJECTIVE: He has had return of bowel function, tolerated his NG tube removal and low volume clear liquids. No fevers, no tachycardia, blood pressure been 140s and 160s. He is voiding. General. He is alert. Abdomen soft. Incision is intact. There is no evidence of dehiscence or recurrent hernia. White count 12, hematocrit 34, creatinine 0.3, potassium 3.4, glucose 142, albumin is 2.3. ASSESSMENT AND PLAN: This is a 63-year-old gentleman status post exploratory laparotomy. He is on Clinimix. Will advance diet to clear liquids hopefully give him soft tomorrow. I reviewed his medications, he is on prophylactic Lovenox and PPI he is on antibiotics for pneumonia as well. He is on O2 requirement but seems to be improving. Will increase his out of bed, he is in the chair currently and hopefully he will be ready to go home with improvement in his activity, may require rehab as he did previously. Will follow him along but I do think he is making progress. cc: Facundo Vickers MD
--- NOTE | 2018-09-30 20:17 | PULMONOLOGY PROGRESS NOTE ---
DATE: 09/30/2018 SUBJECTIVE: Patient is awake, alert, and conversant. He has occasional sputum production. He reports he is passing flatus. He is sitting in the bedside chair. PHYSICAL EXAMINATION: General: A well-developed, well-nourished, white male resting comfortably in no distress. Vital signs: Oxygen saturation 95% on 4 L per nasal cannula. HEENT: Pupils are equally reactive. Oropharynx is clear. Neck: Supple. Chest: Bibasilar crackles without wheezing or rhonchi. Cardiac: S1, S2. Abdomen: Soft with surgical dressings in place. Extremities: Without edema. DIAGNOSTIC DATA: White blood count 12.62, hemoglobin 11.3, platelet count 403,000. Chemistries: Sodium 137, potassium 3.4, chloride 100, bicarbonate 26, BUN 7, creatinine 0.3, glucose 142, albumin 2.3. IMPRESSION: A 63-year-old with: 1. Small-bowel obstruction. 2. Nausea and vomiting. 3. Aspiration pneumonia with acute hypoxemic respiratory failure. Sputum production continues to diminish. He is doing well on nasal cannula. He is starting to have flatus, but has not yet had a bowel movement. RECOMMENDATION: 1. Continue bronchial hygiene. 2. Wean oxygen as tolerated. 3. Continue antibiotics per Infectious Disease. 4. Follow up chest x-ray tomorrow morning. cc: Tam Mendiola MD
[2018-09-30] MEDS: DESYREL PO SCH (20:42)
[2018-10-01] MEDS: LOPRESSOR IV SCH ×3 (01:50→18:01)
[2018-10-01] MEDS: CLINIMIX E 4.25%-5% SOLUTION 1,000 ML IV SCH ×3 (01:50→23:29)
[2018-10-01] MEDS: MORPHINE IV PRN ×5 (02:46→20:51)
[2018-10-01] MEDS: XOPENEX NEB INH SCH ×6 (03:20→23:30)
[2018-10-01] MEDS: ATROVENT NEB INH SCH ×6 (03:20→23:30)
[2018-10-01] MEDS: LOVENOX SUBQ SCH (05:28)
[2018-10-01 05:35] LABS: BASO% 0.7 % (0.0-0.8); EOS# 0.27 X1000 (0.0-0.7); EOS% 1.8 % (0.0-10.0); HEMATOCRIT 37.3 % (42.0-52.0); HEMOGLOBIN 12.7 g/dL (14.0-18.0); IMM GRAN# 0.31 X1000 (0.0-0.04); IMM GRAN% 2.1 % (0.0-0.5); LYMPH# 0.82 X1000 (1.2-3.4); LYMPH% 5.5 % (20.5-51.1); MCH 32.6 PG (27-31); MCV 95.9 FL (81-99); MONO# 0.88 X1000 (0.11-0.59); MONO% 5.9 % (1.7-9.3); MPV 9.9 FL (7.4-10.4); NEUT# 12.43 X1000 (1.4-6.5); PLT 401 X1000 (130-400); RBC 3.89 XMIL (4.7-6.1); RDW 12.1 % (11.5-14.5); WBC 14.81 X1000 (4.8-10.8)
[2018-10-01 07:11] LABS: LYMPHS 16 % (21-51); MONO 6 % (1-9); SEGS 78 % (42-75)
[2018-10-01] MEDS: ROBAXIN 1,000 MG in NS 50 ML IV SCH ×3 (08:30→23:30)
[2018-10-01] MEDS: PULMICORT INH SCH ×2 (08:43→20:30)
[2018-10-01] MEDS: MAXIPIME 2 GM in NS 100 ML IV SCH ×2 (09:09→20:51)
[2018-10-01] MEDS: PROTONIX IV SCH ×2 (09:10→20:51)
--- NOTE | 2018-10-01 09:11 | INFECTIOUS DISEASE PROGRESS NO ---
DATE: 10/01/2018 PRESENT ILLNESS: The patient has a bilateral pneumonia. MEDICATIONS: This is the 10th day of treatment with a combination of cefepime and Zyvox. PHYSICAL EXAMINATION: Vital Signs: Temperature 99.2 degrees, pulse 88, respirations 20, blood pressure 152/95. General: This is an ill-appearing middle-aged male. He is in no acute distress. Head, Eyes, Ears, Nose, Throat: He can hear my spoken words and see near objects. He does not have any white patches on his tongue. Neck: No stiffness. Lungs: Clear to auscultation. Cardiovascular: Regular heart rate. Abdomen: Soft. It is not tender to light palpation. The incision is intact. Neurologic: The patient is awake. He can move his extremities. There is no tremor. Integument: No rash. LAB AND X-RAY: CBC today shows a white count of 14,810, hemoglobin 12.7, and platelet count 401,000. Chest x-ray was ordered and is pending. The patient does not have a BMP back yet today. ASSESSMENT AND PLAN: The patient has aspiration pneumonia. For now, I plan to continue the current antibiotics pending the repeat chest x-ray result. COMORBIDITIES: Small bowel obstruction, abdominal wall hernia, and gastroesophageal reflux disease. cc: Nestor Mabry MD
--- NOTE | 2018-10-01 09:21 | Diag Imaging Result Doc PS360 ---
CHEST-1 VIEW - 10/01/2018 INDICATION: pneumonia COMPARISON: 09/29/2018 FINDINGS: The nasogastric tube has been removed. There are stable ill-defined bilateral interstitial infiltrates. Stable consolidation or effusion behind the heart. Stable lucency at the left lung apex, this may represent COPD or small pneumothorax. This measures about 1.4 cm. IMPRESSION: No change from prior. Electronically signed by Kevyn Giles 10/01/2018 9:19 AM
--- NOTE | 2018-10-01 10:04 | GENERAL SURGERY PROGRESS NOTE ---
DATE: 10/01/2018 SUBJECTIVE: Bowels are functioning. He is tolerating clear liquids. No fevers. No tachycardia. OBJECTIVE: Blood pressure 152/95, oxygen saturation 96%. General: He is alert. Pulmonary: On 4 to 6 L nasal cannula. Abdomen: Soft. Incision is intact. LABORATORY: White count 14, hematocrit 37. ASSESSMENT/PLAN: A 63-year-old gentleman, status post exploratory laparotomy. He is doing well. I reviewed his chest x-ray. His exam is benign. His bowels are beginning to function. We will give him a soft diet. It is okay to go to the floor. He is on antibiotics per Infectious Disease for pneumonia, prophylactic Lovenox and PPI. cc: Facundo Vickers MD
[2018-10-01] MEDS: ZYVOX 600 MG/D5W 600 MG/300 ML IVPB IV SCH ×2 (10:26→23:30)
--- NOTE | 2018-10-01 12:48 | GASTROENTEROLOGY PROGRESS NOTE ---
DATE: 10/01/2018 SUBJECTIVE: No acute overnight events. The patient denies nausea, vomiting, fevers, chest pain. Shortness of breath is improving with mild nonproductive cough. He is tolerating a regular diet today and reports having bowel movements that are nonbloody. OBJECTIVE: Vital Signs: Temperature 99.2, heart rate 76, respiratory rate 17, blood pressure 129/91. O2 saturation 95% on 6 liters nasal cannula. General: The patient is awake, alert and oriented in no acute distress. HEENT: Sclerae anicteric. Moist mucous membranes. Neck: No JVD. No lymphadenopathy. Cardiac: Regular rate and rhythm, no murmurs. Lungs: Coarse bibasilar crackles. Normal work of breathing. Abdomen: Midline incision. Clean, dry, and intact with alvarez. Extremities: No clubbing, cyanosis or edema. Neurologic: Nonfocal. Psychiatric: Normal affect. LABORATORY DATA: White count 14.8, hemoglobin 12.7, platelets 401,000. Chest x- ray shows stable ill-defined bilateral interstitial infiltrates, stable consolidation or effusion behind the heart, stable lucency of the right lung apex. No change from prior. ASSESSMENT AND PLAN: Mr. Olvera is a 63-year-old gentleman admitted with small bowel obstruction. He is status post exploratory laparotomy with small bowel resection, lysis of adhesions and ventral hernia repair, done on 09/26/2018. He continues to improve slowly from a GI standpoint. He remains on broad spectrum antibiotics for his aspiration pneumonia, increasing leukocytes, and increasing O2 requirement noted. 1. Small bowel obstruction, status post surgical intervention. The patient is currently on a GI soft diet as per surgery. 2. Aspiration pneumonia on cefepime and Zyvox as per Infectious Disease. Will continue to trend leukocytosis and wean O2. 3. Upper gastrointestinal bleed. Hemoglobin has remained stable. Continue proton pump inhibitor twice daily. Can transition from IV p.o. when able. 4. Hypokalemia. Repeat electrolytes as needed. No chemistries done today. We will follow with you. Please call with any questions or concerns. [facility]
--- NOTE | 2018-10-01 15:14 | PROGRESS NOTE ---
DATE: 10/01/2018 SUBJECTIVE: Patient resting in bed. No new complaints today. OBJECTIVE: Vital signs: Temperature is 98.7 degrees, pulse is 95, respiratory rate is 21, blood pressure is 118/76, oxygen saturation is 92%. HEENT: Atraumatic, normocephalic. Cardiovascular: S1, S2. Respiratory system: Has evidence of good air entry bilaterally. Abdomen: Soft, nontender. No masses felt. Extremities: No evidence of edema. Central nervous system: No obvious focal deficits noted. DIAGNOSTIC DATA: WBC is 14.8, hematocrit is 37.3, platelet count of 401,000. Magnesium level is 1.7. ASSESSMENT AND PLAN: 1. Small-bowel obstruction status post exploratory laparotomy. Surgery is following. 2. Probable aspiration pneumonia. Continue antibiotics. 3. Hypokalemia. Potassium replaced. 4. Gastrointestinal (GI) bleed. Maintain patient on proton pump inhibitor (PPI). 5. Anemia. Follow up on hemoglobin, hematocrit. Transfuse packed red blood cells (PRBCs) as needed. 6. Hypertension. Continue current regimen. 7. Deep vein thrombosis (DVT) prophylaxis. Lovenox. DISPOSITION: Patient can be transferred to the floor. cc: Ravinder Davila MD
[2018-10-01] MEDS: SODIUM CHLORIDE 0.9% INJ SCH (20:51)
[2018-10-01] MEDS: DESYREL PO SCH (20:52)
[2018-10-02] MEDS: MORPHINE IV PRN ×4 (00:01→09:27)
--- NOTE | 2018-10-02 02:05 | PULMONOLOGY PROGRESS NOTE ---
DATE: 10/01/2018 SUBJECTIVE: The patient is awake, alert, and conversant. He is sitting in the bedside chair. He is having some bowel movement and passing flatus. He is starting clear liquids. OBJECTIVE: Vital Signs: The patient has been afebrile for the last 24 hours. Blood pressure 148/90, heart rate 81, respiration rate 20, oxygen saturation 92% on 2 L per nasal cannula. HEENT: Pupils are equal and reactive. Oropharynx is clear. Neck: Supple. Chest: Reveals occasional rhonchi, without wheezing, crackles, or tactile fremitus. Cardiac: S1-S2. Abdomen: Soft, without hepatosplenomegaly. Good bowel sounds are present. Extremities: Without edema. LABORATORIES: White blood count 14.8, hemoglobin 12.7, platelet count 401,000. Chemistry: 137, potassium 3.4, chloride 100, bicarbonate 26, BUN 7, creatinine 0.3, glucose 142, albumin 2.3. IMPRESSION: A 63-year-old with small bowel obstruction, nausea and vomiting, aspiration pneumonia, with acute hypoxemic respiratory failure. The patient continues to do well, and is currently on 2 L per nasal canula. RECOMMENDATION: 1. Continue bronchial hygiene. 2. Continue to wean oxygen as tolerated. 3. Followup chest x-ray tomorrow. 4. Cautious advancement of diet, per General Surgery. 5. Anticipate transfer to the floor, given continued improvement. cc: Tam Mendiola MD
[2018-10-02] MEDS: LOPRESSOR IV SCH ×3 (02:27→20:40)
[2018-10-02] MEDS: XOPENEX NEB INH SCH ×6 (03:55→23:27)
[2018-10-02] MEDS: ATROVENT NEB INH SCH ×6 (03:55→23:27)
[2018-10-02] MEDS: LOVENOX SUBQ SCH (06:04)
[2018-10-02 06:41] LABS: BASO# 0.07 X1000 (0.0-0.2); BASO% 0.6 % (0.0-0.8); EOS# 0.26 X1000 (0.0-0.7); EOS% 2.2 % (0.0-10.0); HEMATOCRIT 30.9 % (42.0-52.0); HEMOGLOBIN 10.2 g/dL (14.0-18.0); IMM GRAN# 0.25 X1000 (0.0-0.04); IMM GRAN% 2.1 % (0.0-0.5); LYMPH# 0.83 X1000 (1.2-3.4); LYMPH% 7.1 % (20.5-51.1); MCH 31.8 PG (27-31); MCV 96.3 FL (81-99); MONO# 0.87 X1000 (0.11-0.59); MONO% 7.4 % (1.7-9.3); MPV 9.1 FL (7.4-10.4); NEUT# 9.49 X1000 (1.4-6.5); NEUT% 80.6 % (42.2-75.2); PLT 463 X1000 (130-400); RBC 3.21 XMIL (4.7-6.1); RDW 12.1 % (11.5-14.5); WBC 11.77 X1000 (4.8-10.8)
[2018-10-02 06:47] LABS: AGAP 8; ALB/GLOB RATIO 0.7; ALBUMIN 2.3 g/dL (3.5-5.0); ALKALINE PHOSPHATASE 57 U/L (32-122); BUN 9 mg/dL (8-22); CALCIUM 7.9 mg/dL (8.8-10.2); CHLORIDE 99 mmol/L (98-107); COSMO 270; CREATININE 0.4 mg/dL (0.7-1.2); ESTIMATED GFR > 60; GLUCOSE 123 mg/dL (70-104); GOT 15 U/L (10-34); GPT 8 U/L (10-44); POTASSIUM 3.7 mmol/L (3.5-5.1); SODIUM 135 mmol/L (136-145); TCO2 28 mmol/L (25-35); TOTAL BILIRUBIN 0.34 mg/dL (0.20-1.00); TOTAL PROTEIN 5.6 g/dL (6.3-8.3)
[2018-10-02] MEDS: PULMICORT INH SCH ×2 (07:17→19:39)
[2018-10-02 07:34] LABS: EOS 1 % (1-10); LYMPHS 9 % (21-51); MONO 6 % (1-9); NRBC 1 % (0-0); SEGS 84 % (42-75)
[2018-10-02] MEDS: SODIUM CHLORIDE 0.9% INJ SCH (09:27)
[2018-10-02] MEDS: PROTONIX IV SCH ×2 (09:27→20:40)
[2018-10-02] MEDS: ROBAXIN 1,000 MG in NS 50 ML IV SCH ×2 (09:27→16:44)
[2018-10-02] MEDS: MAXIPIME 2 GM in NS 100 ML IV SCH ×2 (10:27→22:58)
--- NOTE | 2018-10-02 11:27 | GASTROENTEROLOGY PROGRESS NOTE ---
DATE: 10/02/2018 SUBJECTIVE: The patient is resting in bed. He is feeling better. He is eating better. He is having soft brown stools. PHYSICAL EXAMINATION: Vital Signs: Temperature 98.2 degrees, pulse rate of 72 , respiratory rate 16, blood pressure 132/75, saturating 94% on 4 L nasal cannula. General Appearance: Moderate built, moderately nourished, lying in bed, in no acute distress. HEENT: Mild pallor. No icterus. Neck: Supple. Abdomen: Discomfort in the pelvic region. He has a midline surgical incision. Extremities: No cyanosis, clubbing, or edema. Neurologic: He was alert, awake, and oriented x3. LABS: Hemoglobin and hematocrit are 10.2 and 30.9, white count of 11.7, platelet count of 462,000. Sodium of 135, potassium 3.7, chloride 99, bicarb 20, anion gap of 8, BUN of 9, creatinine 0.4, glucose of 123, calcium 7.9. Total bilirubin is 0.34, AST 15, ALT 8, alkaline phosphatase 57, total protein is 5.6, albumin of 2.3. IMPRESSION AND PLAN: 1. Small-bowel obstruction, status post exploratory laparotomy with small-bowel resection and lysis of adhesions and ventral hernia repair done on 09/26/[address] Vickers. The patient is passing gas. He is moving his bowels. He is eating better. He is under the care of the surgical team. 2. Aspiration pneumonia. He is on cefepime and Zyvox. 3. Upper gastrointestinal bleed. His hemoglobin is low but stable. We will continue him proton pump inhibitors twice a day. 4. Deep venous thrombosis prophylaxis with Lovenox. 5. Malnutrition. He is on Clinimix. 6. The above plan of care was discussed with the patient. All questions were answered. Please call us with any further questions. cc: Jevon Kelly MD [facility]
[2018-10-02] MEDS ORDERED: MORPHINE IV PRN (12:08)
[2018-10-02] MEDS: NORCO-7.5 PO PRN ×3 (12:43→22:54)
[2018-10-02] MEDS: ZYVOX 600 MG/D5W 600 MG/300 ML IVPB IV SCH (14:21)
--- NOTE | 2018-10-02 15:43 | PROGRESS NOTE ---
DATE: 10/02/2018 INTERVAL HISTORY: The patient still with some intermittent abdominal pain, status post ex lap with small-bowel resection and lysis of adhesions and hernia repair for small bowel obstruction done by Dr. Vickers 09/26/2018. The patient is having some bowel movements and passing gas. Tolerating soft diet. No acute events overnight. No other new complaints. No clear signs or symptoms of active GI bleeding. REVIEW OF SYSTEMS: Twelve point review of systems negative, except as per interval history. LABS: WBC 11.7, hemoglobin 10.2, hematocrit 30.9, platelet 463. Sodium 135, potassium 3.7, BUN 9, creatinine 0.4, albumin 2.3. PHYSICAL EXAMINATION: Vitals: T-max 98.7 degrees, pulse 79, respirations 18, blood pressure 127/81, O2 saturation 95% on 3 liters by nasal cannula. General: No acute distress. Vitals as above. HEENT: Normocephalic, atraumatic. Moist mucous membrane. Neck: No cervical adenopathy. Cardiovascular: Regular rate and rhythm. No murmurs noted. Pulmonary: Clear to auscultation bilaterally. No wheezing, rales or rhonchi noted. Abdomen: Soft. Mild expected postop tenderness. Bowel sounds decreased, but present. Extremities: Peripheral pulses intact. No clubbing, cyanosis or edema. Neurologic: Cranial nerves grossly intact. No focal deficits. Psychiatric: Normal mood and affect. Awake, alert and oriented x3. Skin: No new rashes or lesions identified. ASSESSMENT AND PLAN: 1. Small bowel obstruction. The patient is status post surgery by Dr. Vickers 09/26/2018 with small bowel resection and lysis of adhesions and ventral hernia repair. Tolerating diet well and having bowel movements. Management as per Surgery. 2. Aspiration pneumonia. Respiratory status significantly improved. The patient on cefepime and Zyvox. Can likely transition to oral antibiotics in the near future. Pulmonology following. 3. Likely gastrointestinal bleed. Patient on proton pump inhibitor. Gastroenterology following, but no plans for scope currently as his hemoglobin/hematocrit is largely stable. 4. Anemia, likely acute blood loss anemia related to gastrointestinal bleed as above. Relatively stable. Continue to monitor hemoglobin and hematocrit. 5. Hypertension. Continue current regimen. 6. Deep vein thrombosis prophylaxis with sequential compression devices.
--- NOTE | 2018-10-02 16:28 | INFECTIOUS DISEASE PROGRESS NO ---
DATE: 10/02/2018 PRESENT ILLNESS: Mr. Olvera is being treated for an aspiration pneumonia bilaterally. He is status post small bowel resection and repair of an incisional hernia on this admission. MEDICATIONS: Today is day 11 of Zyvox 600 mg IV every 12 hours and day 9 of cefepime 2 g IV every 12 hours. PHYSICAL EXAMINATION: Vital Signs: Temperature is 98.2 degrees, pulse rate 79 , respiratory rate 18, blood pressure 127/81, O2 saturation is 95% on 3 L nasal cannula. General: This is an acutely ill-appearing, middle-aged gentleman. He is lying in bed, currently in no acute distress. HEENT: Atraumatic, normocephalic. Oral mucous membranes are pink and moist. Conjunctivae are pink. Neck: Supple. Trachea is midline. Cardiovascular: Heart rate and rhythm are regular. Normal sinus rhythm on the monitor. Radial and pedal pulses are palpable bilaterally. There is bilateral pretibial edema noted 1+. Respiratory: Lung sounds are clear in the upper lobes. Diminished in the bases. Abdomen: Soft. Mildly tender. The abdominal incision is open to air with alvarez dry and intact. Bowel sounds are active. Neurologic: He is awake , alert, and oriented. He has been ambulating today to the bathroom. He states there is some mild generalized weakness but no focal deficits. LABORATORY AND X-RAY: Today his white count is 11.77, hemoglobin 10.2, platelet count 463,000. Creatinine is 0.4. Estimated GFR is greater than 60. AST is 15, ALT 8, alkaline phosphatase 57, total bilirubin 0.34. No imaging reports today. ASSESSMENT AND PLAN: Mr. Olvera is being treated for bilateral pneumonia, using cefepime and Zyvox. His white count is continuing to come down and he states he is feeling better today. I will go ahead and order a chest x-ray for in the morning to be done in the department and continue medications as ordered. We will also recheck blood work for in the morning as well. These plans have been discussed with and recommended by Dr. Mabry. COMORBIDITIES: For Mr. Olvera include gastroesophageal reflux disease, coronary artery disease, and COPD. Dictated by DAYNA Dukes for Nestor Mabry MD This chart was documented by, DAYNA Dukes and accurately reflects the services performed, treatment plan and medical decisions as attested by the providers signature Nestor Mabry MD. cc: Nestor Mabry MD [facility]
--- NOTE | 2018-10-02 17:40 | GENERAL SURGERY PROGRESS NOTE ---
DATE: 10/02/2018 SUBJECTIVE: He is doing very well. He has transfered to the floor. He is ambulating. His bowels are functioning. He is tolerating a diet. No fevers or tachycardia. He is on 3 L. He is quite weak. OBJECTIVE: His abdomen is soft. Incision is intact. LABORATORY: White count 11, hematocrit 30. Creatinine 0.4. ASSESSMENT AND PLAN: This is a 63-year-old gentleman status post exploratory laparotomy with bowel resection. He has done well. He has been placed in a rehab facility in [place]. Surgically he is ready to go whenever they have a spot. I will see him in a week to take his alvarez out. Otherwise, we will defer management to the Hospitalist, Pulmonology Service, and Infectious Disease regarding his pneumonia. cc: Facundo Vickers MD MTDD
[2018-10-02] MEDS: DESYREL PO SCH (20:40)
--- NOTE | 2018-10-03 00:32 | PULMONOLOGY PROGRESS NOTE ---
DATE: 10/02/2018 SUBJECTIVE: The patient was sleeping on arrival. He reports he has had a good day. He has been ambulating short distances. He is having bowel movements and tolerating p.o. intake. OBJECTIVE: Vital Signs: The patient has been afebrile for the last 24 hours. Blood pressure 144/83, heart rate 80, respiratory rate 16, oxygen saturation 96% on nasal cannula. HEENT: Pupils are equal and reactive. Oropharynx is clear. Neck: Supple. Chest: Reveals occasional rhonchi bilaterally. Cardiac: S1-S2. Abdomen: Soft, and without hepatosplenomegaly. Extremities: Revealed trace edema. LABORATORIES: Sodium 135, potassium 3.7, chloride 99, bicarbonate 28, BUN 9, creatinine 0.4. White blood count 11.7, hemoglobin 10.2, platelet count 463,000. IMPRESSION: A 63-year-old with small bowel obstruction, status post lysis of adhesions, nausea and vomiting, aspiration pneumonia, with acute hypoxemic respiratory failure. The patient's oxygen saturation is fluctuating, but he is doing well. He is tolerating p.o. intake. He is having bowel movements. It may take 1 to 2 weeks to see a clinical improvement in his chest x- ray. RECOMMENDATION: 1. Continue bronchial hygiene. 2. Wean oxygen as tolerated. 3. A 2-view chest x-ray has been ordered by Infectious Disease for tomorrow. 4. Continue physical therapy as tolerated. cc: Tam Mendiola MD
[2018-10-03] MEDS: ROBAXIN 1,000 MG in NS 50 ML IV SCH ×3 (01:02→16:29)
[2018-10-03] MEDS: ZYVOX 600 MG/D5W 600 MG/300 ML IVPB IV SCH (02:53)
[2018-10-03] MEDS: NORCO-7.5 PO PRN ×5 (02:59→20:09)
[2018-10-03] MEDS: LOPRESSOR IV SCH ×3 (03:00→20:12)
[2018-10-03] MEDS: XOPENEX NEB INH SCH ×6 (04:35→23:18)
[2018-10-03] MEDS: ATROVENT NEB INH SCH ×6 (04:35→23:18)
[2018-10-03] MEDS: CLINIMIX E 4.25%-5% SOLUTION 1,000 ML IV SCH ×2 (05:29→14:52)
[2018-10-03] MEDS: LOVENOX SUBQ SCH (05:30)
[2018-10-03 06:39] LABS: BASO# 0.09 X1000 (0.0-0.2); BASO% 0.9 % (0.0-0.8); EOS# 0.29 X1000 (0.0-0.7); EOS% 2.9 % (0.0-10.0); HEMATOCRIT 31.1 % (42.0-52.0); HEMOGLOBIN 10.4 g/dL (14.0-18.0); IMM GRAN# 0.22 X1000 (0.0-0.04); IMM GRAN% 2.2 % (0.0-0.5); LYMPH# 0.85 X1000 (1.2-3.4); LYMPH% 8.4 % (20.5-51.1); MCH 32.5 PG (27-31); MCHC 33.4 g/dL (33-37); MCV 97.2 FL (81-99); MONO# 0.82 X1000 (0.11-0.59); MONO% 8.2 % (1.7-9.3); MPV 8.8 FL (7.4-10.4); NEUT# 7.79 X1000 (1.4-6.5); NEUT% 77.4 % (42.2-75.2); PLT 471 X1000 (130-400); RDW 12.1 % (11.5-14.5); WBC 10.06 X1000 (4.8-10.8)
[2018-10-03 06:43] LABS: AGAP 9; BUN 10 mg/dL (8-22); CALCIUM 7.8 mg/dL (8.8-10.2); CHLORIDE 99 mmol/L (98-107); COSMO 274; CREATININE 0.4 mg/dL (0.7-1.2); ESTIMATED GFR > 60; GLUCOSE 127 mg/dL (70-104); POTASSIUM 3.8 mmol/L (3.5-5.1); SODIUM 137 mmol/L (136-145); TCO2 29 mmol/L (25-35)
[2018-10-03 07:19] LABS: BANDS 6 % (0-1); LYMPHS 2 % (21-51); MONO 2 % (1-9); SEGS 90 % (42-75)
[2018-10-03] MEDS: PULMICORT INH SCH ×2 (07:34→19:12)
[2018-10-03] MEDS: MAXIPIME 2 GM in NS 100 ML IV SCH (08:30)
[2018-10-03] MEDS: PROTONIX IV SCH ×2 (08:30→20:09)
--- NOTE | 2018-10-03 09:22 | Diag Imaging Result Doc PS360 ---
EXAM: CHEST-2 VIEWS HISTORY: pneumonia TECHNIQUE: Chest two views COMPARISON: 10/01/2018 FINDINGS: There are dense infiltrates throughout the left lung with smaller infiltrates in the mid right lung. These are less dense than on the prior study. No cardiomegaly. There is a small left pleural effusion. IMPRESSION: Mild interval improvement. Electronically signed by Corey Cox 10/03/2018 9:20 AM
[2018-10-03] MEDS: LEVAQUIN PO SCH (12:29)
--- NOTE | 2018-10-03 13:21 | INFECTIOUS DISEASE PROGRESS NO ---
DATE: 10/03/2018 PRESENT ILLNESS: The patient is being treated for aspiration pneumonia. He is doing well on Zyvox and cefepime. MEDICATIONS: Is on Zyvox and cefepime and doing well with it. PHYSICAL EXAMINATION: Vital signs: Temperature is 98.5, pulse 83, respirations 16, blood pressure 118/73. General: This is an ill-appearing middle-aged male. He is actually improved over the past few days. He is sitting up in his chair and able to ambulate. Head, eyes, ears, nose, and throat: He can hear my spoken word and see near objects. There is no drainage from his nose or ears. Neck: No stiffness. Lungs: Clear to auscultation. Cardiovascular: Heart rate is regular. Extremities: The patient has an IV site phlebitis involving the left arm. Neurologic: The patient is alert. He can move his extremities. There is no tremor. LAB AND X-RAY: Chest x-ray shows improvement in the patient's infiltrate. Creatinine is 0.4, GFR is greater than 60. CBC shows a white count of 10,060, hemoglobin 10.4, and platelet count 471,000. ASSESSMENT AND PLAN: The patient is being treated for pneumonia. I have stopped his IV antibiotics and I have put the patient on Levaquin, which I plan on sending him home on and then having him come back to my office in approximately 2 weeks. As regarding the patient's IV site phlebitis, we have removed the IV from the arm. COMORBIDITIES: The patient has gastroesophageal reflux disease, coronary artery disease, and COPD. cc: Nestor Mabry MD
[2018-10-03] MEDS: DESYREL PO SCH (20:09)
[2018-10-04] MEDS: NORCO-7.5 PO PRN ×6 (00:04→20:30)
[2018-10-04] MEDS: CARDIZEM PO SCH ×5 (00:04→20:30)
[2018-10-04] MEDS: ROBAXIN 1,000 MG in NS 50 ML IV SCH ×2 (01:36→08:49)
[2018-10-04] MEDS: XOPENEX NEB INH SCH ×6 (03:19→23:30)
[2018-10-04] MEDS: ATROVENT NEB INH SCH ×6 (03:19→23:30)
--- NOTE | 2018-10-04 03:24 | GENERAL SURGERY PROGRESS NOTE ---
DATE: 10/03/2018 SUBJECTIVE: Doing well. Having bowel function. No fevers. No tachycardia. OBJECTIVE: Vital Signs: Blood pressure 135/76, oxygen is down to 2 L, he is satting in the 90s. Abdomen: Soft. Incisions intact. LABORATORY DATA: Reviewed his labs. White count is normal at 10, creatinine is 0.4. I reviewed his pathology, shows no malignant changes. ASSESSMENT AND PLAN: The patient is a 63-year-old gentleman who is status post exploratory laparotomy and bowel resection, doing well. He needs rehabilitation. He is improving from a pulmonary standpoint. Surgically I do not see any acute issues. We will continue nutritional supplementation and disposition to rehabilitation. cc: Facundo Vickers MD
[2018-10-04] MEDS: PROTONIX PO SCH ×2 (05:19→06:21)
[2018-10-04] MEDS: LOVENOX SUBQ SCH (05:19)
[2018-10-04 06:18] LABS: BASO# 0.09 X1000 (0.0-0.2); EOS# 0.27 X1000 (0.0-0.7); EOS% 3.1 % (0.0-10.0); HEMATOCRIT 30.1 % (42.0-52.0); HEMOGLOBIN 9.8 g/dL (14.0-18.0); IMM GRAN# 0.14 X1000 (0.0-0.04); IMM GRAN% 1.6 % (0.0-0.5); LYMPH# 0.74 X1000 (1.2-3.4); LYMPH% 8.5 % (20.5-51.1); MCH 31.6 PG (27-31); MCHC 32.6 g/dL (33-37); MCV 97.1 FL (81-99); MONO# 0.88 X1000 (0.11-0.59); MONO% 10.1 % (1.7-9.3); MPV 8.9 FL (7.4-10.4); NEUT# 6.63 X1000 (1.4-6.5); NEUT% 75.7 % (42.2-75.2); PLT 490 X1000 (130-400); RDW 12.1 % (11.5-14.5); WBC 8.75 X1000 (4.8-10.8)
[2018-10-04 06:40] LABS: AGAP 10; ALB/GLOB RATIO 0.7; ALBUMIN 2.5 g/dL (3.5-5.0); ALKALINE PHOSPHATASE 52 U/L (32-122); BUN 11 mg/dL (8-22); CALCIUM 7.8 mg/dL (8.8-10.2); CHLORIDE 100 mmol/L (98-107); COSMO 272; CREATININE 0.3 mg/dL (0.7-1.2); ESTIMATED GFR > 60; GLUCOSE 109 mg/dL (70-104); GOT 14 U/L (10-34); GPT 11 U/L (10-44); POTASSIUM 3.5 mmol/L (3.5-5.1); SODIUM 136 mmol/L (136-145); TCO2 26 mmol/L (25-35); TOTAL BILIRUBIN 0.25 mg/dL (0.20-1.00); TOTAL PROTEIN 5.9 g/dL (6.3-8.3)
[2018-10-04] MEDS: PULMICORT INH SCH ×2 (07:46→19:00)
[2018-10-04] MEDS: LEVAQUIN PO SCH (08:05)
--- NOTE | 2018-10-04 09:23 | PROGRESS NOTE ---
DATE: 10/03/2018 SUBJECTIVE: Patient resting comfortably. Seems to be doing better today. OBJECTIVE: Vital signs: Vital signs are as follows: Temperature 98.5 degrees, pulse 83, respiratory rate 16, blood pressure is 118/80, oxygen saturation is 98%. HEENT: Atraumatic, normocephalic. Cardiovascular system: S1, S2. Respiratory system: Has evidence of good air entry bilaterally. Abdomen: Soft, nontender. No masses felt. Surgical wound midline abdomen looks clean and dry. No discharge. Bowel sounds present. Extremities: No evidence of significant edema noted. LABS: Labs are as follows: WBC is 10.06, hematocrit is 31.1 with a platelet count of 471. Sodium is 137, potassium 3.8, chloride 99, bicarbonate 29. BUN is 18, creatinine 0.4. ASSESSMENT AND PLAN: 1. Small bowel obstruction status post exploratory laparotomy. Optimize pain control. Recommend physical therapy. Surgery following. 2. Probable aspiration pneumonia. Continue antibiotics. 3. Gastrointestinal bleed. Maintain patient on proton pump inhibitor. 4. Anemia. Follow up on hemoglobin, hematocrit. Transfuse packed red blood cells as needed. 5. Hypertension. Continue current antihypertensive regimen. 6. Deep vein thrombosis prophylaxis. Lovenox. 7. Disposition: Will discharge when [*]by the surgical team. cc: Ravinder Davila MD
[2018-10-04] MEDS: CLINIMIX E 4.25%-5% SOLUTION 1,000 ML IV SCH (12:27)
--- NOTE | 2018-10-04 13:29 | PROGRESS NOTE ---
DATE: 10/04/2018 INTERVAL HISTORY: Patient with improving small-bowel obstruction. Having bowel movements. Tolerating diet. Remains globally weak but no new complaints. No acute events overnight. REVIEW OF SYSTEMS: Twelve point review of systems negative except as per interval history. LABS: WBC 8.75, hemoglobin 9.8, hematocrit 30.1, platelets 490,000. Metabolic panel unremarkable. VITALS: T-max 98.9 degrees, pulse 87, respirations 16, blood pressure 137/71, O2 saturation 95% on 2 L by nasal cannula. PHYSICAL EXAMINATION: General: No acute distress. Vitals as above. HEENT: Normocephalic, atraumatic. Mucous membranes are moist. Neck: No lymphadenopathy. Cardiovascular: Regular rate and rhythm. Lungs: Clear to auscultation bilaterally. Abdomen: Soft. Minimal postop tenderness. Bowel sounds present. Skin: Incision clean, dry, and intact. Extremities: Peripheral pulses are intact. No clubbing, cyanosis of edema. Neurological: Cranial nerves are intact. Mild global weakness, but no focal deficits. Psychiatric: Normal mood and affect. Awake, alert and oriented x3. ASSESSMENT AND PLAN: 1. Small-bowel obstruction. Patient is status post surgery by Dr. Vickers, 09/26/2018, with small- bowel resection, lysis of adhesions, and ventral hernia repair. The patient continues to tolerate diet well and having bowel movements. Remains globally weak. Anticipate discharge to rehab when bed available. Management as per surgery. 2. Aspiration pneumonia. Respiratory status much improved. Patient initially on cefepime and Zyvox, but has been transitioned to p.o. Levaquin which we anticipate him discharging on. 3. Likely gastrointestinal bleed. Patient on PPI. GI following, but no plans for scope as his hemoglobin and hematocrit has been largely stable. 4. Likely acute post hemorrhagic anemia, related to GI bleed as above. Hemoglobin and hematocrit have been stable for last several days. 5. Hypertension. Reasonable control on current regimen. 6. Deep venous thrombosis prophylaxis with SCDs. DISPOSITION: Anticipate discharge to rehab once a bed is available, hopefully Saturday.
[2018-10-04] MEDS: ROBAXIN PO PRN (16:39)
[2018-10-04] MEDS: DESYREL PO SCH (20:30)
[2018-10-05] MEDS: NORCO-7.5 PO PRN ×6 (01:24→23:17)
[2018-10-05] MEDS: CARDIZEM PO SCH ×4 (01:24→21:27)
--- NOTE | 2018-10-05 01:51 | GENERAL SURGERY PROGRESS NOTE ---
DATE: 10/04/2018 SUBJECTIVE: He is doing well. His bowels are functioning. No fevers. No tachycardia. He is moving around. He is tolerating a diet. No fevers. No tachycardia. PHYSICAL EXAMINATION: Abdomen: Soft. Incision intact. LABORATORY DATA: I reviewed his labs. White count is 8, hematocrit is 30. Potassium is 3.5, creatinine is 0.3. ASSESSMENT AND PLAN: A 63-year-old gentleman status post exploratory laparotomy with bowel resection for bowel obstruction. He is doing well, awaiting rehab disposition. Otherwise, we will continue physical therapy, nutritional supplementation, and electrolyte repletion. He is on prophylactic Lovenox as well as a PPI. cc: Facundo Vickers MD
[2018-10-05] MEDS: XOPENEX NEB INH SCH ×6 (03:15→23:15)
[2018-10-05] MEDS: ATROVENT NEB INH SCH ×6 (03:16→23:15)
[2018-10-05] MEDS: ROBAXIN PO PRN ×2 (05:21→19:16)
[2018-10-05] MEDS: CLINIMIX E 4.25%-5% SOLUTION 1,000 ML IV SCH ×2 (05:49→06:22)
[2018-10-05] MEDS: LOVENOX SUBQ SCH (05:49)
[2018-10-05] MEDS: PULMICORT INH SCH ×2 (07:47→19:19)
[2018-10-05] MEDS: PROTONIX PO SCH (08:33)
[2018-10-05] MEDS: LEVAQUIN PO SCH (08:33)
--- NOTE | 2018-10-05 13:51 | PROGRESS NOTE ---
DATE: 10/05/2018 SUBJECTIVE: The patient is awake. Not in any obvious distress. OBJECTIVE: Vital signs: Temperature is 98 degrees, pulse 88, respiratory rate 20, blood pressure is 139/83, oxygen saturation is 93%. HEENT: Atraumatic, normocephalic. Cardiovascular: S1, S2. Respiratory: Has evidence of good air entry bilaterally. Abdomen: Soft, nontender. No masses felt. Surgical wound looks clean and dry. Extremities: No evidence of edema. Central nervous system: No obvious focal deficit noted. LABS: None today. ASSESSMENT AND PLAN: 1. Small bowel obstruction status post exploratory laparotomy. Optimize pain control. Recommend PT. Surgery following. 2. Probable aspiration pneumonia. Continue antibiotics. 3. Gastrointestinal bleed. Maintain patient on PPI. 4. Anemia. Follow up on hemoglobin and hematocrit. Transfuse PRBCs as needed. 5. Hypertension. Continue current antihypertensive regimen. 6. Deep vein thrombosis prophylaxis. SCDs. 7. Gastrointestinal prophylaxis. The patient is on a PPI. cc: Ravinder Davila MD
--- NOTE | 2018-10-05 14:55 | GENERAL SURGERY PROGRESS NOTE ---
DATE: 10/05/2018 SUBJECTIVE: No events. OBJECTIVE: Abdomen: Soft. Incision intact. Vital Signs: No fevers. No tachycardia. ASSESSMENT AND PLAN: A 63-year-old gentleman status post bowel resection, doing well. Plan for rehab early this week. cc: Facundo Vickers MD
[2018-10-05] MEDS: DESYREL PO SCH (21:26)
[2018-10-06] MEDS: ATROVENT NEB INH SCH ×6 (03:13→23:04)
[2018-10-06] MEDS: XOPENEX NEB INH SCH ×6 (03:13→23:04)
[2018-10-06] MEDS: PROTONIX PO SCH ×2 (05:06→09:12)
[2018-10-06] MEDS: CARDIZEM PO SCH ×4 (05:07→20:41)
[2018-10-06] MEDS: NORCO-7.5 PO PRN ×4 (05:10→18:26)
[2018-10-06] MEDS: CLINIMIX E 4.25%-5% SOLUTION 1,000 ML IV SCH (05:13)
--- NOTE | 2018-10-06 07:32 | Diag Imaging Result Doc PS360 ---
EXAM: CHEST-1 VIEW HISTORY: SOB TECHNIQUE: Chest single view COMPARISON: 10/03/2018 FINDINGS: There are bilateral infiltrates, left greater than right. The infiltrates in the left base are less pronounced than they were previously. However, the infiltrates in the mid right lung are more pronounced. No cardiomegaly. Interval decrease in the left pleural effusion. IMPRESSION: Mixed areas of improvement and worsening. Electronically signed by Corey oCx 10/06/2018 7:29 AM
[2018-10-06] MEDS: PULMICORT INH SCH ×2 (07:51→19:35)
[2018-10-06] MEDS: LEVAQUIN PO SCH (09:13)
--- NOTE | 2018-10-06 12:16 | GASTROENTEROLOGY PROGRESS NOTE ---
DATE: 10/06/2018 SUBJECTIVE: Patient is resting in bed. He is feeling better. Denies any new complaints. He is likely going to rehab soon. OBJECTIVE: Vital signs: Temperature 97.8, pulse 76, respiratory rate 16, blood pressure 137/79, saturating 92% on room air. General Appearance: Moderately built, moderately nourished, lying in bed, in no acute distress. HEENT: Mild pallor. No icterus. Neck: Supple. Abdomen: Discomfort from the recent surgery. Midline surgical incision noted. No guarding. Extremities: No cyanosis or clubbing. Neurological: He is alert, awake, and oriented x3. LABORATORY DATA: Hemoglobin and hematocrit 9.8 and 30.1, white count 8.75, platelet count 490,000. MCV 97.1. Sodium 136, potassium 3.5, chloride 100, bicarb 26, anion gap 10, BUN 11, creatinine 0.3, glucose 109, creatinine 0.8, total bilirubin 0.25, AST 14, ALT 11, alkaline phosphatase 52, total protein 5.9, albumin 2.5. IMPRESSION: 1. Small bowel obstruction, status post exploratory laparotomy. He is being followed by Dr. Butch Vickers. During the recent surgery on 09/26/2018, he had lysis of adhesions, ventral hernia repair, and small bowel resection. 2. Aspiration pneumonia. He is on antibiotics. 3. Gastrointestinal bleeding. He is on proton pump inhibitors. The patient will need outpatient EGD and colonoscopy. His last colonoscopy was done many years ago. He does not recall the specifics of the procedure. The patient was counseled to keep on gentle laxatives to prevent constipation. 4. Constipation. The patient will continue on MiraLAX once daily. 5. Anemia. Continue to watch for now. Transfuse as needed. Will keep him on multivitamin once daily. 6. Deep venous thrombosis prophylaxis. Sequential compression devices. 7. Gastrointestinal prophylaxis. Proton pump inhibitors. 8. The patient will be scheduled for outpatient appointment in 4 weeks to schedule for outpatient EGD and colonoscopy. The above plans discussed with the patient and all questions. Please call with questions. cc: MD Adam Rivers DO
--- NOTE | 2018-10-06 14:15 | GENERAL SURGERY PROGRESS NOTE ---
DATE: 10/06/2018 SUBJECTIVE: Doing well. No fevers, no tachycardia. Bowels are functioning. OBJECTIVE: Vital Signs: Blood pressure 137/79. Exam: Abdomen is soft. Incision is intact. LABS: I reviewed his labs. Nothing new today. ASSESSMENT AND PLAN: A 61-year-old gentleman status post exploratory laparotomy with bowel resection. He is doing well. We will continue to follow him closely. cc: Facundo Vickers MD
--- NOTE | 2018-10-06 18:31 | INFECTIOUS DISEASE PROGRESS NO ---
DATE: 10/06/2018 PRESENT ILLNESS: Mr. Olvera has an aspiration pneumonia. He is status post small bowel resection and repair of an incisional hernia. MEDICATIONS: Today is day 3 of Levaquin 500 mg p.o. daily. PHYSICAL EXAMINATION: Vital Signs: Temperature 97.4 degrees, pulse rate 102, respiratory rate 24, blood pressure 155/86, O2 saturation 95% on room air. General: This is a chronically ill- appearing, middle-aged gentleman. He is lying in the bed, currently in no acute distress. HEENT: He is atraumatic and normocephalic. Oral mucous membranes are pink and moist. Conjunctivae are pink. Neck: Supple. Trachea is midline. Cardiovascular: Heart rate and rhythm are regular. Normal sinus rhythm on the monitor. Pedal and radial pulses are +2 bilaterally. He has trace pretibial edema bilaterally. Abdomen: Soft, mildly tender. Bowel sounds are active. There is an incision, which is open to air, to the midline abdomen with alvarez in place. There are some areas of hardening and erythema to the incision. Respiratory: Lung sounds are clear in the upper lobes, diminished in the bases. Neurologic: He is awake, alert, and oriented. He is able to ambulate with assistance. There is no tremor. LABORATORY AND X-RAY: No labs available today. His x-ray from this morning shows mixed areas of improvement and worsening to the infiltrates bilaterally. ASSESSMENT AND PLAN: Mr. Olvera is being treated for bilateral pneumonia. He is receiving oral Levaquin, which we will continue at this time. Blood work has been ordered for in the morning, so we will reevaluate that tomorrow. The patient states he is feeling better and is talking about going home if arrangements are not made for him to go to rehab. These plans have been discussed with and recommended by Dr. Mabry. COMORBIDITIES: Gastroesophageal reflux disease, coronary artery disease, and chronic obstructive pulmonary disease. Dictated by DAYNA Dukes for Nestor Mabry MD This chart was documented by, DAYNA Dukes and accurately reflects the services performed, treatment plan and medical decisions as attested by the providers signature Nestor Mabry MD. cc: Nestor Mabry MD [facility]
[2018-10-06] MEDS: ICAR-C PO SCH (20:41)
[2018-10-06] MEDS: DESYREL PO SCH (20:41)
[2018-10-06] MEDS: ROBAXIN PO PRN (20:44)
--- NOTE | 2018-10-07 00:39 | PULMONOLOGY PROGRESS NOTE ---
DATE: 10/06/2018 SUBJECTIVE: The patient is awake, alert, and conversant. He reports he is ambulating short distances in the heredia, but has remained significantly weak. He is tolerating p.o. intake. OBJECTIVE: The patient is on room air. He has been afebrile for the last 24 hours. BP 155/86, heart rate 102, respiratory rate 24, oxygen saturation 95%.HEENT: Pupils are equal and reactive. Oropharynx is clear. Neck: Is supple. Chest: Reveals faint crackles in the bases. Cardiac: S1-S2. Abdomen: Soft with good bowel sounds. Extremities: Without edema. LABORATORIES: Chest x-ray reveals decreasing infiltrates on the left. He may have slightly more prominent lung markings on the right. IMPRESSION: A 63-year-old with small bowel obstruction, aspiration pneumonia, with small bowel obstruction status post lysis of adhesions. The patient continues to improve. He is now on room air. His chest x-ray has significantly improved over the last 10 days and should continue to improve with resumption of bowel function. RECOMMENDATION: 1. Agree with oral antibiotics as you are doing. 2. Continue bronchial hygiene. 3. Anticipate rehabilitation stay. 4. Consider followup chest x-ray in 2 weeks. cc: Tam Mendiola MD
[2018-10-07] MEDS: CLINIMIX E 4.25%-5% SOLUTION 1,000 ML IV SCH (00:48)
[2018-10-07] MEDS: NORCO-7.5 PO PRN ×5 (02:30→21:53)
[2018-10-07] MEDS: CARDIZEM PO SCH ×4 (02:52→21:53)
[2018-10-07] MEDS: XOPENEX NEB INH SCH ×6 (03:10→22:42)
[2018-10-07] MEDS: ATROVENT NEB INH SCH ×6 (03:10→22:42)
--- NOTE | 2018-10-07 04:39 | PROGRESS NOTE ---
DATE: 10/06/2018 SUBJECTIVE: The patient is awake, resting comfortable in bed. Not in any obvious distress. OBJECTIVE: Vital Signs: Temperature 97.8 degrees, pulse 76, respiratory rate 16, blood pressure 137/79, oxygen saturation 92%. HEENT: Atraumatic, normocephalic. Cardiovascular: S1, S2. Respiratory: Has evidence of good air entry bilaterally. Abdomen: Soft, nontender. No masses felt. Extremities: No evidence of edema. Central Nervous System: No obvious focal deficit noted. LABORATORY DATA: None. ASSESSMENT AND PLAN: 1. Small bowel obstruction, status post exploratory laparotomy. Surgery following. 2. Probable aspiration pneumonia. Continue antibiotics. 3. Gastrointestinal bleed. Maintain patient on proton pump inhibitor. 4. Anemia. Follow up on hemoglobin and hematocrit. Transfuse PRBCs as needed. 5. Hypertension. Continue current antihypertensive regimen. 6. Deep vein thrombosis prophylaxis. Sequential compression devices. 7. Gastrointestinal prophylaxis. Proton pump inhibitor. 8. Disposition. The patient awaiting insurance approval for rehab placement. cc: Ravinder Davila MD
[2018-10-07 06:03] LABS: BASO# 0.11 X1000 (0.0-0.2); BASO% 1.3 % (0.0-0.8); EOS# 0.26 X1000 (0.0-0.7); EOS% 3.1 % (0.0-10.0); HEMOGLOBIN 10.8 g/dL (14.0-18.0); IMM GRAN# 0.11 X1000 (0.0-0.04); IMM GRAN% 1.3 % (0.0-0.5); MCH 31.6 PG (27-31); MCHC 32.7 g/dL (33-37); MCV 96.5 FL (81-99); MONO# 0.81 X1000 (0.11-0.59); MONO% 9.6 % (1.7-9.3); MPV 9.2 FL (7.4-10.4); NEUT# 6.08 X1000 (1.4-6.5); NEUT% 71.7 % (42.2-75.2); PLT 609 X1000 (130-400); RBC 3.42 XMIL (4.7-6.1); RDW 12.3 % (11.5-14.5); WBC 8.47 X1000 (4.8-10.8)
[2018-10-07 06:46] LABS: AGAP 10; ALB/GLOB RATIO 0.8; ALBUMIN 3.1 g/dL (3.5-5.0); ALKALINE PHOSPHATASE 64 U/L (32-122); BUN 8 mg/dL (8-22); CALCIUM 8.6 mg/dL (8.8-10.2); CHLORIDE 102 mmol/L (98-107); COSMO 275; CREATININE 0.4 mg/dL (0.7-1.2); ESTIMATED GFR > 60; GLUCOSE 117 mg/dL (70-104); GOT 17 U/L (10-34); GPT 15 U/L (10-44); POTASSIUM 3.9 mmol/L (3.5-5.1); SODIUM 138 mmol/L (136-145); TCO2 26 mmol/L (25-35); TOTAL BILIRUBIN 0.27 mg/dL (0.20-1.00); TOTAL PROTEIN 6.8 g/dL (6.3-8.3)
[2018-10-07] MEDS: PROTONIX PO SCH (07:13)
[2018-10-07] MEDS: PULMICORT INH SCH ×2 (07:35→19:10)
[2018-10-07] MEDS: LEVAQUIN PO SCH (10:26)
[2018-10-07] MEDS: CENTRUM SILVER PO SCH (10:26)
[2018-10-07] MEDS: ICAR-C PO SCH ×2 (10:26→21:53)
[2018-10-07] MEDS: MIRALAX PO SCH (10:27)
--- NOTE | 2018-10-07 17:08 | INFECTIOUS DISEASE PROGRESS NO ---
DATE: 10/07/2018 PRESENT ILLNESS: The patient has an aspiration pneumonia. He is status post bowel resection and repair of an incisional hernia. MEDICATIONS: The patient has been on Levaquin now for 4 days. PHYSICAL EXAMINATION: Vital Signs: Temperature is 98.8 degrees, pulse 83, respirations 18, blood pressure 139/80. Generally: This is a somewhat ill-appearing, middle-aged male. He is in no acute distress, however. Head, eyes, ears, nose, throat: He can hear my spoken words and see near objects. He does not have any white patches on his tongue. Neck: No meningismus. Thorax: No increased AP diameter of the chest. Lungs: Clear to auscultation. Cardiovascular: Heart rate is regular. Abdomen: Soft and not tender to light palpation. The patient's incision is intact and there is no drainage coming from it. Neurologic: The patient is alert. He is able to ambulate. There is no tremor. LAB AND X-RAY: There is no new radiographic study. The CBC for today shows a white count of 8,470, hemoglobin 10.8, and platelet count 609,000. Creatinine 0.4. GFR is greater than 60. Blood cultures are negative. ASSESSMENT AND PLAN: The patient is unable to go to a rehab facility. His insurance has turned him down. He is going to be leaving tomorrow and he is going to be staying with his girlfriend in [place]. I am going to through the computer make a prescription for Levaquin 500 mg daily for another 7 days. I had asked him if he could come by the office in a week and he said he would rather make it at 2 weeks. At that time, the patient will be examined and we will repeat his chest x-ray to see that the basilar infiltrates have cleared. COMORBIDITIES: Gastroesophageal reflux disease and chronic obstructive pulmonary disease. cc: Nestor Mabry MD
--- NOTE | 2018-10-07 18:26 | GASTROENTEROLOGY PROGRESS NOTE ---
DATE: 10/07/2018 SUBJECTIVE: No acute overnight events. The patient denies nausea, vomiting, fevers, chest pain, SOB. Abdominal pain improving. He is tolerating a regular diet. He is having regular bowel movements. OBJECTIVE: Vital Signs: T 98.1, HR 85, RR 17, BP 150/91, O2 sat 100% on RA GEN: awake, alert, NAD HEENT: Sclerae anicteric. Moist mucous membranes. Neck: No JVD. No lymphadenopathy Cardiac: Regular rate and rhythm, no murmurs. Lungs: Coarse bibasilar crackles. Normal work of breathing. Abdomen: Midline incision. Clean, dry, and intact with alvarez. NT/ND, NABS Extremities: No clubbing, cyanosis or edema. Neurologic: Nonfocal. Psychiatric:Normal affect. LABORATORY DATA: No recent labs ASSESSMENT AND PLAN: Mr. Olvera is a 63-year-old gentleman admitted with small bowel obstruction. He is status post exploratory laparotomy with small bowel resection, lysis of adhesions and ventral hernia repair, done on 09/26/2018. He is doing well from GI standpoint. #SBO: s/p surgical intervention #Aspiration PNA: s/p course of abx; on RA #Constipation: continue bowel regimen #UGIB: resolved; suspected MWT #Anemia: remote EGD/colonoscopy; recommend continued iron replacement and outpatient EGD/colonoscopy Will sign off. Please call with questions or concerns. [facility] HOSPITALRavinder
[2018-10-07] MEDS: CATAPRES-TTS-1 TD SCH (18:31)
--- NOTE | 2018-10-07 18:41 | PROGRESS NOTE ---
DATE: 10/07/2018 SUBJECTIVE: The patient is resting in bed he is irritated because he been told that he doesn't qualify for rehab. OBJECTIVE: Vital Signs: Temperature 98.1 degrees, blood pressure 150/91, heart rate 85, respirations 17, O2 saturation 99% on room air. General: This is a chronically ill-appearing elderly male lying in bed in no acute distress. Heart: S1, S2 normal. Regular rate and rhythm. Lungs: Clear to auscultation bilaterally. Abdomen: The patient has alvarez on his abdomen, they appear to be clean, dry and intact. Extremities: No edema, no cyanosis. Neuro : The patient is alert and oriented x3. LABS: Reviewed. ASSESSMENT AND PLAN: 1. Aspiration pneumonia. The patient is on oral Levaquin. 2. Status post exploratory laparotomy with lysis of adhesions and small-bowel resection. Stable. 3. Hypertension. Controlled. 4. Gastrointestinal prophylaxis. The patient is on Protonix. 5. Disposition. The patient should be stable for discharge home tomorrow. cc: Preeti Bunn MD MTDD
[2018-10-07] MEDS: DESYREL PO SCH (21:53)
[2018-10-07] MEDS: ROBAXIN PO PRN (21:54)
[2018-10-08] MEDS: NORCO-7.5 PO PRN ×3 (01:52→10:41)
[2018-10-08] MEDS: XOPENEX NEB INH SCH ×3 (03:17→11:01)
[2018-10-08] MEDS: ATROVENT NEB INH SCH ×3 (03:17→11:01)
[2018-10-08] MEDS ORDERED: LACTULOSE PO ONE (05:31)
[2018-10-08] MEDS: CARDIZEM PO SCH ×3 (06:35→12:19)
[2018-10-08] MEDS: PROTONIX PO SCH (06:36)
[2018-10-08] MEDS: PULMICORT INH SCH (07:14)
[2018-10-08 07:22] VITALS: BP 141/83
[2018-10-08] MEDS: ICAR-C PO SCH (09:02)
[2018-10-08] MEDS: LEVAQUIN PO SCH (09:02)
[2018-10-08] MEDS: CENTRUM SILVER PO SCH (09:02)
[2018-10-08] MEDS: MIRALAX PO SCH (09:03)
--- NOTE | 2018-10-10 15:42 | DISCHARGE SUMMARY ---
ADMISSION DATE: 09/21/2018 DISCHARGE DATE: 10/08/2018 FINAL DISCHARGE DIAGNOSES: 1. Acute hypoxemic respiratory failure. 2. Aspiration pneumonia. 3. Status post exploratory laparotomy with lysis of adhesions and small bowel resection. 4. Hypokalemia. 5. Hypertension. 6. Hypomagnesemia. 7. Paroxysmal atrial fibrillation. CONSULTATIONS REQUESTED DURING HOSPITAL STAY: 1. General Surgery consultation with Dr. Jimmy Pope. 2. GI consultation with Dr. Jevon Kelly. 3. ID consultation with Dr. Nestor Mabry. 4. Pulmonary consultation with Dr. Tam Mendiola. PROCEDURES: 1. Exploratory laparotomy. 2. Lysis of adhesions. 3. Small bowel resection. 4. Primary closure of an incisional hernia. HOSPITAL COURSE: Mr. Olvera is a 63-year-old male with a history of hypertension, chronic pain, and tobacco abuse who presented to the ER with a chief complaint of abdominal pain as well as nausea and vomiting. In the ER, a CT of the abdomen and pelvis was done that revealed a high- grade small bowel obstruction as well as infiltrates at the bases of both lungs. The patient was then admitted to the hospitalist service. General Surgery was consulted and the patient was made NPO, and an NG tube was placed to low intermittent suction to try and decompress the bowel. Due to the infiltrates seen on CT, blood cultures and a sputum culture were obtained, and the patient was started on broad-spectrum antibiotics as well as IV fluids. The patient did not respond to conservative management of the small bowel obstruction, so the patient was taken to the OR on 09/26/2018, at which time exploratory laparotomy with lysis of adhesions and small bowel resection was performed. An incisional hernia was also repaired at that time. The patient was then transferred to the ICU following surgery. The patient was noted to have a high requirement of oxygen, so Pulmonary was consulted for further assistance with management, as well as ID for antibiotic recommendations. The patient had a slow recovery following surgery, but eventually improved enough to be transferred out of the ICU. Also the patient's pneumonia improved and he was able to be weaned off of supplemental oxygen. The patient was seen by physical therapy and slowly regained his strength, and was able to walk without any difficulty. The patient was able to tolerate a diet. The patient's pneumonia cleared up and the patient was noted to have normal oxygen saturations on room air. It was recommended by Dr. Mabry that the patient continue on Levaquin 500 mg daily for another 7 days. The patient continued to improve clinically and was ultimately cleared for discharge home on 10/08/2018. DISCHARGE MEDICATIONS: 1. Levaquin 500 mg p.o. daily x7 days. 2. Cardizem CD 120 mg p.o. daily. 3. [place] 7.5/325 one tab oral every 6 hours p.r.n. for pain. 4. Icar C 1 tab oral twice a day. 5. Multivitamin 1 tab oral daily. 6. MiraLAX 17 g p.o. daily. 7. Senokot 1 tab oral twice a day. 8. Colace 200 mg p.o. at bedtime. 9. Gabapentin 1200 mg p.o. twice a day. 10. Mucomyst 3 mL inhaled twice a day. 11. DuoNeb 3 mL inhaled every 4 hours p.r.n. DISCHARGE DIET: Low sodium diet. ACTIVITY: As tolerated. FOLLOWUP INSTRUCTIONS: The patient will need to follow up with Dr. Nestor Mabry as scheduled by his clinic. The patient will need to follow up with Dr. Vickers as scheduled by his clinic. cc: Preeti Bunn MD
== END 2018-10-08 13:42 | disposition home or self-care (01) | DRG 329 ==
LOC: ED 04:27 → SUATTDRO 04:28 → EDIPHOLD 04:28 → ICU 14:21 → 4N 09-24 16:43 → ICU 09-26 23:28 → 4N 10-01 19:11
PROVIDERS: ATTEND Internal Medicine
CPT/HCPCS: 51702; 71010; 71020; 71045; 71046; 74000; 74018; 74019; 74020; 74022; 74176; 74250; 80048; 80053; 80069; 81001; 82150; 82270; 82533; 82570; 82607; 82728; 82746; 82805; 82948; 83036; 83540; 83550; 83605; 83735; 83880; 83930; 84100; 84132; 84145; 84300; 84439; 84443; 84484; 85014; 85018; 85025; 85027; 85610; 85730; 87040; 87070; 87205; 88307; 88313; 93005; 93010; 94640; 94761; 94762; 94799; 96361; 96365; 96366; 96368; 96375; 97110; 97162; 97530; 99285; 99291; A9270; C9113; J0330; J0692; J1650; J1940; J1956; J2020; J2270; J2275; J2405; J2543; J2800; J3010; J3370; J3475; J3480; J7030; J7040; J7050; J7120; Q9974; S0164; XXXXX